=== PATIENT | male | born 1950 | race Caucasian/White ===

== ENCOUNTER 2018-05-02 09:55 | Emergency (ER) | payer MEDICARE, BC ==
[~2018-05-02] VITALS: Ht 167.6 cm; Wt 75.0 kg
[~2018-05-02 09:55] MED LIST: GLUCOPHAGE1000 MG PO; HEMOCYTE PLUS C1 CAP PO; HYDROCODONE-APA1 TAB PO; HYDROXYCHLOROQUINE; LEVAQUIN500 MG PO; MEDROL2 MG PO; PLAQUENIL200 MG PO; SYNTHROID125 MCG PO; VITAMIN D31000 UNIT PO
[2018-05-02 09:59] VITALS: Ht 167.6 cm; Wt 75.0 kg
[2018-05-02] MEDS ORDERED: CO Q-1050 MG PO (10:04)
[2018-05-02 10:37] LABS: BASOPHILS 0.5 % (0-2); EOSINOPHILS 3.5 % (0-7); HEMATOCRIT 36.8 % (42.0-54.0); HEMOGLOBIN 12.5 g/dL (13.5-17.5); IMMATURE GRANULOCYTES 0.7 % (0-5); LYMPHOCYTES 27.4 % (15-50); MCH 28.3 pg (26.0-34.0); MCV 83.3 fL (80.0-100.0); MEAN PLATELET VOLUME 8.4 fL (7.4-10.4); MONOCYTES 9.3 % (2-11); NEUTROPHILS 58.6 % (40-80); RBC 4.42 10x6/uL (4.20-6.10); RDW 13.1 % (11.5-14.5); WBC 10.5 10x3/uL (4.8-10.8)
[2018-05-02 10:48] LABS: PLATELET COUNT 238 10x3/uL (130-400)
[2018-05-02 11:02] LABS: ALBUMIN 3.2 g/dL (3.4-5.0); ALKALINE PHOSPHATASE 90 U/L (46-116); ALT (SGPT) 14 U/L (10-68); CALC OSMOLALITY 262 mosm/kg (275-300); CALCIUM 9.8 mg/dL (8.5-10.1); CARBON DIOXIDE 21.7 mmol/L (21.0-32.0); CHLORIDE - SERUM 96 mmol/L (98-107); CREATININE - SERUM 1.6 mg/dL (0.6-1.3); GLUCOSE 166 mg/dL (74-106); POTASSIUM - SERUM 4.4 mmol/L (3.5-5.1); PROTEIN - SERUM 7.2 g/dL (6.4-8.2); SODIUM 129 mmol/L (136-145); UREA NITROGEN 13 mg/dL (7-18); eGFR NON AFRICAN AMERICAN 46 mL/min (90-120)
[2018-05-02 11:15] LABS: CKMB 3.2 U/L (0.0-3.6); CREATINE KINASE 56 UL (21-232); TROPONIN-I < 0.017 ng/mL (0.000-0.060)
[2018-05-02 11:44] LABS: APPEARANCE SLT CLOUDY (CLEAR); BILIRUBIN NEGATIVE (NEGATIVE); COLOR YELLOW (YELLOW); GLUCOSE NEGATIVE (NEGATIVE); KETONE NEGATIVE (NEGATIVE); NITRITE NEGATIVE (NEGATIVE); PROTEIN TRACE mg/dL (NEGATIVE); UROBILINOGEN NORMAL (NORMAL)
[2018-05-02 11:45] LABS: BACTERIA MANY /hpf (NONE SEEN); EPITHELIAL CELLS 0-5 /hpf (0-5); GRANULAR CAST RARE /lpf (NONE SEEN); MUCUS <1+ /lpf (NONE SEEN); RED CELLS - URINE 0-5 /hpf (0-5); WHITE CELLS - URINE 25-50 /hpf (0-5)
[2018-05-02] MEDS ORDERED: LEVAQUIN500 MG PO (12:43)
[2018-05-02 13:39] VITALS: BP 150/92
== END 2018-05-02 12:58 | disposition home or self-care (01) ==
LOC: D.ER 09:55
PROVIDERS: Family Medicine
DX: T67.5XXA Heat exhaustion, unspecified, initial encounter (principal); X58.XXXA Exposure to other specified factors, initial encounter; Y93.89 Activity, other specified; Y92.019 Unspecified place in single-family (private) house as the place of occurrence of the external cause; E87.1 Hypo-osmolality and hyponatremia; N39.0 Urinary tract infection, site not specified; E11.9 Type 2 diabetes mellitus without complications; M32.9 Systemic lupus erythematosus, unspecified

== ENCOUNTER 2018-07-31 11:15 | Emergency (ER) | payer MEDICARE, BC ==
[~2018-07-31] VITALS: Ht 167.6 cm; Wt 75.5 kg
[~2018-07-31 11:15] MED LIST changes: +CO Q-1050 MG PO
[2018-07-31 11:23] VITALS: Ht 167.6 cm; Wt 75.5 kg
[2018-07-31 12:09] LABS: BASOPHILS 0.6 % (0-2); HEMATOCRIT 38.5 % (42.0-54.0); HEMOGLOBIN 13.2 g/dL (13.5-17.5); IMMATURE GRANULOCYTES 0.2 % (0-5); LYMPHOCYTES 26.7 % (15-50); MCH 29.3 pg (26.0-34.0); MCHC 34.3 g/dL (31.0-37.0); MCV 85.4 fL (80.0-100.0); MEAN PLATELET VOLUME 8.5 fL (7.4-10.4); MONOCYTES 10.2 % (2-11); NEUTROPHILS 58.3 % (40-80); PLATELET COUNT 245 10x3/uL (130-400); RBC 4.51 10x6/uL (4.20-6.10); RDW 13.8 % (11.5-14.5)
[2018-07-31 12:22] LABS: APTT 32.7 SECONDS (22.8-39.4); INR 0.98 (0.85-1.17); PROTIME 12.6 SECONDS (11.6-15.0)
[2018-07-31 12:30] LABS: ALBUMIN 3.4 g/dL (3.4-5.0); ANION GAP 16.2 mmol/L (8-16); BILIRUBIN - TOTAL 0.38 mg/dL (0.2-1.3); CALCIUM 9.1 mg/dL (8.5-10.1); CARBON DIOXIDE 24.5 mmol/L (21.0-32.0); CREATININE - SERUM 1.8 mg/dL (0.6-1.3); POTASSIUM - SERUM 4.7 mmol/L (3.5-5.1); PROTEIN - SERUM 7.7 g/dL (6.4-8.2)
[2018-07-31 13:01] LABS: APPEARANCE CLEAR (CLEAR); BILIRUBIN NEGATIVE (NEGATIVE); COLOR YELLOW (YELLOW); GLUCOSE NEGATIVE (NEGATIVE); KETONE NEGATIVE (NEGATIVE); NITRITE NEGATIVE (NEGATIVE); PROTEIN NEGATIVE (NEGATIVE); SPECIFIC GRAVITY 1.015 (1.005-1.020); UROBILINOGEN NORMAL (NORMAL)
[2018-07-31 13:02] LABS: BACTERIA FEW /hpf (NONE SEEN); EPITHELIAL CELLS 0-5 /hpf (0-5); RED CELLS - URINE 0-5 /hpf (0-5); WHITE CELLS - URINE 0-5 /hpf (0-5)
[2018-07-31 13:05] LABS: UDS - AMPHET NEGATIVE QUAL (NEGATIVE); UDS - BARB NEGATIVE QUAL (NEGATIVE); UDS - BENZO NEGATIVE QUAL (NEGATIVE); UDS - COCAINE NEGATIVE QUAL (NEGATIVE); UDS - OPIATE NEGATIVE QUAL (NEGATIVE); UDS - PCP NEGATIVE QUAL (NEGATIVE); UDS - THC NEGATIVE QUAL (NEGATIVE)
[2018-07-31 16:18] VITALS: BP 150/85
== END 2018-07-31 16:20 | disposition other institution (70) ==
LOC: D.ER 11:15
PROVIDERS: Family Medicine
DX: R41.0 Disorientation, unspecified (principal); E11.9 Type 2 diabetes mellitus without complications; M32.9 Systemic lupus erythematosus, unspecified; N28.9 Disorder of kidney and ureter, unspecified

== ENCOUNTER 2019-03-30 16:14 | Inpatient (IN) | payer MEDICARE, BC ==
[~2019-03-30] VITALS: Ht 167.6 cm; Wt 66.6 kg
--- NOTE | ~2019-03-30 | HEMODYNAMI ---
PATIENT:JETT LIMA MEDICAL RECORD: [id number] : 46 [id number] ADMISSION DATE: 03/30/19 Generatedon:03/31/201912:26 Patient name: JETT LIMA Patient #: [id number] SSN: : 1950 Date of study: 03/31/2019 Page: Of Hemodynamic Procedure Report Patient Data Patient Demographics Procedure consent was obtained First Name: JETT Gender: Male Last Name: JANIE : 1950 Patient #: [id number] Age: 69 year(s) Race: Unknown Additional ID: [id number] Contact details [address]: [address] [place] [address] State: [place] City: [place] Zip code: [address] Past Medical History Allergies: No known allergies Admission Admission Data Admission Date: 03/30/2019 Admission Time: 18:10 Room #: D.2109 Lab Results Lab Result Date: 03/31/2019 Lab Result Time: 5:45 Biochemistry Name Units Result Min Max BUN mg/dl 17 --(---*)-- 7 18 Creatinine mg/dl 1.6 --(----)-* 0.6 1.3 CBC Name Units Result Min Max Hematocrit % 30.2 *-(----)-- 42 54 Hemoglobin g/dl 10.2 *-(----)-- 13.5 17.5 Procedure Procedure Types Cath Procedure Diagnostic Procedure LHC LHC w/Coronaries Sedation Charges Moderate Sedation up to 30 minutes Procedure Description Procedure Date Procedure Date: 03/31/2019 Procedure Start Time: 11:39 Procedure End Time: 12:18 Procedure Staff Name Function Beverly Dubose RT Scrub Amish Noriega MD Performing Physician Joe Jacobs RT Monitor Volodymyr Vance RN Nurse Procedure Data Cath Procedure Fluoroscopy Diagnostic fluoroscopy Total fluoroscopy Time: time: 15.6 min 15.6 min Diagnostic fluoroscopy Total fluoroscopy dose: dose: 1579 mGy 1579 mGy Contrast Material Contrast Material Type Amount (ml) Isovue 300 185 Entry Location Entry Primary Successful Side Size Upsize Upsize Entry Closure Prado ccessful Closure Location (Fr) 1 (Fr) 2 (Fr) Remarks Device Remarks Femoral Right 5 Fr Manual artery Compression Estimated blood loss: 5 ml Diagnostic catheters Device Type Used For End Catheter Placement MULTIPACK JL 4.0 5Fr Procedure catheter DIAGNOSTIC JL 5 5Fr Procedure catheter ([id number]) MULTIPACK JL 4.0 5Fr Procedure catheter DIAGNOSTIC JL 3.5 5Fr Procedure catheter ([id number]) DIAGNOSTIC AL2 5Fr Procedure catheter ([id number]) MULTIPACK 3DRC 5Fr Procedure catheter DIAGNOSTIC AL1 5Fr Procedure catheter ([id number]) MULTIPACK Pigtail 5 Fr Procedure catheter DIAGNOSTIC MPA-2 5Fr Procedure catheter ([id number]) DIAGNOSTIC Manasquan 110cm 5 Procedure Fr catheter (892030) DIAGNOSTIC LCB 5Fr Procedure catheter ([id number]) Procedure Complications No complications Procedure Medications Medication Administration Route Dosage 0.9% NaCl I.V. 100 ml/hr Oxygen etCO2 Nasal cannula 2 l/min Heparin Flush Bag added to field 2 bags (1000units/500ml NS) Lidocaine 2% added to field 20 Versed I.V. 1 mg Fentanyl I.V. 50 mcg Hemodynamics Rest HGB: 10.2 (g/dl) Heart Rate: 111 (bpm) Pressure Samples Time Site Value (mmHg) Purpose Heart Use Rate(bpm) 11:58 LV 132/-10,11 Snapshot 101 11:59 LV 129/-2,13 Pullback 100 11:59 AO 119/54(82) Pullback 100 Gradients Valve Time Site 1 Site 2 Mean SEP/DFP Peak To Heart Use (mmHg) (sec/min) Peak Rate (mmHg) (bpm) Aortic 11:59 LV AO 6 27 10 100 129/-2,13 119/54(82) Calculations Valve P-P Mean Valve Index Valve Source Name Gradient Area Flow (cm2) Aortic 10 6 10 6 Snapshots Pre Cath Intra NCS Post Cath Vital Signs Time Heart Resp SPO2 etCO2 NIBP (mmHg) Rhythm Pain Sedation Rate (ipm) (%) (mmHg) Status Level (bpm) 11:25:47 114 16 95 0 137/89(115) NSR 0 (11) 10(A) , No pain 11:29:53 111 24 97 19.4 118/85(100) NSR 0 (11) 10(A) , No pain 11:33:59 101 24 95 20.9 99/67(79) NSR 0 (11) 10(A) , No pain 11:38:03 102 27 96 20.1 102/67(85) NSR 0 (11) 10(A) , No pain 11:42:09 99 24 96 20.1 91/62(77) NSR 0 (11) 9(A) , No pain 11:46:12 99 24 96 23.9 92/61(78) NSR 0 (11) 9(A) , No pain 11:50:16 97 22 96 10.4 90/60(75) NSR 0 (11) 9(A) , No pain 11:54:18 96 22 96 24.6 98/61(78) NSR 0 (11) 9(A) , No pain 11:58:23 101 22 96 20.9 106/60(78) NSR 0 (11) 9(A) , No pain 12:02:27 104 28 96 20.2 107/72(83) NSR 0 (11) 9(A) , No pain 12:06:31 102 23 97 17.1 107/74(87) NSR 0 (11) 9(A) , No pain 12:10:37 99 24 99 23.9 112/69(84) NSR 0 (11) 9(A) , No pain 12:14:43 100 23 100 21.6 108/74(88) NSR 0 (11) 9(A) , No pain 12:18:48 99 16 100 20.9 113/71(87) NSR 0 (11) 10(A) , No pain Medications Time Medication Route Dose Verified Delivered Reason Notes Eff ectiveness by by 11:26:55 0.9% NaCl I.V. 100 Volodymyr Volodymyr Per ml/hr Pinky Vance physician RN RN 11:27:06 Oxygen etCO2 2 Volodymyr Volodymyr for low 02 Nasal l/min Pinky Vance sats cannula RN RN 11:27:16 Heparin Flush added 2 Volodymyr Volodymyr used for Bag to bags Pinky Vance procedure (1000units/500ml field RN RN NS) 11:27:27 Lidocaine 2% added 20ml Volodymyr Volodymyr for local to vial Pinky Vance anesthetic field RN RN 11:38:12 Versed I.V. 1 mg Volodymyr Volodymyr for Lorigan Lorigan sedation RN RN 11:38:20 Fentanyl I.V. 50 Volodymyr Volodymyr for mcg Lorigan Lorshashi sedation RN registrar nurses' registry Log Time Note 11:10:25 Time tracking: Regular hours (M-F 7:00 - 5:00) 11:10:30 Plan of Care:Hemodynamics will remain stable., Cardiac rhythm will remain stable., Comfort level will be maintained., Respiratory function will remain adequate., Patient/ family verbilizes understanding of procedure., Procedure tolerated without complication., Recovers from procedure without complications.. 11:10:34 Beverly Counts RT(R) sent for patient. Start room use. 11:20:05 Patient received from [employer] II to CCL 1 Alert and oriented. Tansferred to table in Supine position. 11:20:06 Warm blankets applied, and promise hugger turned on for patient comfort. 11:20:07 Correct patient and procedure confirmed by team. 11:20:10 Signed procedure consent form obtained from patient. 11:24:44 ECG and BP/O2 sat monitors applied to patient. 11:24:45 Vital chart was started 11:26:55 0.9% NaCl 100 ml/hr I.V. was administered by Volodymyr Vance RN; Per physician; 11:27:06 Oxygen 2 l/min etCO2 Nasal cannula was administered by Volodymyr Vance RN; for low 02 sats; 11:27:16 Heparin Flush Bag (1000units/500ml NS) 2 bags added to field was administered by Volodymyr Vance RN; used for procedure; 11:27:19 Baseline sample Acquired. 11:27:22 Rhythm: sinus tachycardia 11:27:23 Full Disclosure recording started 11:27:27 Lidocaine 2% 20ml vial added to field was administered by Volodymyr Vance RN; for local anesthetic; 11:28:07 H&P Date Dictated: 03/30/2019 Within 30 days and on chart.. 11:31:00 Pre-procedure instructions explained to patient. 11:31:01 Pre-op teaching completed and patient verbalized understanding. 11:31:02 Family in patients room. 11:31:03 Patient NPO since Midnight. 11:31:07 Patient allergic to No known allergies 11:31:09 Is the patient allergic to Iodine/contrast media? No. 11:31:11 Is patient on blood thinner?No 11:31:12 Patient diabetic? Yes. 11:31:13 If diabetic: On Metformin? Yes 11:31:15 If on Metformin: Last Dose? 03/29/2019 11:31:18 Previous problem with sedation/anesthesia? No ? 11:31:21 Snore? No 11:31:22 Sleep apnea? No 11:31:23 Opens mouth fully? Yes 11:31:23 Deviated septum? No 11:31:27 Sticks out tongue? Yes 11:31:30 Airway obstruction? Yes right lower lobe resection. 11:31:33 Dentures? No ? 11:31:35 Pre procedure: right dorsailis pedis pulse 2+ Normal; easily identifiable; not easily obliterated 11:31:38 Patient pain scale 0/10 ?. 11:31:44 IV patent on arrival in right hand with 0.9% NaCl at O. 11:32:16 Lab Result : Hemoglobin 10.2 g/dl 11:32:16 Lab Result : Hematocrit 30.2 % 11:32:16 Lab Result : BUN 17 mg/dl 11:32:16 Lab Result : Creatinine 1.6 mg/dl 11:32:19 Lab results completed and on chart. 11:32:22 Right groin area was prepped with chlora-prep and draped in sterile fashion 11:32:23 Sharps counted by scrub and verified by R.N. 11:32:23 Alarms reviewed by R. N. 11:32:25 Use device set Femoral Dx 11:32:26 Bag Decanter (2002) opened to sterile field. 11:32:26 ACIST Syringe (32665) opened to sterile field. 11:32:27 Medline Cath Pack ([id number]) opened to sterile field. 11:32:28 ACIST Manifold (99398) opened to sterile field. 11:32:28 ACIST Hand Control (80028) opened to sterile field. 11:32:29 Tegaderm 4 x 4 (1626W) opened to sterile field. 11:32:30 DIAGNOSTIC Multipack 5Fr catheter set (IV3545) opened to sterile field. 11:32:30 SHEATH 5FR Savage (EYD235) opened to sterile field. 11:32:31 DIAGNOSTIC WIRE .035 260cm J wire (190826) opened to sterile field. 11:37:44 Final Timeout: patient, procedure, and site verified with staff and physician. All members of the team are in agreement. 11:37:44 --------ALL STOP TIME OUT------ 11:37:44 Physician arrived 11:37:46 Right groin site verified by team. 11:37:48 Maximum allowable Isovue 300 dose 300ml. Physician notified. (300ml for normal creatinines. For patients with creatinine of 1.7 or higher multiply weight(kg) x 5 divided by creatinine.) 11:37:51 Fire Safety Assessment: A--An alcohol-based skin anteseptic being used preoperatively., C--Open oxygen or nitrous oxide is being used., D--An ESU, laser, or fiber-optic light is being used. 11:37:53 Physical assessment completed. ASA score P 2 - A patient with mild systemic disease as per Amish Noriega MD. 11:37:55 Sedation plan: IV Moderate Sedation Medication:Versed, Fentanyl 11:38:05 Zero performed for pressure channel P1 11:38:12 Versed 1 mg I.V. was administered by Volodymyr Vance RN; for sedation; 11:38:20 Fentanyl 50 mcg I.V. was administered by Volodymyr Vance RN; for sedation; 11:39:45 Procedure started. 11:39:47 Local anesthetic to right femoral artery with Lidocaine 2% by Amish Noriega MD.INITIAL ACCESS ONLY 11:39:58 A 5 Fr sheath was inserted into the Right Femoral artery 11:40:03 A MULTIPACK JL 4.0 5Fr catheter was advanced over the wire and used for Procedure. 11:40:33 Catheter removed. unable to cannulate vessel. 11:41:22 A DIAGNOSTIC JL 5 5Fr catheter (921321F) was advanced over the wire and used for Procedure. 11:41:43 LCA angiography performed. 11:43:32 Catheter exchanged over wire. 11:43:36 A MULTIPACK JL 4.0 5Fr catheter was advanced over the wire and used for Procedure. 11:45:51 Catheter removed. unable to cannulate vessel. 11:46:00 A DIAGNOSTIC JL 3.5 5Fr catheter (995029G) was advanced over the wire and used for Procedure. 11:48:31 Catheter removed. unable to cannulate vessel. 11:48:40 A DIAGNOSTIC AL2 5Fr catheter (421709T) was advanced over the wire and used for Procedure. 11:50:58 Catheter removed. unable to cannulate vessel. 11:51:03 A MULTIPACK 3DRC 5Fr catheter was advanced over the wire and used for Procedure. 11:51:39 RCA angiography performed. 11:53:29 A DIAGNOSTIC AL1 5Fr catheter (351061G) was advanced over the wire and used for Procedure. 11:54:50 RCA / LAD angiography performed. 11:57:15 Catheter exchanged over wire. 11:57:20 A MULTIPACK Pigtail 5 Fr catheter was advanced over the wire and used for Procedure. 11:58:37 LV gram done using CASTELLON 11:58:38 Injector settings: Ml/sec: 10, Volume: 20, 11:58:40 LV hemodynamics recorded. 11:59:02 EF : 50 % 11:59:12 Aortic Root visualized 12:00:45 Catheter exchanged over wire. 12:01:56 A DIAGNOSTIC MPA-2 5Fr catheter (214260M) was advanced over the wire and used for Procedure. 12:03:45 LCA angiography performed. 12:04:50 A DIAGNOSTIC Man[place]quan 110cm 5 Fr catheter (449160) was advanced over the wire and used for Procedure. 12:07:07 Catheter removed. unable to cannulate vessel. 12:07:15 GUIDE 5FR EBU 3.0 catheter (UX4GCE55) opened to sterile field. 12:07:27 5 Fr ebu 3.0 guide catheter was inserted over the wire 12:09:08 LCA angiography performed. 12:10:47 Catheter exchanged over wire. 12:11:13 A DIAGNOSTIC LCB 5Fr catheter (067545B) was advanced over the wire and used for Procedure. 12:12:26 LCA angiography performed. 12:15:10 Catheter removed. 12:15:13 EXOSEAL 5Fr (EX500) opened to sterile field. 12:15:23 Sheath removed intact; hemostasis achieved with Manual Compression to the Right Femoral artery. 12:15:24 Procedure ended.(Physican Out) 12:15:43 Fluoroscopy time 15.60 minutes. 12:15:48 Fluoroscopy dose: 1579 mGy 12:15:48 Flurop Dose total: 1579 12:15:56 Contrast amount:Isovue 300 185ml. 12:15:58 Insertion/operative site no bleeding no hematoma. 12:15:58 Sharps counted by scrub and verified by R.N. 12:16:02 Post-op/insertion site Right Femoral artery dressed using a 4 x 4 and Tegaderm. 12:16:07 Post right femoral artery:stable, soft, clean and dry 12:16:08 Post Procedure Pulses reassessed and unchanged 12:16:12 Post-procedure physical assessment completed. ASA score P 2 - A patient with mild systemic disease as per Amish Noriega MD. 12:16:14 Post procedure rhythm: unchanged. 12:16:16 Estimated blood loss: 5 ml 12:16:18 Patient needs reinforcement of post procedure teaching. 12:16:18 Post procedure instruction explained to patient.Patient verbalizes understanding. 12:16:43 Procedure type changed to Cath procedure, Diagnostic procedure, LHC, LHC w/Coronaries, Sedation Charges, Moderate Sedation up to 30 minutes 12:18:32 Procedure and supply charges have been captured, reviewed, submitted and are correct. 12:18:34 Procedure Complication : No complications 12:18:37 Vital chart was stopped 12:18:38 See physician's report for complete and final results. 12:18:39 Report given to PCU. 12:18:42 Patient transfered to PCU with Stretcher. 12:18:43 Full Disclosure recording stopped 12:18:43 Procedure ended. 12:18:48 End room use (Document Last) Device Usage Item Name Manufacture Quantity Catalog Hospital Part Current Minimal L ot# / Number Charge Number Stock Stock Serial# Code ACIST Acist 1 07452 676568 244070 635814 20 Syringe Medical (18499) Systems Inc Bag Microtek 1 188956 24301 266697 5 Decanter Medical Inc. () Medline Medline 1 [id number] 276657 50453 994752 5 Cath Pack ([id number]) ACIST Hand Acist 1 37226 417666 813809 369583 5 Control Medical (84949) Systems Inc ACIST Acist 1 35679 499257 235894 725985 5 Manifold Medical (59291) Systems Inc Tegaderm 4 3M 1 1626W 335160 318593 153259 5 x 4 (1626W) SHEATH 5FR Terumo 1 [id number] 639924 028112 329237 5 Savage (NYD402) DIAGNOSTIC Cardinal 1 [id number] 723996 93765 724969 30 Multipack Health 5Fr catheter set (ZX6253) DIAGNOSTIC St Piyush 1 411685 308265 731610 031196 30 WIRE .035 260cm J wire (950998) MULTIPACK Cardinal 1 386071 5 JL 4.0 5Fr Health catheter DIAGNOSTIC Cardinal 1 958470J 771885 481274 867737 5 JL 5 5Fr Health catheter (112248B) DIAGNOSTIC Cardinal 1 672591I 618286 649641 375121 5 JL 3.5 5Fr Health catheter (630427C) DIAGNOSTIC Cardinal 1 760993B 878440 520336 356380 15 AL2 5Fr Health catheter (410935H) MULTIPACK Cardinal 1 600344 5 3DRC 5Fr Health catheter DIAGNOSTIC Cardinal 1 510288Y 347143 798346 737955 15 AL1 5Fr Health catheter (990503T) MULTIPACK Cardinal 1 698384 5 Pigtail 5 Health Fr catheter DIAGNOSTIC Cardinal 1 626364Y 649338 658643 385568 5 MPA-2 5Fr Health catheter (563935D) DIAGNOSTIC Terumo 1 40-3853 174928 969676 494602 5 [place] 110cm 5 Fr catheter (694804) GUIDE 5FR Medtronic 1 [id number] 930371 778497 587179 1 EBU 3.0 catheter ([id number]) DIAGNOSTIC Cardinal 1 966112D 401249 151661 892425 5 LCB 5Fr Health catheter (216199I) EXOSEAL 5Fr Cardinal 1 EX500 624520 326960 343390 10 (EX500) Health Signature Audit Seaman Stage Time Signature Unsigned Intra-Procedure 03/31/2019 Joe Jacobs RT(R) 12:22:58 PM RT(R) 03/31/2019 12:26:22 PM Intra-Procedure 03/31/2019 Joe Jacobs 12:26:42 PM RT(R) Signatures Monitor : Joe Jacobs RT Signature : Date : Time : [address] [place] [address]
[2019-03-30] MEDS ORDERED: GLUCOPHAGE500 MG PO (16:31)
[2019-03-30] MEDS ORDERED: BAYER CHEWABLE81 MG PO (16:32)
[2019-03-30] MEDS ORDERED: [UNRECOGNIZED DRUG - OTHER] (16:32)
[2019-03-30] MEDS ORDERED: LIPITOR20 MG PO (16:36)
[2019-03-30] MEDS ORDERED: COZAAR50 MG PO (16:37)
[2019-03-30 17:21] LABS: BASOPHILS 0.2 % (0-2); EOSINOPHILS 0.5 % (0-7); HEMATOCRIT 33.4 % (42.0-54.0); HEMOGLOBIN 11.5 g/dL (13.5-17.5); IMMATURE GRANULOCYTES 0.5 % (0-5); LYMPHOCYTES 9.7 % (15-50); MCH 28.8 pg (26.0-34.0); MCHC 34.4 g/dL (31.0-37.0); MCV 83.7 fL (80.0-100.0); MEAN PLATELET VOLUME 8.1 fL (7.4-10.4); MONOCYTES 8.1 % (2-11); PLATELET COUNT 254 10x3/uL (130-400); RBC 3.99 10x6/uL (4.20-6.10); RDW 13.2 % (11.5-14.5); WBC 16.7 10x3/uL (4.8-10.8)
[2019-03-30 17:34] LABS: INR 1.13 (0.85-1.17)
[2019-03-30 17:36] LABS: ALBUMIN 3.1 g/dL (3.4-5.0); ALKALINE PHOSPHATASE 99 U/L (46-116); ALT (SGPT) 15 U/L (10-68); BILIRUBIN - TOTAL 0.54 mg/dL (0.2-1.3); CALC OSMOLALITY 257 mosm/kg (275-300); CALCIUM 8.6 mg/dL (8.5-10.1); CARBON DIOXIDE 20.7 mmol/L (21.0-32.0); CHLORIDE - SERUM 93 mmol/L (98-107); CREATININE - SERUM 1.7 mg/dL (0.6-1.3); GLUCOSE 136 mg/dL (74-106); POTASSIUM - SERUM 4.8 mmol/L (3.5-5.1); PROTEIN - SERUM 7.3 g/dL (6.4-8.2); SODIUM 127 mmol/L (136-145); UREA NITROGEN 16 mg/dL (7-18); eGFR NON AFRICAN AMERICAN 42 mL/min (90-120)
[2019-03-30 17:44] LABS: UDS - AMPHET NEGATIVE QUAL (NEGATIVE); UDS - BARB NEGATIVE QUAL (NEGATIVE); UDS - BENZO NEGATIVE QUAL (NEGATIVE); UDS - COCAINE NEGATIVE QUAL (NEGATIVE); UDS - OPIATE NEGATIVE QUAL (NEGATIVE); UDS - PCP NEGATIVE QUAL (NEGATIVE); UDS - THC NEGATIVE QUAL (NEGATIVE)
[2019-03-30 17:47] LABS: CKMB 0.7 U/L (0.0-3.6); CREATINE KINASE 47 UL (21-232); THYROID STIMULATING HORMONE 0.21 uIU/mL (0.36-3.74)
[2019-03-30 17:51] LABS: APPEARANCE CLEAR (CLEAR); BILIRUBIN NEGATIVE (NEGATIVE); COLOR YELLOW (YELLOW); GLUCOSE NEGATIVE (NEGATIVE); KETONE NEGATIVE (NEGATIVE); NITRITE NEGATIVE (NEGATIVE); PROTEIN 1+ mg/dL (NEGATIVE); UROBILINOGEN NORMAL (NORMAL)
[2019-03-30 18:00] LABS: TROPONIN-I < 0.017 ng/mL (0.000-0.060)
--- NOTE | 2019-03-30 18:01 | NUR ---
Critical lab Magnesium 1.0 dr. posada informed at 7776
--- NOTE | 2019-03-30 18:19 | MORECARE ---
CASE MANAGEMENT DISCHARGE SUMMARY PATIENT: JETT LIMA UNIT: [id number] ADM DATE: 03/30/19 AGE: 69 : 48 SEX: M ROOM/BED: D.2100 AUTHOR: JENNIFER CLARK PHYSICIAN: REFERRING PHYSICIAN: SAM HINTON MD DATE OF SERVICE: 03/30/19 Discharge Plan Patient Name: JETT LIMA Facility: [facility]:[place] : 1950 Planned Disposition: Home Anticipated Discharge Date: 04/01/19 Discharge Date: Expected LOS: 2 Initial Reviewer: [email or web address] Initial Review Date: 03/30/2019 Generated: 03/30/19 7:19 pm Patient Name: JETT LIMA Page 94225 at 1819 All edits/amendments must be made on the electronic document DICTATION DATE: 03/30/191818 DIGITAL CONTENT MARKETING MANAGER: TAMIKO 03/30/191818 RPT#: [id number] DC DATE: STATUS: ADM IN [facility] [address] [place] [address] END OF REPORT
--- NOTE | 2019-03-30 18:29 | MORECARE ---
CASE MANAGEMENT DISCHARGE SUMMARY PATIENT: JETT MARIE UNIT: [id number] ADM DATE: 03/30/19 AGE: 69 : 48 SEX: M ROOM/BED: D.8128 AUTHOR: EDUARDO,JENNIFER PHYSICIAN: REFERRING PHYSICIAN: SAM HINTON MD DATE OF SERVICE: 03/30/19 Discharge Plan Patient Name: JETT MARIE Facility: [facility]:[place] : 1950 Planned Disposition: Home Anticipated Discharge Date: 04/01/19 Discharge Date: Expected LOS: 2 Initial Reviewer: [email or web address] Initial Review Date: 03/30/2019 Generated: 03/30/19 7:28 pm DCP- Discharge Planning Updated by [email or web address]: Melody Vázquez on 03/30/19 5:[address] Patient Name: JETT MARIE Admission Status: ER Accout number: [id number] Admission Date: 03-30-2019 : 1950 Admission Diagnosis: Attending: CINDI HINTON Current LOS: 1 Anticipated DC Date: 04-01-2019 Planned Disposition: Home with independently. Denied dc needs at this time. Primary Insurance: MEDICARE A & B Discharge Planning Comments: CM met with patient and his , Marina Marie, to complete initial dc planning assessment. CM educated patient on the CM role and verbal consent given by patient to complete assessment. CM verified patient's address, phone number, and emergency contact phone numbers. Patient lives at home independently with his . At discharge patient plans to return home with his and feels this is a safe discharge. CM discussed availability of home health, rehab services, and medical equipment. Patient denied known discharge needs at this time. Patient reports his will transport him home at time of discharge. CM will continue to follow and will assist as needed with dc plans/needs. Social Media Marketing Specialist: Melody Vázquez RN, [facility] DCPIA - Discharge Planning Initial Assessment Updated by [email or web address]: Melody Vázquez on 03/30/19 6:20 pm * Is the patient Alert and Oriented? Yes * How many steps to enter\exit or inside your home? * PCP Dr. Marcelino * Pharmacy [facility] near the [facility] * Preadmission Environment Home with Family * ADLs Independent * Equipment Glucometer * Other Equipment tries to check his sugar everyday. * List name and contact numbers for known caregivers / representatives who currently or will assist patient after discharge: Marina Marie - - [phone] * Verbal permission to speak to the caregivers and representatives has been obtained from the patient. Yes * Community resources currently utilized None * Additional services required to return to the preadmission environment? No * Can the patient safely return to the preadmission environment? Yes * Has this patient been hospitalized within the prior 30 days at any hospital? No Last DP export: 03/30/19 5:19 p Patient Name: JETT MARIE Page 96220 at 1829 All edits/amendments must be made on the electronic document DICTATION DATE: 03/30/191827 COLOR COATER: TAMIKO 03/30/191827 RPT#: [id number] DC DATE: STATUS: ADM IN [facility] [address] [place] [address] END OF REPORT
--- NOTE | 2019-03-30 19:28 | NUR ---
second EKG completed at [address] posada request - EKG showed Sinus Tachycardia
[2019-03-30 19:35] VITALS: BP 134/81
[2019-03-30 20:00] VITALS: BP 108/63
[2019-03-30 20:02] VITALS: BP 108/63; BMI 27.6
[2019-03-30 23:25] LABS: CREATINE KINASE 75 UL (21-232)
[2019-03-30 23:27] LABS: TROPONIN-I 0.386 ng/mL (0.000-0.060)
--- NOTE | 2019-03-30 23:36 | NUR ---
NOTIFIED OF ELEVATED TROP BY LAB. PAGED AT THIS TIME.
--- NOTE | 2019-03-30 23:51 | NUR ---
HAS YET TO RETURN CALL. PAGED A SECOND TIME.
[2019-03-31] VITALS: BP 98/61
--- NOTE | 2019-03-31 00:04 | NUR ---
MAURILIO BANGURA PAGED AT THIS TIME.
[2019-03-31 04:00] VITALS: BP 114/67
[2019-03-31 06:10] LABS: BASOPHILS 0.2 % (0-2); EOSINOPHILS 0.2 % (0-7); HEMATOCRIT 30.2 % (42.0-54.0); HEMOGLOBIN 10.2 g/dL (13.5-17.5); IMMATURE GRANULOCYTES 0.3 % (0-5); LYMPHOCYTES 12.7 % (15-50); MCH 28.3 pg (26.0-34.0); MCHC 33.8 g/dL (31.0-37.0); MCV 83.9 fL (80.0-100.0); MEAN PLATELET VOLUME 8.2 fL (7.4-10.4); MONOCYTES 6.3 % (2-11); NEUTROPHILS 80.3 % (40-80); PLATELET COUNT 257 10x3/uL (130-400); RDW 13.3 % (11.5-14.5); WBC 19.5 10x3/uL (4.8-10.8)
[2019-03-31 06:41] LABS: ALKALINE PHOSPHATASE 78 U/L (46-116); ALT (SGPT) 12 U/L (10-68); BILIRUBIN - TOTAL 0.63 mg/dL (0.2-1.3); CALC OSMOLALITY 263 mosm/kg (275-300); CALCIUM 8.1 mg/dL (8.5-10.1); CARBON DIOXIDE 20.4 mmol/L (21.0-32.0); CHLORIDE - SERUM 98 mmol/L (98-107); CKMB 10.9 U/L (0.0-3.6); CREATININE - SERUM 1.6 mg/dL (0.6-1.3); GLUCOSE 110 mg/dL (74-106); POTASSIUM - SERUM 4.5 mmol/L (3.5-5.1); PROTEIN - SERUM 6.1 g/dL (6.4-8.2); SODIUM 130 mmol/L (136-145); UREA NITROGEN 17 mg/dL (7-18); eGFR NON AFRICAN AMERICAN 45 mL/min (90-120)
[2019-03-31 06:47] LABS: ALBUMIN 2.3 g/dL (3.4-5.0); CREATINE KINASE 312 UL (21-232)
[2019-03-31 06:48] LABS: TROPONIN-I 2.676 ng/mL (0.000-0.060)
[2019-03-31 07:46] VITALS: BP 100/56
--- NOTE | 2019-03-31 09:44 | NUR ---
PT LAYING IN BED ALERT AND ORIENTRED. PT COUGHING UP RED/BROWN TINGED SPUTUM. PT RR EVEN AND UNLABORED AT THIS TIME. PT RUNNING SINUS TACH 108 ON TELEMETRY, PER SOPHIE OVEN TECHNICIAN. PT TEMP 98.6 AT THIS TIME. PREVIOUS NURSE TREATED FEVER WITH TYLENOL. NO S/S OF DISTRESS AT THIS TIME. PT NPO FOR HEART CATH TODAY. BED LOW CALL LIGHT WITHIN REACH. WILL CONTINUE TO MONITOR.
--- NOTE | 2019-03-31 10:33 | NUR ---
I have reviewed this patient and I concur with the Shift Assessment completed by the Licensed Practical Nurse today this shift.
--- NOTE | 2019-03-31 10:42 | NUR ---
LEAD SOFTWARE QA ENGINEER CALLED FOR PRE-OP ON PT.
[2019-03-31 11:33] VITALS: BP 111/66
--- NOTE | 2019-03-31 12:30 | NUR ---
PT RETURNED FROM BACK TENDER CYLINDER ALERT AND ORIENTED RR EVEN AND UNLABORED VITALS STABLE. PT DENIES ANY PAIN OR NEEDS AT THIS TIME. BED LOW CALL LIGHT WITHIN REACH. WILL CONTINUE TO MONITOR.
[2019-03-31 12:35] LABS: % SATURATION 8 % (15-55); IRON 12 ug/dl (35-150); TOTAL IRON BIND CAPACITY 146 ug/dl (260-445); UNSAT IRON BIND CAPACITY 134 ug/dl (150-375)
[2019-03-31 13:50] LABS: HEMATOCRIT 31.3 % (42.0-54.0); HEMOGLOBIN 10.7 g/dL (13.5-17.5); MCH 28.8 pg (26.0-34.0); MCHC 34.2 g/dL (31.0-37.0); MCV 84.1 fL (80.0-100.0); MEAN PLATELET VOLUME 8.1 fL (7.4-10.4); RBC 3.72 10x6/uL (4.20-6.10); RDW 13.5 % (11.5-14.5)
[2019-03-31 13:55] LABS: PROTIME 16.4 SECONDS (11.6-15.0)
[2019-03-31 13:59] LABS: APTT 41.5 SECONDS (22.8-39.4); INR 1.38 (0.85-1.17)
[2019-03-31 15:10] VITALS: BP 127/73
--- NOTE | 2019-03-31 15:21 | NUR ---
PT STARTED ON HEPARIN DRIP. PT ALERT AND ORIENTED. DENIES ANY PAIN OR NEEDS AT THIS POINT. BED LOW CALL LIGHT WITHIN REACH. WILL CONTINUE TOMARROW.
--- NOTE | 2019-03-31 19:28 | NUR ---
PT IN BED AT BEDSIDE. DRESSED WOUND TO L LEG USING A WET TO DRY TECHNIQUE. THIS IS PATIENTS HOME ROUTINE PRESCRIBED BY DR. VILLAREAL. PT DENIES NEEDS AT THIS TIME.
[2019-03-31 20:00] VITALS: BP 118/62
[2019-04-01] VITALS (7 sets, daily range): BP systolic 116–152; BP diastolic 73–98
[2019-04-01 02:48] LABS: BASOPHILS 0.2 % (0-2); EOSINOPHILS 2.1 % (0-7); HEMATOCRIT 30.4 % (42.0-54.0); HEMOGLOBIN 10.2 g/dL (13.5-17.5); IMMATURE GRANULOCYTES 0.4 % (0-5); LYMPHOCYTES 14.7 % (15-50); MCH 28.4 pg (26.0-34.0); MCHC 33.6 g/dL (31.0-37.0); MCV 84.7 fL (80.0-100.0); MEAN PLATELET VOLUME 8.2 fL (7.4-10.4); NEUTROPHILS 75.6 % (40-80); PLATELET COUNT 252 10x3/uL (130-400); RBC 3.59 10x6/uL (4.20-6.10); RDW 13.3 % (11.5-14.5); WBC 15.9 10x3/uL (4.8-10.8)
[2019-04-01 03:01] LABS: ALBUMIN 2.3 g/dL (3.4-5.0); ANION GAP 17.4 mmol/L (8-16); BILIRUBIN - TOTAL 0.44 mg/dL (0.2-1.3); CALCIUM 8.2 mg/dL (8.5-10.1); CARBON DIOXIDE 19.1 mmol/L (21.0-32.0); CREATININE - SERUM 1.4 mg/dL (0.6-1.3); MAGNESIUM - SERUM 1.5 mg/dL (1.8-2.4); PHOSPHOROUS 2.5 mg/dL (2.5-4.9); POTASSIUM - SERUM 4.5 mmol/L (3.5-5.1); PROTEIN - SERUM 6.3 g/dL (6.4-8.2)
--- NOTE | 2019-04-01 07:00 | NUR ---
RECEIVED REPORT. ASSUMED CARE OF PATIENT. CALL LIGHT WITHIN REACH. ALERT/ORIENTED. RESP EVEN AND UNLABORED. NO DISTRESS.
--- NOTE | 2019-04-01 07:21 | NUR ---
PATIENT LEFT UNIT VIA WHEELCHAIR FOR CTA OF CHEST AT THIS TIME.
--- NOTE | 2019-04-01 07:41 | NUR ---
RETURNED FROM CTA. HEPARIN AND FLUIDS INFUSING ORDERED. NO DISTRESS.
--- NOTE | 2019-04-01 11:10 | NUR ---
FSBS 142. NO INSULIN COVERAGE PER SLIDING SCALE.
--- NOTE | 2019-04-01 11:23 | NUR ---
RECEIVED VERBAL ORDER FROM [place] TO CHANGE CODE STATUS IN COMPUTER PATIENT PROVIDED TO US ADVANCED PLAN OF CARE WITH QUALITY OF LIFE MEASURES THAT PATIENT HAS DESIGNATED FOR HIMSELF. MICKEY WHITING CHARGE CO SIGNED ORDER WITH THIS BONDING MACHINE SETTER.
--- NOTE | 2019-04-01 16:12 | NUR ---
FSBS 149. NO INSULIN PER SLIDING SCALE. HUMIDIFICATION PLACED TO OXYGEN AT THIS TIME. NO DISTRESS.
--- NOTE | 2019-04-01 16:44 | NUR ---
RAPID RESPONSE CALLED DUE TO PATIENT TACHYCARDIC AND COMPLAINING OF DYSPNEA. RT CALLED TO BEDSIDE. O2 INCREASED TO 6 LITERS. PATIENT SWITCHED TO HIGH FLOW NASAL CANULA PATIENT O2 SATURATION 84%. ICU STAFF, RADIOLOGY, AND LAB AT BEDSIDE. EKG COMPLETE AT THIS TIME.
[2019-04-01 16:53] LABS: BASOPHILS 0.2 % (0-2); EOSINOPHILS 1.9 % (0-7); HEMATOCRIT 33.5 % (42.0-54.0); HEMOGLOBIN 11.3 g/dL (13.5-17.5); IMMATURE GRANULOCYTES 0.4 % (0-5); LYMPHOCYTES 13.3 % (15-50); MCH 28.8 pg (26.0-34.0); MCHC 33.7 g/dL (31.0-37.0); MCV 85.2 fL (80.0-100.0); MEAN PLATELET VOLUME 8.2 fL (7.4-10.4); MONOCYTES 6.8 % (2-11); NEUTROPHILS 77.4 % (40-80); PLATELET COUNT 250 10x3/uL (130-400); RBC 3.93 10x6/uL (4.20-6.10); RDW 13.3 % (11.5-14.5); WBC 16.6 10x3/uL (4.8-10.8)
--- NOTE | 2019-04-01 17:02 | NUR ---
SPOKE WITH DR MORA REGARDING RAPID RESPONSE, PT HEART RATE IS 137-140S SINUS TACH PER EKG. PT EXPERIENCING SHORTNESS OF BREATH DURIING INITIATION OF RAPID RESPONSE. PULSE OX 86% UPON ARRIVAL AT 3L NC. PER RT PTS PULSE OX TRENDS 89-93% ON 3L NC. 15L HIGH FLOW NC PLACED, OXYGEN SAT INCREASED TO 93%. DR MORA UPDATED OF THIS. ORDER RECIEVED FROM DR MORA TO OBTAIN STAT CTA CHEST FOR PE PROTOCOL.
[2019-04-01 17:06] LABS: ALBUMIN 2.4 g/dL (3.4-5.0); ALKALINE PHOSPHATASE 104 U/L (46-116); ALT (SGPT) 26 U/L (10-68); BILIRUBIN - TOTAL 0.43 mg/dL (0.2-1.3); CALCIUM 8.3 mg/dL (8.5-10.1); CARBON DIOXIDE 20.9 mmol/L (21.0-32.0); CHLORIDE - SERUM 96 mmol/L (98-107); CREATININE - SERUM 1.5 mg/dL (0.6-1.3); POTASSIUM - SERUM 4.4 mmol/L (3.5-5.1); PROTEIN - SERUM 6.9 g/dL (6.4-8.2); SODIUM 127 mmol/L (136-145); UREA NITROGEN 13 mg/dL (7-18); eGFR NON AFRICAN AMERICAN 49 mL/min (90-120)
[2019-04-01 17:07] LABS: CALC OSMOLALITY 257 mosm/kg (275-300); GLUCOSE 149 mg/dL (74-106)
[2019-04-01 17:19] LABS: ANION GAP 15.1 mmol/L (8-16); CARBON DIOXIDE 20.4 mmol/L (21.0-32.0); CREATININE - SERUM 1.5 mg/dL (0.6-1.3); POTASSIUM - SERUM 4.5 mmol/L (3.5-5.1)
[2019-04-01 17:23] LABS: CKMB 22.8 U/L (0.0-3.6); CREATINE KINASE 266 UL (21-232)
[2019-04-01 17:24] LABS: TROPONIN-I 3.293 ng/mL (0.000-0.060)
--- NOTE | 2019-04-01 17:50 | NUR ---
SPOKE WITH TO UPDATE HER ON PATIENTS CONDITION AND THAT HAD BEEN NOTIFIED AND A CTA OF THE CHEST WAS ORDERED. AWAITING RESULTS. NOTIFIED OF ABNORMAL TROPONIN AND REMINDED MD THAT PATIENT UNABLE TO BE STENTED AND IN NEED OF CABG AND THAT IS ON THE CASE AND THAT PATIENT IS CURRENTLY ON A HEPARIN DRIP. NO NEW ORDERS RECIEVED. AWAITING FOR CTA TO RESULT TO CALL BACK FOR ANY ADDITIONAL ORDERS. SPOKE WITH PATIENTS TO NOTIFY HER OF PATIENT EPISODE OF DYSPNEA AND NOW PATIENT HAS RETURNED TO BASELINE. THANKED THIS SALOON KEEPER FOR CALLING.
--- NOTE | 2019-04-01 17:58 | NUR ---
PATIENT SITTING IN BED. STATES HE DOESN'T FEEL BAD NOW THAT THE COUGHING HAS STOPPED. PATIENT WITH ATTENTION TOWARD TELEVISION. NO DISTRESS. CALL LIGHT WITHIN REACH. O2 SAT 93% ON 10 LITERS VIA HIGH FLOW. BP 152/61.
--- NOTE | 2019-04-01 18:29 | NUR ---
DR.ST.JOHN BORWN TO INFORM OF CTA CHEST RESULTS
--- NOTE | 2019-04-01 18:33 | NUR ---
NEW ORDERS RECEIVED FROM FOR METOPROLOL 50MG NOW AND BID FOR ST 143, BP 143/86.
--- NOTE | 2019-04-01 18:48 | NUR ---
METOPROLOL INITIATED. ASSISTED PATIENT BACK FROM RESTROOM. PATIENT LYING IN BED WITH HOB ELEVATED AT THIS TIME. CALL LIGHT WITHIN REACH.
--- NOTE | 2019-04-01 19:23 | NUR ---
PT IN BED. WATCHING TELEVISION. DENIES NEEDS AT THIS TIME.
--- NOTE | 2019-04-01 22:16 | NUR ---
PT 02 SAT AT 83% RESPIRATIONS AT 40. MD PAGED AND NOTIFIED OF PT CONDITION. ORDERS GIVEN. INFORMED [employer] HISTORY TEACHER OF MD ORDER TO TRANSFER PT.
--- NOTE | 2019-04-01 23:00 | NUR ---
RECEIVED PT FROM FLOOR TO ICU ROOM 0354. PT ALERT AND ORIENTED X4 DENIES PAIN OR SOB. PLACED ON BIPAP PER TDE RT. PLACED ON MONITOR ALARMS SET ON AND AUDIBLE. RIGHT HAND PIV 20 GUAGE PATENT HEPARIN GTT INFUSING.
--- NOTE | 2019-04-01 23:30 | NUR ---
BIPAP O2 DOWN TO 80% SEE RT NOTES
[2019-04-02] VITALS (24 sets, daily range): BP systolic 113–145; BP diastolic 76–98
--- NOTE | 2019-04-02 01:00 | NUR ---
PT REQUESTING URINAL URINE CLEAR YELLOW URINE
[2019-04-02 02:55] LABS: BASOPHILS 0.1 % (0-2); EOSINOPHILS 0.1 % (0-7); HEMATOCRIT 32.4 % (42.0-54.0); HEMOGLOBIN 10.9 g/dL (13.5-17.5); IMMATURE GRANULOCYTES 0.3 % (0-5); LYMPHOCYTES 7.2 % (15-50); MCH 28.5 pg (26.0-34.0); MCHC 33.6 g/dL (31.0-37.0); MCV 84.6 fL (80.0-100.0); MEAN PLATELET VOLUME 8.3 fL (7.4-10.4); MONOCYTES 3.5 % (2-11); NEUTROPHILS 88.8 % (40-80); PLATELET COUNT 253 10x3/uL (130-400); RBC 3.83 10x6/uL (4.20-6.10); RDW 13.3 % (11.5-14.5); WBC 18.1 10x3/uL (4.8-10.8)
--- NOTE | 2019-04-02 03:00 | NUR ---
REASSESSMENT BIPAP DOWN TO 40 TOLERATING WELL RESTING DENIES PAIN CPOC
[2019-04-02 03:06] LABS: ALBUMIN 2.1 g/dL (3.4-5.0); BILIRUBIN - TOTAL 0.46 mg/dL (0.2-1.3); CALCIUM 8.2 mg/dL (8.5-10.1); CARBON DIOXIDE 20.6 mmol/L (21.0-32.0); CREATININE - SERUM 1.5 mg/dL (0.6-1.3); MAGNESIUM - SERUM 1.7 mg/dL (1.8-2.4); POTASSIUM - SERUM 4.6 mmol/L (3.5-5.1); PROTEIN - SERUM 6.7 g/dL (6.4-8.2)
--- NOTE | 2019-04-02 05:00 | NUR ---
DR ROMANO CALLED TO CHECK ON PT STATUS ORDERED ABG AND CHEST XRAY
--- NOTE | 2019-04-02 07:28 | NUR ---
UP IN BED AWAKE, BIPAP IN PLACE. PT DENIES ANY NEEDS. VSS. TURNS SELF Q2H. NO ACUTE DISTRESS NOTED. WILL CONTINUE PLAN OF CARE.
--- NOTE | 2019-04-02 09:20 | NUR ---
OXYGEN SATURATION DECREASSED TO 82% WITH GOOD WAVEFORM AT 4L HIGH FLOW NASAL CANNULA. BIPAP PLACED AT THIS TIME, FIO2 OF 40%, OXYGEN SATURATION STILL AT 82% WITH GOOD WAVEFORM. FIO2 INCREASED TO 45% ON BIPAP, OXYGEN SATURATION INCREASED UP TO 90% THEN HELD AT 95% WITH GOOD WAVEFORM. AT BEDSIDE. PT DENIES ANY NEEDS OR DISCOMFORTS. WILL CONTINUE PLAN OF CARE.
--- NOTE | 2019-04-02 11:09 | NUR ---
IV PLACED TO LT FOREARM, 20G, FLUSHES WELL X 1 ATTEMPT.
[2019-04-02 11:20] LABS: TROPONIN-I 14.273 ng/mL (0.000-0.060)
--- NOTE | 2019-04-02 11:40 | NUR ---
NOTED TROPONIN ELEVATION FROM [address] MOAR CALLED AND NOTIFIED, STATED HE WOULD SPEAK WITH DR CASTELLANOS TOMORROW FOR FURTHER POSSIBLE ORDERS BUT UNTIL THEN KEEP NPO AFTER MIDNIGHT. ORDERS PLACED.
--- NOTE | 2019-04-02 11:58 | NUR ---
INCENTIVE SPIROMETER EFFORT NOTED AT 1500. PT STATES HE WILL USE IS AND FLUTTER QH; 10 TIMES A PIECE. NO ACUTE DISTRESS NOTED. WILL CONTINUE PLAN OF CARE.
--- NOTE | 2019-04-02 12:02 | NUR ---
PER DR ROMANO, 4 HOURS ON AND OFF BIPAP. AT BEDSIDE DURING PHYSICIAN ROUNDING, ALL QUESTIONS AND CONCERNS ADRESSED. WILL CONTINUE PLAN OF CARE.
--- NOTE | 2019-04-02 13:29 | NUR ---
BED BATH GIVEN USING HIPICLENS, TOTAL LINEN CHANGE PROVIDED. VERY SMALL BOWEL MOVEMENT/SMEAR NOTED DURING CLEAN UP, LIQUID BROWN, NOT ENOUGH FOR SPECIMEN TO BE OBTAINED; ABSORBED TO LINENS. DESTINEE CARE PROVIDED. NO ACUTE DISTRESS NOTED. WILL CONTINUE PLAN OF CARE.
--- NOTE | 2019-04-02 15:31 | NUR ---
UP IN BED WATCHING TV AT THIS TIME, AT BEDSIDE. DENIES ANY NEEDS. NO ACUTE DISTRESS NOTED. CALL LIGHT IN REACH. WILL CONTINUE PLAN OF CARE.
--- NOTE | 2019-04-02 16:58 | NUR ---
PTT 44.6, HEPARIN GTT INCREASED FROM 1000 U/H TO 1100 U/H PER PROTOCOL ORDERS. PT UP IN BED EATING SUPPER AT THIS TIME. DENIES ANY NEEDS. NO ACUTE DISTRESS NOTED. WILL CONTINUE PLAN OF CARE.
--- NOTE | 2019-04-02 17:30 | NUR ---
UP IN BED AT THIS TIME. BIPAP IN PLACE. PT WATCHING TV. VSS. NO ACUTE DISTRESS NOTED. TURNED Q2H. PT USES INCENTIVE SPIROMETER AND FLUTTER QHOUR. WILL CONTINUE PLAN OF CARE.
--- NOTE | 2019-04-02 19:15 | NUR ---
REPORT RECEIVED INITIAL ASSESSMENT COMPLETE. PT ALERT AND ORIENTED DENIES CP OR SOB ON O2 NC TO BE ON BIPAP FOR 4 HOUR AND OFF 4. O2 SAT 95%. BREATH SOUNDS REL CLEAR. ABD SOFT NONTENDER PT TO BE NPO AFTER MIDNIGHT PHYSICIANS ARE MEETING IN AM AND PT MAY HAVE PROCEDURE/SURGERY TOMORROW. PT USING URINAL WITH CLEAR YELLOW URINE NOTED. HEPARIN GTT INFUSING NEXT LEVEL TO BE DRAWN AT 2300. CM WITH ALARMS ON AND AUDIBLE. BED IN LOW POSITION SIDERAILS UP TIMES 3 FOR BED MOBILITY AND SAFETY CALL LIGHT IN REACH.
--- NOTE | 2019-04-02 22:15 | NUR ---
PT READY FOR BED TED RT PLACING ON BIPAP.
--- NOTE | 2019-04-02 23:00 | NUR ---
REASSESMENT MADE LAB DRAWING PTT FOR HEPARIN PROTOCOL. PT DENIES PAIN OR SOB CPOC
[2019-04-03] VITALS (23 sets, daily range): BP systolic 122–140; BP diastolic 66–91; Ht 167.6 cm; Wt 66.6 kg
--- NOTE | 2019-04-03 01:00 | NUR ---
PT RESTING QUIETLY WITH EYES CLOSED NO DISTRESS NOTED CPOC
--- NOTE | 2019-04-03 03:00 | NUR ---
REASSESSMENT MADE NO CHANGES SEE FLOWSHEET
--- NOTE | 2019-04-03 04:05 | NUR ---
RT DRAWING MORNING ABG PT PLACED ON NC PER TED
--- NOTE | 2019-04-03 05:50 | NUR ---
LAB HERE FOR HEPARIN PROTOCOL RECHECK
[2019-04-03 06:43] LABS: WBC 20.1 10x3/uL (4.8-10.8)
[2019-04-03 06:44] LABS: HEMATOCRIT 28.3 % (42.0-54.0); HEMOGLOBIN 9.4 g/dL (13.5-17.5); MCH 27.9 pg (26.0-34.0); MCHC 33.2 g/dL (31.0-37.0); MEAN PLATELET VOLUME 8.6 fL (7.4-10.4); PLATELET COUNT 313 10x3/uL (130-400); RBC 3.37 10x6/uL (4.20-6.10); RDW 13.5 % (11.5-14.5)
[2019-04-03 07:02] LABS: ANION GAP 13.3 mmol/L (8-16); BILIRUBIN - TOTAL 0.31 mg/dL (0.2-1.3); CALCIUM 8.1 mg/dL (8.5-10.1); CARBON DIOXIDE 23.5 mmol/L (21.0-32.0); CREATININE - SERUM 1.5 mg/dL (0.6-1.3); MAGNESIUM - SERUM 1.9 mg/dL (1.8-2.4); PHOSPHOROUS 2.6 mg/dL (2.5-4.9); POTASSIUM - SERUM 3.8 mmol/L (3.5-5.1); PROTEIN - SERUM 6.3 g/dL (6.4-8.2)
[2019-04-03 07:03] LABS: TROPONIN-I 8.7 ng/mL (0.000-0.060)
--- NOTE | 2019-04-03 07:15 | NUR ---
REPORT RECEIVED. PT ALERT AND ORIENTED. PT IS DRN. HE IS ON BIPAP AT 45% FOR 4 HOURS AT A TIME THEN OFF FOR 4 HRS AND WEARS O2 AT 4L THEN. PT IS NPO JUST IN CASE HE HAS SURGERY TODAY. MULTIPLE DOCTORS MEETING WITH PT TODAY TO DETERMINE IF PT WILL HAVE PROCEDURE. PS HAS FSBS ACHS. HE HAS IVS IN HIS RIGHT HAND AND LEFT FOREARM. HEAD TO TOE ASSESSMENT COMPLETED. VSS. WILL CONTINUE TO MONITOR. CALL LIGHT IN REACH.
[2019-04-03 07:31] LABS: LYMPHOCYTES 6 % (15-50); MONOCYTES 4 % (2-11); NEUTROPHILS 89 % (40-80)
[2019-04-03 07:34] LABS: PLATELET ESTIMATE NORMAL
--- NOTE | 2019-04-03 09:24 | NUR ---
BIPAP PLACED BACK ON PT. ON 45%. AT BEDSIDE. NO OTHER NEEDS CURRENTLY.
--- NOTE | 2019-04-03 11:50 | NUR ---
DR ROMANO ROUNDED ON PT. NO NEW ORDERS.
--- NOTE | 2019-04-03 13:35 | NUR ---
BIPAP TAKEN OFF. O2 AT 4L PUT ON.
--- NOTE | 2019-04-03 15:30 | NUR ---
PT RESTING QUIETLY. VSS. STILL NPO. WAITING ON DR CASTELLANOS TO UPDATE REGARDING REPEAT CARDIAC CATH (PER SHIFT REPORT, PER PT, AND PER DOCTORS NOTES).
--- NOTE | 2019-04-03 17:00 | NUR ---
NO UPDATE FROM DR CASTELLANOS. PT RESTING QUIETLY. VSS.
--- NOTE | 2019-04-03 18:48 | NUR ---
PT BACK ON BIPAP. AT 40%.
[2019-04-04] VITALS (24 sets, daily range): BP systolic 117–152; BP diastolic 52–107
[2019-04-04 04:36] LABS: BASOPHILS 0.1 % (0-2); EOSINOPHILS 0 % (0-7); HEMATOCRIT 27.7 % (42.0-54.0); HEMOGLOBIN 9.6 g/dL (13.5-17.5); IMMATURE GRANULOCYTES 1.3 % (0-5); LYMPHOCYTES 8.7 % (15-50); MCH 28.9 pg (26.0-34.0); MCHC 34.7 g/dL (31.0-37.0); MCV 83.4 fL (80.0-100.0); MEAN PLATELET VOLUME 8.2 fL (7.4-10.4); MONOCYTES 4.4 % (2-11); NEUTROPHILS 85.5 % (40-80); PLATELET COUNT 306 10x3/uL (130-400); RBC 3.32 10x6/uL (4.20-6.10); RDW 13.5 % (11.5-14.5); WBC 15.8 10x3/uL (4.8-10.8)
[2019-04-04 05:05] LABS: ALBUMIN 2.1 g/dL (3.4-5.0); BILIRUBIN - TOTAL 0.33 mg/dL (0.2-1.3); CALCIUM 8.2 mg/dL (8.5-10.1); CARBON DIOXIDE 24.6 mmol/L (21.0-32.0); CREATININE - SERUM 1.4 mg/dL (0.6-1.3); MAGNESIUM - SERUM 2.1 mg/dL (1.8-2.4); POTASSIUM - SERUM 3.6 mmol/L (3.5-5.1); PROTEIN - SERUM 6.3 g/dL (6.4-8.2)
--- NOTE | 2019-04-04 07:19 | NUR ---
PT RECEIVED. PT SITTING UP IN BED. WEARING O2 AT 4L. VSS. IV TO RIGHT HAND AND LEFT FOREARM. HEAD TO TOE ASSESSMENT PERFORMED. WILL CONTINUE TO MONITOR.
--- NOTE | 2019-04-04 07:40 | NUR ---
APTT IS 77.1 THIS AM. IN EMAR STATES TO LEAVE HEPARIN RATE THE SAME AND TO RECHECK IN THE AM. WILL PLACE ORDER TO CHECK 04/05 IN AM.
--- NOTE | 2019-04-04 08:39 | NUR ---
SPOKE WITH DR CASTELLANOS REGARDING PT'S CARE. NO IMMEDIATE PLANS FOR ANOTHER HEART CATHETERIZATION. STATED HE WOULD BE SPEAKING WITH DOCTOR ROSALES AND PUTTING IN A PROGRESS NOTE LATER. ORDERED BREAKFAST TRAY FOR PT.
--- NOTE | 2019-04-04 09:33 | NUR ---
MEDICATIONS GIVEN. AT BEDSIDE. VSS. UPDATED. NO NEEDS AT THIS TIME. WILL CONTINUE TO MONITOR.
--- NOTE | 2019-04-04 09:48 | NUR ---
NUTRITION F/U CHART REVIEWED. FAMILY AT BEDSIDE. NPO THIS AM FOR PROCEDURE. WILL MONITOR PT PROGRESS, PROVIDE DIET WHEN RESUMED. RD FOLLOWING
--- NOTE | 2019-04-04 11:50 | NUR ---
DR CASTELLANOS IN PT ROOM. DR DENNIS ROUNDED ON PT. DR ROMANO ROUNDED ON PT AND UPDATED. PT PLEASED. AT BEDSIDE. PLAN DISCUSSED FOR POSSIBLE SURGERY NEXT WEEK ONCE INFECTION IS CLEARED UP.
--- NOTE | 2019-04-04 13:15 | NUR ---
PT RECEIVED HCG BATH TODAY WITH ASSISTANCE FROM HIS . VSS. WILL CONTINUE TO MONITOR.
--- NOTE | 2019-04-04 15:30 | NUR ---
ON O2 AT 4L. BIPAP ONLY NEEDED NOW. NO COMPLAINTS OR NEEDS AT THIS TIME.
--- NOTE | 2019-04-04 17:45 | NUR ---
PT ATE MOST OF HIS DINNER. ZITHROMAX INFUSING. WILL HANG FERRLECIT AFTER. PT HAS NO NEEDS AT THIS TIME. VSS.
[2019-04-05] VITALS (22 sets, daily range): BP systolic 101–155; BP diastolic 71–99
[2019-04-05 04:42] LABS: BASOPHILS 0.1 % (0-2); EOSINOPHILS 0 % (0-7); HEMATOCRIT 27.3 % (42.0-54.0); HEMOGLOBIN 9.2 g/dL (13.5-17.5); IMMATURE GRANULOCYTES 1.9 % (0-5); LYMPHOCYTES 7.7 % (15-50); MCH 28.3 pg (26.0-34.0); MCHC 33.7 g/dL (31.0-37.0); MEAN PLATELET VOLUME 8.5 fL (7.4-10.4); MONOCYTES 5.8 % (2-11); NEUTROPHILS 84.5 % (40-80); PLATELET COUNT 344 10x3/uL (130-400); RBC 3.25 10x6/uL (4.20-6.10); RDW 13.5 % (11.5-14.5); WBC 14.5 10x3/uL (4.8-10.8)
[2019-04-05 05:25] LABS: ALBUMIN 2.1 g/dL (3.4-5.0); ANION GAP 11.5 mmol/L (8-16); BILIRUBIN - TOTAL 0.4 mg/dL (0.2-1.3); CARBON DIOXIDE 27.9 mmol/L (21.0-32.0); CREATININE - SERUM 1.3 mg/dL (0.6-1.3); MAGNESIUM - SERUM 2.1 mg/dL (1.8-2.4); POTASSIUM - SERUM 3.4 mmol/L (3.5-5.1)
[2019-04-05 05:26] LABS: TROPONIN-I 6.554 ng/mL (0.000-0.060)
--- NOTE | 2019-04-05 07:30 | NUR ---
REPORT RECEIVED. PT RESTING QUIETLY. IV TO RIGHT HAND AND LEFT FOREARM. SEE IV FLOWSHEET. HEAD TO TOE ASSESSMENT COMPLETED. ON O2 AT 4L. HAS NO COMPLAINTS OR NEEDS AT THIS TIME. WILL CONTINUE TO MONITOR.
--- NOTE | 2019-04-05 09:30 | NUR ---
PT RESTING QUIETLY IN BED. AM MEDS GIVEN. NO COMPLAINTS OR NEEDS AT THIS TIME. VSS.
--- NOTE | 2019-04-05 11:19 | NUR ---
PT RESTING AT THIS TIME, DENIES ANY WANTS OR NEEDS, VSS, CALL LIGHT IN REACH
--- NOTE | 2019-04-05 13:45 | NUR ---
PT'S AT BEDSIDE. NO COMPLAINTS OR NEEDS AT THIS TIME. VSS. WILL CONTINUE TO MONITOR.
--- NOTE | 2019-04-05 15:50 | NUR ---
PT RESTING QUIETLY. VSS. WILL CONTINUE TO MONITOR.
--- NOTE | 2019-04-05 18:22 | NUR ---
NITRO PASTE APPLIED TO CHEST. ZITHROMAX HANGING. ONCE DONE WILL HANG FERRLECIT. VSS. PT HAS NO COMPLAINTS OR NEEDS AT THIS TIME. WILL CONTINUE TO MONITOR.
[2019-04-06] VITALS (12 sets, daily range): BP systolic 101–148; BP diastolic 54–98
[2019-04-06 04:05] LABS: BASOPHILS 0.1 % (0-2); EOSINOPHILS 0 % (0-7); HEMATOCRIT 27.7 % (42.0-54.0); LYMPHOCYTES 8.8 % (15-50); MCH 27.4 pg (26.0-34.0); MCHC 32.5 g/dL (31.0-37.0); MCV 84.2 fL (80.0-100.0); MEAN PLATELET VOLUME 8.5 fL (7.4-10.4); MONOCYTES 5.3 % (2-11); NEUTROPHILS 81.8 % (40-80); PLATELET COUNT 335 10x3/uL (130-400); RBC 3.29 10x6/uL (4.20-6.10); RDW 13.5 % (11.5-14.5); WBC 17.2 10x3/uL (4.8-10.8)
[2019-04-06 04:47] LABS: ALBUMIN 2.2 g/dL (3.4-5.0); ANION GAP 8.7 mmol/L (8-16); BILIRUBIN - TOTAL 0.46 mg/dL (0.2-1.3); CALCIUM 8.2 mg/dL (8.5-10.1); CARBON DIOXIDE 30.5 mmol/L (21.0-32.0); CREATININE - SERUM 1.3 mg/dL (0.6-1.3); MAGNESIUM - SERUM 2.1 mg/dL (1.8-2.4); PHOSPHOROUS 2.4 mg/dL (2.5-4.9); POTASSIUM - SERUM 4.2 mmol/L (3.5-5.1)
[2019-04-06 04:48] LABS: TROPONIN-I 5.856 ng/mL (0.000-0.060)
--- NOTE | 2019-04-06 07:00 | NUR ---
REC'D EYES CLOSED, RESP UNLABORED.
--- NOTE | 2019-04-06 08:45 | NUR ---
ASSESSED, VSS. PLEASANT, DENIES ANY NEED AT THIS TIME.
--- NOTE | 2019-04-06 09:53 | NUR ---
NUTRITION F/U CHART REVIEWED. PT VISIT. REPORTS GOOD PO INTAKE DIABETIC DIET. NOTE POSSIBLE TRANSFER TO FLOOR. RD FOLLOWING
--- NOTE | 2019-04-06 11:45 | NUR ---
LUNCH SERVED, DENIES PAIN OR DISCOMFORT.
--- NOTE | 2019-04-06 19:15 | NUR ---
IS PRESENT IN ROOM PT DENIES NEEDS BED IS IN LOW POSITION AND LOCKED SR X2 IV X2 PATENT WITH HEPRIN GTT AT 4 CC/HR LUNGS ARE CLEAR AT THIS TIME BUT DEMINISHEDIN LOWER BASES
[2019-04-07] VITALS: BP 145/82
[2019-04-07 03:08] LABS: MYCOPLASMA PNEUMO IGG 128 U/mL (0-99)
[2019-04-07 04:30] VITALS: BP 136/76
--- NOTE | 2019-04-07 04:32 | NUR ---
I have reviewed this patient and I concur with the Shift Assessment completed by the Licensed Practical Nurse today this shift.
--- NOTE | 2019-04-07 08:00 | NUR ---
PT RESTING IN BED, SHIFT ASSESSMENT PERFORMED. DENIES ANY NEEDS AT THIS TIME. WILL CONT TO FOLLOW POC
[2019-04-07 08:22] LABS: BASOPHILS 0.1 % (0-2); EOSINOPHILS 0.1 % (0-7); HEMATOCRIT 28.8 % (42.0-54.0); HEMOGLOBIN 9.5 g/dL (13.5-17.5); IMMATURE GRANULOCYTES 4.3 % (0-5); LYMPHOCYTES 10.4 % (15-50); MCH 28.1 pg (26.0-34.0); MCV 85.2 fL (80.0-100.0); MEAN PLATELET VOLUME 8.6 fL (7.4-10.4); NEUTROPHILS 80.1 % (40-80); PLATELET COUNT 338 10x3/uL (130-400); RBC 3.38 10x6/uL (4.20-6.10); RDW 13.5 % (11.5-14.5); WBC 16.6 10x3/uL (4.8-10.8)
[2019-04-07 08:30] VITALS: BP 127/73
[2019-04-07 08:45] LABS: CALCIUM 8.1 mg/dL (8.5-10.1); CREATININE - SERUM 1.3 mg/dL (0.6-1.3)
[2019-04-07 09:15] LABS: FOLATE (FOLIC ACID) - SERUM 2.9 ng/mL (>3.0)
--- NOTE | 2019-04-07 10:24 | NUR ---
PTT 54.5 THIS AM, INCREASED HEPARIN TO 500U/HR AND ORDERED PTT REDRAW AT 1600 PER PROTOCOL.
--- NOTE | 2019-04-07 12:00 | NUR ---
PT SITTING IN CHAIR EATING LUNCH. DENIES ANY PAIN AT THIS TIME. WILL CONT TO FOLLOW POC
[2019-04-07 12:30] VITALS: BP 146/91
--- NOTE | 2019-04-07 13:01 | NUR ---
Zithromax stopped at 190
[2019-04-07 16:30] VITALS: BP 124/73
--- NOTE | 2019-04-07 18:39 | NUR ---
PTT 43.9, INCREASED HEPARIN BY 100U TO 600U PER HOUR AND ORDERED PTT REDRAW IN 6HRS PER PROTOCOL
--- NOTE | 2019-04-07 19:15 | NUR ---
AWAKE AND ALERT IV TO RT HAND IS PATENT WILL LOOK FROADITIONAL ACCESS LATER DENIES NEEDS OR PAIN ED IS LOW AND LOCKED IS PRESENT AND CALL LIGHT IS IN REACH
[2019-04-07 20:08] VITALS: BP 139/87
--- NOTE | 2019-04-07 21:04 | NUR ---
I have reviewed this patient and I concur with the Shift Assessment completed by the Licensed Practical Nurse today this shift.
--- NOTE | 2019-04-07 21:57 | NUR ---
RESTARTED IV TO LEFT FOREARM WITH 22 GAUGE FLUSHED AND APPLIED OPSITE AND SECURED WITH TAPE WE STARTED FLUIDS TKO
[2019-04-08 00:45] VITALS: BP 129/74
--- NOTE | 2019-04-08 01:55 | NUR ---
ADJUSTED HEPRIN GTT UP 100U/HR AND REDRAW APTT AT 8AM
[2019-04-08 03:49] VITALS: BP 119/69
--- NOTE | 2019-04-08 07:19 | NUR ---
REPORT RECEIVED. WILL CONTINUE WITH POC. PT CURRENTLY LYING SEMI FOWLERS. CALL LIGHT W/I REACH. PT IS AAO AND UP AD SAVANA. RR EVEN AND UNLABORED ON 5L HIGH FLOW NC. HEPARIN INFUSING @7ML/HR VIA R.HAND AND L.FOR PIV HAS NS INFUSING @KVO. NO S/S OF DISTRESS NOTED. PT DENIES ANY NEEDS AT THIS TIME. WILL CTM.
[2019-04-08 08:31] VITALS: BP 137/71
--- NOTE | 2019-04-08 10:18 | NUR ---
RECEIVED NEW APTT @0900 WHICH WAS 55.2. INCREASED HEPARIN DOSE BY 100UNITS/HR WHICH IS NOW 800UNITS/HR OR 8ML/HR. WILL CTM.
[2019-04-08 11:30] VITALS: BP 122/71
--- NOTE | 2019-04-08 13:02 | NUR ---
APTT LAB DRAW REORDERED FOR 1700. WILL CTM.
--- NOTE | 2019-04-08 13:45 | NUR ---
ONE TIME DOSE PLAVIX ADMINISTERED. WILL STOP HEPARIN DRIP ONE HOUR POST PLAVIX ADMINISTRATION. PT DENIES ANY NEEDS. WILL CTM.
--- NOTE | 2019-04-08 14:10 | NUR ---
I have reviewed this patient and I concur with the Shift Assessment completed by the Licensed Practical Nurse today this shift.
[2019-04-08 16:34] VITALS: BP 135/81
--- NOTE | 2019-04-08 19:30 | NUR ---
RECEIVED REPORT, WILL ASSUME CARE OF PT, PT IS SLEEPING AT THIS TIME, BED IS LOW, SRX2, CALL LIGHT IN REACH, WILL CONTINUE PLAN OF CARE
[2019-04-08 20:14] VITALS: BP 114/69
[2019-04-09 03:49] VITALS: BP 126/70
--- NOTE | 2019-04-09 04:00 | NUR ---
I have reviewed this patient and I concur with the Shift Assessment completed by the Licensed Practical Nurse today this shift.
[2019-04-09 10:00] VITALS: BP 123/70
--- NOTE | 2019-04-09 17:00 | NUR ---
ALERT AND ORIENTED X4. SITTING UP IN BED. SPOUSE AT BEDSIDE. EXPRESSES WANTING TO GO HOME. DENIES PAIN. SOB TREATED WITH OXYGEN THERAPY AND ANTIBIOTICS. SINUS RHYTHM 62 ON TELEMETRY. DENIES ANY NEEDS. CONTINUE PLAN OF CARE AND SAFETY PRECAUTIONS.
[2019-04-09 17:14] VITALS: BP 121/68
[2019-04-09 19:55] VITALS: BP 114/63
[2019-04-10 03:43] VITALS: BP 121/64
--- NOTE | 2019-04-10 04:08 | NUR ---
I have reviewed this patient and I concur with the Shift Assessment completed by the Licensed Practical Nurse today this shift.
--- NOTE | 2019-04-10 07:08 | NUR ---
REPORT RECEIVED. WILL CONTINUE WITH POC. PT CURRENTLY LYING SEMI FOWLERS. CALL LIGHT W/I REACH. PT IS AAO AND UP AD SAVANA. RR EVEN AND UNLABORED ON 5L HIGH FLOW NC. NS INFUSING @KVO VIA L.FOR PIV. NO S/S OF DISTRESS NOTED. PT DENIES ANY NEEDS AT THIS TIME.
[2019-04-10 07:38] VITALS: BP 126/73
--- NOTE | 2019-04-10 10:09 | NUR ---
I have reviewed this patient and I concur with the Shift Assessment completed by the Licensed Practical Nurse today this shift.
[2019-04-10 11:56] VITALS: BP 116/72
[2019-04-10 12:07] LABS: IMMUNOGLOBULIN E 30 IU/mL (6-495)
[2019-04-10 13:09] LABS: HEMATOCRIT 31.6 % (42.0-54.0); HEMOGLOBIN 10.8 g/dL (13.5-17.5); MCH 28.8 pg (26.0-34.0); MCHC 34.2 g/dL (31.0-37.0); MCV 84.3 fL (80.0-100.0); MEAN PLATELET VOLUME 9.1 fL (7.4-10.4); PLATELET COUNT 232 10x3/uL (130-400); RBC 3.75 10x6/uL (4.20-6.10); RDW 13.6 % (11.5-14.5); WBC 29.9 10x3/uL (4.8-10.8)
[2019-04-10 13:19] LABS: CALCIUM 8.3 mg/dL (8.5-10.1); CREATININE - SERUM 1.6 mg/dL (0.6-1.3)
[2019-04-10 13:29] LABS: EOSINOPHILS 1 % (0-7); LYMPHOCYTES 7 % (15-50); MONOCYTES 5 % (2-11); NEUTROPHILS 85 % (40-80); PLATELET ESTIMATE NORMAL
[2019-04-10 16:14] VITALS: BP 121/72
--- NOTE | 2019-04-10 19:02 | NUR ---
AWKE AND ALERT WITH BED LOW AND LOCKED SRX2 AND CALL LIGHT IN REACH. LCTA AND SKIN WARM AND DRY IV X2 IS SALINE LOCKED. QUESTIONS ANSWERED AND EFFORTS MADE TO PROVIDE COMFORT
[2019-04-10 20:00] VITALS: BP 125/71
[2019-04-11] VITALS: BP 147/77
[2019-04-11 04:00] VITALS: BP 125/67
[2019-04-11 06:26] LABS: CALCIUM 8.4 mg/dL (8.5-10.1); CARBON DIOXIDE 31.6 mmol/L (21.0-32.0); CREATININE - SERUM 1.5 mg/dL (0.6-1.3); POTASSIUM - SERUM 3.6 mmol/L (3.5-5.1)
[2019-04-11 07:06] LABS: BASOPHILS 0.2 % (0-2); EOSINOPHILS 3.9 % (0-7); HEMOGLOBIN 10.6 g/dL (13.5-17.5); IMMATURE GRANULOCYTES 2.3 % (0-5); LYMPHOCYTES 10.7 % (15-50); MCH 28.3 pg (26.0-34.0); MCHC 33.1 g/dL (31.0-37.0); MCV 85.6 fL (80.0-100.0); MEAN PLATELET VOLUME 9.7 fL (7.4-10.4); MONOCYTES 4.3 % (2-11); NEUTROPHILS 78.6 % (40-80); PLATELET COUNT 250 10x3/uL (130-400); RBC 3.74 10x6/uL (4.20-6.10); RDW 13.9 % (11.5-14.5); WBC 25.3 10x3/uL (4.8-10.8)
[2019-04-11 07:54] VITALS: BP 110/71
--- NOTE | 2019-04-11 10:52 | NUR ---
TAKEN TO PROCEDURE VIA BED. CONTINUE PLAN OF CARE AND SAFETY PRECAUTIONS.
--- NOTE | 2019-04-11 11:44 | NUR ---
1143 O2 3L NC TO ROOM
--- NOTE | 2019-04-11 11:54 | NUR ---
ARRIVE BACK TO ROOM VIA BED FROM BRONCHOSCOPY. HOB ELEVATED 90 DEGREES. BP-113/62, HR-78, O2 SAT 92 WITH 7L HFNC. REMAIN NPO FOR NEXT 3 HOURS. CONTINUE PLAN OF CARE AND SAFETY PRECAUTIONS.
[2019-04-11] MEDS ORDERED: METOPROLOL TART50 MG PO (13:46)
[2019-04-11] MEDS ORDERED: TESSALON PERLE100 MG PO (13:47)
[2019-04-11] MEDS ORDERED: MUCINEX DM ER1 EAC1 PO (13:47)
[2019-04-11] MEDS ORDERED: PLAVIX75 MG PO (13:48)
[2019-04-11] MEDS ORDERED: PREDNISONE10 MG PO (13:52)
[2019-04-11] MEDS ORDERED: ALBUTEROL SULF8.5 GM INH (15:48)
--- NOTE | 2019-04-11 16:06 | MORECARE ---
CASE MANAGEMENT DISCHARGE SUMMARY PATIENT: JETT MARIE UNIT: [id number] ADM DATE: 03/30/19 AGE: 69 : 48 SEX: M ROOM/BED: D.2953 AUTHOR: JENNIFER CLARK PHYSICIAN: REFERRING PHYSICIAN: SAM HINTON MD DATE OF SERVICE: 04/11/19 Discharge Plan Patient Name: JETT MARIE Facility: [facility]:[place] : 1950 Planned Disposition: Home Anticipated Discharge Date: 04/11/19 Discharge Date: Expected LOS: 12 Initial Reviewer: [email or web address] Initial Review Date: 03/30/2019 Generated: 04/11/19 5:06 pm DCP- Discharge Planning Updated by [email or web address]: Melody Vázquez on 03/30/19 5:[address] Patient Name: JETT MARIE Admission Status: ER Accout number: [id number] Admission Date: 03-30-2019 : 1950 Admission Diagnosis: Attending: CINDI HINTON Current LOS: 1 Anticipated DC Date: 04-01-2019 Planned Disposition: Home with independently. Denied dc needs at this time. Primary Insurance: MEDICARE A & B Discharge Planning Comments: CM met with patient and his , Marina Marie, to complete initial dc planning assessment. CM educated patient on the CM role and verbal consent given by patient to complete assessment. CM verified patient's address, phone number, and emergency contact phone numbers. Patient lives at home independently with his . At discharge patient plans to return home with his and feels this is a safe discharge. CM discussed availability of home health, rehab services, and medical equipment. Patient denied known discharge needs at this time. Patient reports his will transport him home at time of discharge. CM will continue to follow and will assist as needed with dc plans/needs. Shank Sorter: Melody Vázquez RN, [facility] DCPIA - Discharge Planning Initial Assessment Updated by [email or web address]: Melody Vázquez on 03/30/19 6:20 pm * Is the patient Alert and Oriented? Yes * How many steps to enter\exit or inside your home? * PCP Dr. Marcelino * Pharmacy [facility] * Preadmission Environment Home with Family * ADLs Independent * Equipment Glucometer * Other Equipment tries to check his sugar everyday. * List name and contact numbers for known caregivers / representatives who currently or will assist patient after discharge: Marina Marie - - [phone] * Verbal permission to speak to the caregivers and representatives has been obtained from the patient. Yes * Community resources currently utilized None * Additional services required to return to the preadmission environment? No * Can the patient safely return to the preadmission environment? Yes * Has this patient been hospitalized within the prior 30 days at any hospital? No External Providers External Provider: [facility] Next Contact Date: 04/11/2019 Service Request Date: Service Type: Resolution: Reviewer: Comments: Coverage Notice Reviewer: [email or web address] Enriquez Notice Issued Date-Time: 04/11/2019 15:40 Notice Type: IM Discharge Notice Notice Delivered To: Patient Relationship to Patient: Funeral Planner Name: Delivery Method: - Marianna Days: Prior Verbal Notification: Recipient Understood Notice: Yes Recipient Signature: Yes Med Rec Note Co-signed by Attending: Coverage Notice Comment: Reviewer: NICKI Enriquez Notice Issued Date-Time: 04/11/2019 15:40 Notice Type: Patient Choice Letter Notice Delivered To: Patient Relationship to Patient: Funeral Planner Name: Delivery Method: HAND - Hand Delivered Marianna Days: Prior Verbal Notification: Recipient Understood Notice: Yes Recipient Signature: Yes Med Rec Note Co-signed by Attending: Coverage Notice Comment: NAIDAMay Last DP export: 03/30/19 5:28 p Patient Name: JETT MARIE Page [phone] at 1606 All edits/amendments must be made on the electronic document DICTATION DATE: 04/11/19 1606 FLOATER OPERATOR: TAMIKO 04/11/19 1606 RPT#: [id number] DC DATE: STATUS: ADM IN [facility] [address] [place] [address] END OF REPORT
[2019-04-11 16:08] LABS: ANA REFLEX - DIRECT QNS (())
--- NOTE | 2019-04-11 16:15 | MORECARE ---
CASE MANAGEMENT DISCHARGE SUMMARY PATIENT: JETT MARIE UNIT: [id number] ADM DATE: 03/30/19 AGE: 69 : 48 SEX: M ROOM/BED: D.7238 AUTHOR: JENNIFER CLARK PHYSICIAN: REFERRING PHYSICIAN: SAM HINTON MD DATE OF SERVICE: 04/11/19 Discharge Plan Patient Name: JETT MARIE Facility: [facility]:[place] : 1950 Planned Disposition: Home Anticipated Discharge Date: 04/11/19 Discharge Date: Expected LOS: 12 Initial Reviewer: [email or web address] Initial Review Date: 03/30/2019 Generated: 04/11/19 5:14 pm Comments DCP- Discharge Planning Updated by [email or web address]: Timothy Enriquez on 04/11/19 3:[address] Patient Name: JETT MARIE Encounter No: [id number] : 1950 Primary Insurance: MEDICARE A & B Anticipated DC Date: 04-11-2019 Planned Disposition: Home DCP follow-up note: CM RECEIVED OXYGEN ORDER. CM MET WITH PT IN ROOM TO DISCUSS DISCHARGE NEEDS AND PLANNING. CM DISCUSSED AVAILABILITY OF HOME HEALTH, REHAB SERVICES AND MEDICAL EQUIPMENT. PROVIDER LISTING FOR MEDICAL EQUIPMENT GIVEN, [facility] PT DENIES FURTHER DISCHARGE NEEDS. SPOUSE TO TRANSPORT HOME AT DISCHARGE. IMPORTANT MESSAGE FROM MEDICARE PROVIDED AND EXPLAINED. CM CALLED [facility], , SPOKE TO MARTÍN WHO TOOK OXYGEN ORDER. CM FAXED OXYGEN ORDER TO [facility] AT [phone]. [facility] TO ARRANGE PORTABLE OXYGEN TO HOPITAL ROOM AND HOME OXYGEN FOR HOME DELIVERY AFTER PT ARRIVES HOME TODAY. PRESSER HAND NURSE NOTIFIED. Timothy Enriquez, CASE MANAGEMENT DCP- Discharge Planning Updated by [id number]: Melody Vázquez on 03/30/19 5:[address] Patient Name: JETT MARIE Admission Status: ER Accout number: [id number] Admission Date: 03-30-2019 : 1950 Admission Diagnosis: Attending: CINDI HINTON Current LOS: 1 Anticipated DC Date: 04-01-2019 Planned Disposition: Home with independently. Denied dc needs at this time. Primary Insurance: MEDICARE A & B Discharge Planning Comments: CM met with patient and his , Marina Marie, to complete initial dc planning assessment. CM educated patient on the CM role and verbal consent given by patient to complete assessment. CM verified patient's address, phone number, and emergency contact phone numbers. Patient lives at home independently with his . At discharge patient plans to return home with his and feels this is a safe discharge. CM discussed availability of home health, rehab services, and medical equipment. Patient denied known discharge needs at this time. Patient reports his will transport him home at time of discharge. CM will continue to follow and will assist as needed with dc plans/needs. Dry Starch Supervisor: Melody Vázquez RN, [facility] DCPIA - Discharge Planning Initial Assessment Updated by [id number]: Melody Vázquez on 03/30/19 6:20 pm * Is the patient Alert and Oriented? Yes * How many steps to enter\exit or inside your home? * PCP Dr. Marcelino * [place] [facility] [place] * P[place] Environment Home with Family * ADLs Independent * Equipment Glucometer * Other Equipment tries to check his sugar everyday. * List name and contact numbers for known caregivers / representatives who currently or will assist patient after discharge: Marina Marie - - [phone] * Verbal permission to speak to the caregivers and representatives has been obtained from the patient. Yes * Community resources currently utilized None * Additional services required to return to the preadmission environment? No * Can the patient safely return to the preadmission environment? Yes * Has this patient been hospitalized within the prior 30 days at any hospital? No Coverage Notice Reviewer: [email or web address] Rosalba Enriquez Notice Issued Date-Time: 04/11/2019 15:40 Notice Type: IM Discharge Notice Notice Delivered To: Patient Relationship to Patient: Console Assembler Name: Delivery Method: - Marianna Days: Prior Verbal Notification: Recipient Understood Notice: Yes Recipient Signature: Yes Med Rec Note Co-signed by Attending: Coverage Notice Comment: Reviewer: [email or web address] Rosalba Enriquez Notice Issued Date-Time: 04/11/2019 15:40 Notice Type: Patient Choice Letter Notice Delivered To: Patient Relationship to Patient: Console Assembler Name: Delivery Method: HAND - Hand Delivered Marianna Days: Prior Verbal Notification: Recipient Understood Notice: Yes Recipient Signature: Yes Med Rec Note Co-signed by Attending: Coverage Notice Comment: [email or web address] Elizondo DP export: 04/11/19 3:06 p Patient Name: JETT MARIE Page [phone] at 1615 All edits/amendments must be made on the electronic document DICTATION DATE: 04/11/191613 BEREAVEMENT COORDINATOR: TAMIKO 04/11/191613 RPT#: [id number] DC DATE: STATUS: ADM IN [facility] [address] [place] [address] END OF REPORT
[2019-04-11 17:02] VITALS: BP 126/68
--- NOTE | 2019-04-11 17:03 | NUR ---
ALERT AND ORIENTED X4. SITTING UP IN BED. SPOUSE AT BEDSIDE. TOLERATES LIQUIDS. DC RT HAND IV TIP INTACT. DC LT FA IV TIP INTACT. DISCHARGE INSTRUCTIONS GIVEN VERBALLY AND WRITTEN. DISCHARGE PAPERS SIGNED ON CHART. WAITING FOR PORTABLE OXYGEN TO BE DELIVERED. DENIES ANY NEEDS AT THIS TIME. CONTINUE PLAN OF CARE AND SAFETY PRECAUTIONS.
--- NOTE | 2019-04-11 18:37 | NUR ---
CALLED [facility]ISE EQUIPMENT SPECIALIST REGARDING PORTABLE OXYGEN FOR DISCHARGE. AWAITING CALL BACK FROM TECH.
--- NOTE | 2019-04-11 19:29 | NUR ---
PT WAS ALREADY SIGNED OUT FOR DC....I MADE SURE HE HAD O2 AT 4L AND TOOK TO VEHICLE VIA WC
[2019-04-13 17:08] LABS: ANCA - ANTIMYELOPEROXIDASE <9.0 U/mL (0.0-9.0); ANCA - ANTIPROTEINASE 3 <3.5 U/mL (0.0-3.5); ANCA - ATYPICAL <1:20 titer (Neg:<1:20); ANCA - CYTOPLASMIC <1:20 titer (Neg:<1:20); ANCA - PERINUCLEAR <1:20 titer (Neg:<1:20)
[2019-04-13 19:08] LABS: ACID FAST SMEAR Negative (()); AFB SPECIMEN PROCESSING Concentration (())
[2019-04-13 20:06] LABS: ANA REFLEX - DIRECT Negative (Negative)
== END 2019-04-11 19:30 | disposition home or self-care (01) | DRG 871 ==
LOC: D.ER 16:14 → D.ICU 18:10 → D.M2 18:10 → D.ICU 04-01 23:10 → D.M2 04-06 17:04 → D.SDCHOLD 04-11 09:27 → D.M2 04-11 09:30
PROVIDERS: Emergency Medicine; Family Medicine; Internal Medicine Cardiovascular Disease; Internal Medicine Pulmonary Disease; ADMIT Emergency Medicine; ATTEND Emergency Medicine
PROC: B2151ZZ Fluoroscopy of Left Heart using Low Osmolar Contrast (ICD-10-PCS; 2019-03-31)
PROC: B3101ZZ Fluoroscopy of Thoracic Aorta using Low Osmolar Contrast (ICD-10-PCS; 2019-03-31)
PROC: 4A023N7 Measurement of Cardiac Sampling and Pressure, Left Heart, Percutaneous Approach (ICD-10-PCS; 2019-03-31)
PROC: B2111ZZ Fluoroscopy of Multiple Coronary Arteries using Low Osmolar Contrast (ICD-10-PCS; principal; 2019-03-31 11:10)
PROC: 5A09357 Assistance with Respiratory Ventilation, Less than 24 Consecutive Hours, Continuous Positive Airway Pressure (ICD-10-PCS; 2019-04-01)
PROC: 0B9F7ZX Drainage of Right Lower Lung Lobe, Via Natural or Artificial Opening, Diagnostic (ICD-10-PCS; 2019-04-11)
PROC: 0B9D7ZX Drainage of Right Middle Lung Lobe, Via Natural or Artificial Opening, Diagnostic (ICD-10-PCS; 2019-04-11)
DX: A41.9 Sepsis, unspecified organism (principal); I21.4 Non-ST elevation (NSTEMI) myocardial infarction; J96.01 Acute respiratory failure with hypoxia; J15.6 Pneumonia due to other Gram-negative bacteria; J13 Pneumonia due to Streptococcus pneumoniae; E87.1 Hypo-osmolality and hyponatremia; I24.8 Other forms of acute ischemic heart disease; J44.0 Chronic obstructive pulmonary disease with (acute) lower respiratory infection; I13.0 Hypertensive heart and chronic kidney disease with heart failure and stage 1 through stage 4 chronic kidney disease, or unspecified chronic kidney disease; N17.9 Acute kidney failure, unspecified; J81.1 Chronic pulmonary edema; R00.0 Tachycardia, unspecified; E86.0 Dehydration; E78.5 Hyperlipidemia, unspecified; M32.9 Systemic lupus erythematosus, unspecified; E03.9 Hypothyroidism, unspecified; E55.9 Vitamin D deficiency, unspecified; J32.0 Chronic maxillary sinusitis; I25.10 Atherosclerotic heart disease of native coronary artery without angina pectoris; E11.40 Type 2 diabetes mellitus with diabetic neuropathy, unspecified; E11.22 Type 2 diabetes mellitus with diabetic chronic kidney disease; N18.9 Chronic kidney disease, unspecified; I50.9 Heart failure, unspecified; E11.65 Type 2 diabetes mellitus with hyperglycemia; R91.8 Other nonspecific abnormal finding of lung field; D89.9 Disorder involving the immune mechanism, unspecified; D50.9 Iron deficiency anemia, unspecified; R05 Cough

== ENCOUNTER → 2019-05-01 15:38 | Outpatient (CLI) | payer MEDICARE, BC ==
[2019-04-03 09:15] VITALS: BMI 26.9
[~2019-05-01 15:38] MED LIST changes: +ALBUTEROL SULF8.5 GM INH; +ARAVA10 MG PO; +BAYER CHEWABLE81 MG PO; +COZAAR50 MG PO; +GLUCOPHAGE500 MG PO; +LIPITOR20 MG PO; +METOPROLOL TART50 MG PO; +MUCINEX DM ER1 EAC1 PO; +PLAVIX75 MG PO; +PREDNISONE10 MG PO; +TESSALON PERLE100 MG PO; +ZANAFLEX2 M1 PO; +[UNRECOGNIZED DRUG - OTHER]
== END | disposition home or self-care (01) ==
LOC: D.RAD 15:38
PROVIDERS: ATTEND Thoracic Surgery (Cardiothoracic Vascular Surgery)
DX: Z01.812 Encounter for preprocedural laboratory examination (principal)

== ENCOUNTER 2019-05-03 16:29 | Inpatient (IN) | payer MEDICARE, BC ==
[~2019-05-03] VITALS: Ht 167.6 cm; Wt 69.6 kg
[~2019-05-03 16:29] MED LIST changes: -ARAVA10 MG PO; -ZANAFLEX2 M1 PO
[2019-05-04] MEDS ORDERED: COZAAR50 MG PO (15:03)
[2019-05-04] MEDS ORDERED: ARAVA10 MG PO (15:04)
[2019-05-04] MEDS ORDERED: ZANAFLEX2 M1 PO (15:04)
[2019-05-04 16:52] LABS: APPEARANCE CLEAR (CLEAR); BASOPHILS 0.5 % (0-2); BILIRUBIN NEGATIVE (NEGATIVE); COLOR STRAW (YELLOW); EOSINOPHILS 8.6 % (0-7); GLUCOSE NEGATIVE (NEGATIVE); HEMATOCRIT 34.3 % (42.0-54.0); HEMOGLOBIN 11.8 g/dL (13.5-17.5); IMMATURE GRANULOCYTES 1.8 % (0-5); KETONE NEGATIVE (NEGATIVE); LYMPHOCYTES 34.7 % (15-50); MCH 29.2 pg (26.0-34.0); MCHC 34.4 g/dL (31.0-37.0); MCV 84.9 fL (80.0-100.0); MEAN PLATELET VOLUME 8.1 fL (7.4-10.4); MONOCYTES 9.4 % (2-11); NITRITE NEGATIVE (NEGATIVE); PLATELET COUNT 278 10x3/uL (130-400); PROTEIN NEGATIVE (NEGATIVE); RBC 4.04 10x6/uL (4.20-6.10); RDW 15.1 % (11.5-14.5); SPECIFIC GRAVITY 1.015 (1.005-1.020); UROBILINOGEN NORMAL (NORMAL); WBC 9.5 10x3/uL (4.8-10.8)
[2019-05-04 17:02] LABS: APTT 33.1 SECONDS (22.8-39.4); PROTIME 12.7 SECONDS (11.6-15.0)
[2019-05-04 17:15] LABS: ALBUMIN 3.1 g/dL (3.4-5.0); ANION GAP 13.6 mmol/L (8-16); BILIRUBIN - TOTAL 0.25 mg/dL (0.2-1.3); CALCIUM 9.2 mg/dL (8.5-10.1); CARBON DIOXIDE 24.4 mmol/L (21.0-32.0); CREATININE - SERUM 1.5 mg/dL (0.6-1.3); PHOSPHOROUS 3.1 mg/dL (2.5-4.9); PROTEIN - SERUM 8.2 g/dL (6.4-8.2); T4 THYROXIN - FREE 0.42 ng/dL (0.76-1.46); THYROID STIMULATING HORMONE 34.26 uIU/mL (0.36-3.74); URIC ACID 4.1 mg/dL (2.6-7.2)
[2019-05-09] VITALS (57 sets, daily range): BP systolic 16–178; BP diastolic 44–86; BMI 25.2; BMI 25.7
[2019-05-09 06:45] LABS: ANION GAP 10.2 mmol/L (8-16); CALCIUM 8.8 mg/dL (8.5-10.1); CARBON DIOXIDE 27.6 mmol/L (21.0-32.0); CREATININE - SERUM 1.6 mg/dL (0.6-1.3); POTASSIUM - SERUM 4.8 mmol/L (3.5-5.1)
--- NOTE | 2019-05-09 16:16 | NUR ---
PT ARRIVED TO ROOM FROM O.R. AT 1405. PLACED ON BEDSIDE MONITORING. HAS RIGHT JUGULAR CENTRAL LINE. RIGHT RADIAL ART LINE. DRESSING AND WRAP NOTED TO RIGHT LEG. MIDSTERNAL DRESSING C,D,I. SUBSTERNAL DRESSING C,D,I COVERING CHEST TUBE X3 AND LEFT OSMANI. BLOODY DRAINAGE NOTED. TPM WIRE COILED AND SECURED. PT INTUBATED WITH 8.0 ETT AND SITS AT 23CM AT THE LIP. CHEST TUBES TO WALL SUCTION, NO AIR LEAK NOTED. ADAMS CATHETER WITH STAT-LOCK. LEFT LEG WITH ISMA AND SCD. PALPABLE PEDAL PULSE BILATERAL. VENESSA HAS BEEN IN TO SEE PATIENT AND SPOKE WITH DR ROSALES. VSS. PT STARTING TO WAKE.
--- NOTE | 2019-05-09 16:40 | NUR ---
TELEPHONE ORDER FOR AIR OVERLAY FOR PT. REQUESTED A SPECIAL MATRESS FOR HIM BC LAST HOSPITALIZATION DEVELOPED PRESSURE SORES.
--- NOTE | 2019-05-09 16:51 | NUR ---
INSULIN GTT STARTED FOR GLUCOSE OF 235. BOLUS OF 2 UNITS GIVEN AND RATE OF 1 UNIT/HR INFUSION.
--- NOTE | 2019-05-09 16:58 | NUR ---
GLUCOSE RECHECKED AFTER INSULIN BOLUS AND GTT INITIATED. READING EVEN HIGHER. RECHECKED ON OPOSITE HAND, READING 30 POINTS LOWER THAN ONE MINUTE PRIOR. WILL RECHECK WITH DIFFERENT GLUCOMETER.
--- NOTE | 2019-05-09 19:16 | NUR ---
REPORT RECEIVED, SHIFT ASSESSMENT COMPLETED PER FLOW SHEET. PATIENT ON VENT VIA ETT, ON CPAP AT THIS TIME. FOLLOWING COMMANDS. INFORMED BY DAY SHIFT RN THAT DR. ROSALES IS AWARE OF BP CUFF AND VINICIUS BP READING DIFFERENCES, PER DR. ROSALES TITRATE DRIPS ACCORDING TO VINICIUS BP, BP PARAMETERS 90-140. ADAMS CATHETER TO GRAVITY SECURED. CVP AND VINICIUS ZEROED AND LEVELED WITH GOOD WAVEFORM. SEE FLOW SHEET FOR COMPLETE ASSESSMENT. WILL CONTINUE TO MONITOR.
--- NOTE | 2019-05-09 19:22 | NUR ---
CALLED AND UPDATED DR ROSALES OF PT ABG RESULTS. ASKED NOT TO TREAT BASE EXCESS. TITRATE PRESSORS BASED ON ART LINE VALUES. KEEP BP CUFF AT LEFT ARM. WANTS NITRO MAX RATE OF 10ML/HR FOR THIS PATIENT. NOTIFIED THAT PT IS IN PROCESS OF WEANING FROM VENT AND IS ON SPONTANEOUS SETTING. ALSO NOTIFIED OF STARTING PT INSULIN GTT.
--- NOTE | 2019-05-09 20:00 | NUR ---
PATIENT FOLLOWING COMMANDS, AWAKE AND ALERT, RT AT BEDSIDE, EXTUBATED PER RT TO 4 L NC. ORAL CARE AND SUCTION PROVIDED. PATIENT DENIES NEEDS. REPOSITIONED IN BED. WILL CONTINUE TO MONITOR.
--- NOTE | 2019-05-09 20:52 | NUR ---
VENESSA CALLED, SECURITY CALL CODE OBTAINED, UPDATE GIVEN ON PATIENT'S CURRENT STATUS. STATES SHE WILL "TRY TO BE UP THERE IN THE MORNING."
--- NOTE | 2019-05-09 22:00 | NUR ---
TOLERATING SMALL SIPS OF WATER, NO DIFFICULTY SWALLOWING, DENIES NAUSEA, NO VOMITING. WILL CONTINUE TO MONITOR. CALL LIGHT WITHIN REACH.
--- NOTE | 2019-05-09 23:00 | NUR ---
REASSESSMENT COMPLETED PER FLOW SHEET, SEE FOR DETAILS. NO ACUTE DISTRESS NOTED. ICE CHIPS PROVIDED PER PATIENT'S REQUEST. REPOSITIONED IN BED. DENIES OTHER NEEDS. CALL LIGHT WITHIN REACH.
--- NOTE | 2019-05-09 23:18 | NUR ---
C/O PAIN, PRN PERCOCET GIVEN, SEE EMAR FOR DETAILS. WATER PROVIDED. DENIES OTHER NEEDS. CALL LIGHT WITHIN REACH.
[2019-05-10] VITALS (55 sets, daily range): BP systolic 99–155; BP diastolic 44–84; Ht 167.6 cm; Wt 69.6 kg
--- NOTE | 2019-05-10 01:00 | NUR ---
RESTING, NO ACUTE DISTRESS NOTED, DENIES NEEDS. WILL CONTINUE TO MONITOR.
--- NOTE | 2019-05-10 03:00 | NUR ---
REASSESSMENT COMPLETED PER FLOW SHEET, SEE FOR DETAILS. NO ACUTE DISTRESS NOTED, DENIES NEEDS. CALL LIGHT WITHIN REACH. WILL CONTINUE TO MONITOR.
--- NOTE | 2019-05-10 04:00 | NUR ---
COMPLETE BED BATH GIVEN, COMPLETE BED LINEN CHANGE PROVIDED, ADAMS CARE PROVIDED. SUBSTERNAL DRESSING CHANGED, CT SUTURES INTACT, TPM WIRES INTACT. RT IJ CVL DRESSING CHANGED.
--- NOTE | 2019-05-10 06:17 | NUR ---
ASSISSTED PATIENT OOB TO CHAIR, X2 RN ASSISST. TOLERATED WELL. CALL LIGHT WITHIN REACH. DENIES NEEDS. WILL CONTINUE OT MONITOR.
[2019-05-10 06:24] LABS: BASOPHILS 0.4 % (0-2); EOSINOPHILS 0.2 % (0-7); HEMATOCRIT 30.7 % (42.0-54.0); HEMOGLOBIN 10.5 g/dL (13.5-17.5); LYMPHOCYTES 9.5 % (15-50); MCH 29.5 pg (26.0-34.0); MCHC 34.2 g/dL (31.0-37.0); MCV 86.2 fL (80.0-100.0); MEAN PLATELET VOLUME 8.4 fL (7.4-10.4); MONOCYTES 7.6 % (2-11); NEUTROPHILS 81.3 % (40-80); RBC 3.56 10x6/uL (4.20-6.10); RDW 15.5 % (11.5-14.5); WBC 16.8 10x3/uL (4.8-10.8)
[2019-05-10 06:31] LABS: PLATELET COUNT 184 10x3/uL (130-400)
[2019-05-10 06:37] LABS: ALBUMIN 2.7 g/dL (3.4-5.0); ANION GAP 16.9 mmol/L (8-16); BILIRUBIN - TOTAL 0.23 mg/dL (0.2-1.3); CALCIUM 8.2 mg/dL (8.5-10.1); CARBON DIOXIDE 22.5 mmol/L (21.0-32.0); CREATININE - SERUM 1.8 mg/dL (0.6-1.3); MAGNESIUM - SERUM 1.7 mg/dL (1.8-2.4); PHOSPHOROUS 3.7 mg/dL (2.5-4.9); POTASSIUM - SERUM 5.4 mmol/L (3.5-5.1)
--- NOTE | 2019-05-10 07:22 | NUR ---
REPORT RECEIVED. SHIFT ASSESSMENT COMPLETE. PT UP IN CHAIR AT BEDSIDE AT THIS TIME. BREATHING TREATMENT IN PROGRESS. SMALL AIR LEAK NOTED IN CHEST TUBE. OSMANI DRAIN COMPRESSED; BLOODY DRAINAGE. PT STATES PAIN LEVEL AT THIS TIME IS "3". CALL LIGHT IN REACH. SUCTION IN REACH.
--- NOTE | 2019-05-10 08:20 | NUR ---
DR ROSALES BY AND SAW PATIENT. NEW ORDER RECEIVED TO REMOVE ART LINE AND ADAMS.
--- NOTE | 2019-05-10 09:28 | NUR ---
RIGHT RADIAL ART LINE REMOVED, TIP INTACT. NO BLEEDING. MORNING MEDICATIONS HAVE BEEN ADMINISTERED, PT HAD NO DIFFICULTY. ADAMS CATHETER REMOVED, TIP INTACT. URINAL PROVIDED.
--- NOTE | 2019-05-10 10:00 | TEE ---
PATIENT:JETT LIMA MEDICAL RECORD: [id number] LOCATION:[place] [address] AGE OF PATIENT: 69 ADMISSION DATE: 05/09/19 SEX: M REFERRING PHYSICIAN: INTERPRETING PHYSICIAN: LOLLY NORRIS MD TRANSESOPHAGEAL ECHOCARDIOGRAM Date: 05/09/19 KENJI CHARGE Y INDICATIONS: CABG PREMEDICATIONS: PATIENT'S RESPONSE PROCEDURE DOPPLER MEASUREMENTS: LVIT LA 3.3 PA RA LVOT RVOT Asc. Ao AV Gradient Peak AV Mean AV Area 2.0 MV Gradient Peak MV Mean MV Area INTERPRETATION: Doppler: 2-D: COLOR FLOW DOPPLER NORMAL SALINE STUDY: MISCELLANOUS: DIAGNOSIS: PLAN: Deputy Sheriff:2 Dr. Noriega Quality Process Auditor: Rian HARRINGTON COMMENTS: BOBBY PATIENT DATE OF SERVICE: 05/09/2019 PROCEDURE: Transesophageal echo evaluation of valvular structures during bypass surgery. FINDINGS: 1. Left ventricular chamber size is within normal limits. Left ventricular systolic function is normal. Overall ejection fraction estimated at 60%. 2. Left atrium, right atrium, and right ventricle chamber sizes are within TRANSESOPHAGEAL ECHOCARDIOGRAM REPORT [id number] MILDRED LIMA normal limits. 3. Valvular structures: Aortic valve demonstrates calcific aortic sclerosis, but there is no aortic stenosis, valve area calculates 2.1 cm-squared. The remaining valvular structures have normal structure and motion. 4. Doppler interrogation elsewise reveals mild mitral regurgitation, no other valvular insufficiency or stenosis. 5. No evidence of pericardial effusion or left ventricular thrombus. TRANSINT:[id number] Voice Confirmation ID: [id number] DOCUMENT ID: [id number] at 1000 CC: [id number] DICTATION DATE: 05/09/19 1552 RECORDS AND TAPE RECORDINGS ENGINEER: 05/10/19 0741 ADM IN [facility] [address] [place] [id number]
--- NOTE | 2019-05-10 11:28 | OP ---
PATIENT NAME: JETT LIMA MEDICAL RECORD: [id number] :46 LOCATION:[facility].[place] DM[facility] Carmen[facility]07 ADMISSION DATE:05/09/19 SURGEON: AYAAN ROSALES MD DATE OF OPERATION: 05/09/2019 SURGEON: Ayaan Rosales MD JUNIOR SYSTEMS ENGINEER: Cody Gutierrez OPERATIONS PERFORMED: 1. Coronary artery bypass graft times 4 (left internal mammary artery to LAD, reverse saphenous vein graft from aorta to first diagonal, aorta to obtuse marginal, aorta to right coronary artery). 2. Endoscopic saphenous vein harvest. PREOPERATIVE DIAGNOSES: Subacute myocardial infarction, congenitally abnormal coronary artery anomalies, multivessel coronary disease. POSTOPERATIVE DIAGNOSES: Subacute myocardial infarction, congenitally abnormal coronary artery anomalies, multivessel coronary disease. ANESTHESIA: General endotracheal anesthesia. ESTIMATED BLOOD LOSS: Total cardiopulmonary bypass with Cell Saver transfusion and 3 units of packed red blood cells. COMPLICATIONS: None. SPECIMENS: None. CONDITION: Stable. DISPOSITION: ICU. OPERATIVE FINDINGS: 1. Transesophageal echocardiography revealed sclerotic aortic valve, but no significant aortic stenosis, good contractility. 2. Greater saphenous vein harvested in the right thigh endoscopically with 2 bridging incisions for large side branches and then the varicose portion of the vein below the knee was harvested open with 3 bridging incisions to obtain a small portion of vein for the right coronary bypass. 3. Good quality left internal mammary artery. 4. The heart was significantly rotated to the right. 5. LAD arose from the right coronary and was 1.5 with severe disease. 6. High diagonal was a circumflex branch and was 1.5 mm. 7. Largest obtuse marginal 1.5 mm. 8. Right coronary artery gave a large acute marginal branch that crossed the inferior wall of the right coronary to supply the distal septum, was 1.5 mm. OPERATIVE INDICATION: Multivessel coronary artery disease, not amenable to percutaneous coronary intervention; and recent respiratory failure, requiring ventilator. OPERATIVE PROCEDURE IN DETAIL: The patient was brought to the operating suite. General anesthesia was obtained. The patient was prepped and draped. Greater OPERATIVE REPORT [id number] JETT LIMA saphenous vein was harvested from the right lower extremity with findings as above. Endoscopically, from the right thigh, side branches were divided with electrocautery and then open incisions. Eventually, vessel ligated proximally and distally and removed. Side branches were tied and thin sites were oversewn. Later, the leg was closed in 2 layers. Median sternotomy incision was made. Subcutaneous tissue was divided by electrocautery. Sternum was divided with a saw. Left hemisternum was elevated. Left pleural cavity was entered. Left internal mammary artery and vein was taken down as a pedicle graft. Sternal retractor was placed. Pericardium was opened. Heparin was given. Aorta was cannulated. Dual stage venous cannula was inserted. The patient was hypotensive and placed on cardiopulmonary bypass. Internal mammary was clipped distally and radially for anastomosis. Sites for distal anastomoses were selected. Antegrade cardioplegic cannula was inserted. The patient's temperature was allowed to drift downwardly to 34 degrees. Cross-clamp was placed. Cardioplegia was given antegrade and this was repeated at 15- to 20-minute intervals including down the completed vein grafts. Distal anastomosis was performed in standard technique and proximal anastomosis utilizing a single cross-clamp technique. Cross-clamp removed. Aortic root de-aired and proximal anastomosis was tied down. Vein graft was de-aired and flow was restored. Proximal and distal anastomotic sites were inspected for bleeding. A single 6-0 was placed in the proximal for hemostasis. The patient resumed a spontaneous rhythm, fully rewarmed, weaned from cardiopulmonary bypass, and was stable. The patient was decannulated. Cannulation sites and aorta were oversewn with a pledgeted Prolene. Thorough irrigation was undertaken. Grafts lay appropriately. Hemostasis was ensured. Protamine was given. Drains were placed in mediastinum and left pleural cavity. Ventricular pacing wires were placed. Pericardial fat was loosely reapproximated in the midline. Left chest was evacuated and irrigated. Internal mammary harvest site was inspected for bleeding. Sternum was closed with wires. Fascia was closed. Subcutaneous tissue was closed. Skin was closed. Dermabond was placed. Needle and sponge counts were correct. The patient was taken to ICU in stable condition. TRANSINT:[id number] Voice Confirmation ID: [id number] DOCUMENT ID: [id number] AYAAN ROSALES MD at 1128 CC: SILVA CASTELLANOS M.D. and RIC VILLAREAL [id number] DICTATION DATE: 05/09/191458 IRRIGATION TECHNICIAN: 05/09/19 175 ADM IN [facility] [address] [place] [address]
--- NOTE | 2019-05-10 12:53 | NUR ---
PT AIR OVERLAY PLACED ON BED. PT ASSISTED FROM CHAIR TO BED. SOB NOTED. RECOVERED WITHIN 2 MINUTES. AT BEDSIDE. LUNCH TRAY OFFERED, PT DECLINES. NOT WANTING ANY FOOD JUST YET.
--- NOTE | 2019-05-10 14:55 | NUR ---
PT RESTING QUIETLY, WATCHING TELEVISION. NO DISTRESS NOTED. VSS. CALL LIGHT IN REACH.
--- NOTE | 2019-05-10 16:13 | NUR ---
DR ROSALES AT BEDSIDE. CHEST TUBES REMOVED. SITES CLEANED WITH IODINE SWABS AND COVERED WITH BETADINE OINTMENT, GAUZE AND TEGADERM. PT REPOSITIONED FOR COMFORT. NOW AT BEDSIDE.
--- NOTE | 2019-05-10 17:00 | MORECARE ---
CASE MANAGEMENT DISCHARGE SUMMARY PATIENT: JETT LIMA UNIT: [id number] ADM DATE: 05/09/19 AGE: 69 : 48 SEX: M [facility] AUTHOR: JENNIFER CLARK PHYSICIAN: REFERRING PHYSICIAN: ISABELLA ROSALES MD DATE OF SERVICE: 05/10/19 Discharge Plan Patient Name: JETT LIMA Facility: [facility]:[place] : 1950 Planned Disposition: Home with Home Health Anticipated Discharge Date: Discharge Date: Expected LOS: Initial Reviewer: [email or web address] Initial Review Date: 05/10/2019 Generated: 05/10/19 6:00 pm DCPIA - Discharge Planning Initial Assessment Updated by [email or web address]: Krystina Romero on 05/10/19 4:58 pm * Is the patient Alert and Oriented? Yes * How many steps to enter\exit or inside your home? * PCP [facility] * Pharmacy [facility] * Preadmission Environment Home with Family * ADLs Independent * Other Equipment HOME 02 & PORTABLE * List name and contact numbers for known caregivers / representatives who currently or will assist patient after discharge: VENESSA LIMA - SPOUSE - [phone] * Verbal permission to speak to the caregivers and representatives has been obtained from the patient. N/A * Community resources currently utilized Home Health * Please name any agencies selected above. PATIENT RECALL WHICH AGENCY WILL GET WITH TO FIND OUT * Additional services required to return to the preadmission environment? No * Can the patient safely return to the preadmission environment? Yes * Has this patient been hospitalized within the prior 30 days at any hospital? No Patient Name: JETT LIMA Page [id number] at 1700 All edits/amendments must be made on the electronic document DICTATION DATE: 05/10/191699 INSULATION MANAGER: TAMIKO 05/10/191699 RPT#: [id number] DC DATE: STATUS: ADM IN [facility] [address] [place] [address] END OF REPORT
--- NOTE | 2019-05-10 17:09 | MORECARE ---
CASE MANAGEMENT DISCHARGE SUMMARY PATIENT: JETT LIMA UNIT: [id number] ADM DATE: 05/09/19 AGE: 69 : 48 SEX: M [facility] AUTHOR: EDUARDO,DOC PHYSICIAN: REFERRING PHYSICIAN: ISABELLA ROSALES MD DATE OF SERVICE: 05/10/19 Discharge Plan Patient Name: JETT LIMA Facility: [facility]:[place] : 1950 Planned Disposition: Home with Home Health Anticipated Discharge Date: Discharge Date: Expected LOS: Initial Reviewer: [email or web address] Initial Review Date: 05/10/2019 Generated: 05/10/19 6:09 pm Comments DCP- Discharge Planning Updated by [email or web address]: Krystina Romero on 05/10/19 4:[address] Patient Name: JETT LIMA Admission Status: Elective Accout number: [id number] Admission Date: 05-09-2019 : 1950 Admission Diagnosis: Attending: ISABELLA ROSALES Current LOS: 1 Anticipated DC Date: Planned Disposition: Home with Home Health Primary Insurance: MEDICARE A & B Discharge Planning Comments: CM met with patient at bedside after explaining CM role and obtaining verbal consent. Patient lives at home with his Marina and plans to return there upon discharge. Patient feels this would be a safe discharge. Patient states he has home 02 and portable 02. Patient states that he has Home Health but can't recall which agency. CM will speak with to find out agency. Patient denies any discharge needs at this time. Patient states he will have his drive him home upon discharge. CM will continue to follow and assist as needed with discharge planning / needs. Fisheries Officer: Krystina Romero DCPIA - Discharge Planning Initial Assessment Updated by [email or web address]: Krystina Romero on 05/10/19 4:58 pm * Is the patient Alert and Oriented? Yes * How many steps to enter\exit or inside your home? * PCP [facility] * Pharmacy [facility] * Preadmission Environment Home with Family * ADLs Independent * Other Equipment HOME 02 & PORTABLE * List name and contact numbers for known caregivers / representatives who currently or will assist patient after discharge: MARINA LIMA - SPOUSE - [phone] * Verbal permission to speak to the caregivers and representatives has been obtained from the patient. N/A * Community resources currently utilized Home Health * Please name any agencies selected above. PATIENT RECALL WHICH AGENCY WILL GET WITH TO FIND OUT * Additional services required to return to the preadmission environment? No * Can the patient safely return to the preadmission environment? Yes * Has this patient been hospitalized within the prior 30 days at any hospital? No Last DP export: 05/10/19 4:00 p Patient Name: JETT LIMA Page [id number] at 1709 All edits/amendments must be made on the electronic document DICTATION DATE: 05/10/191708 DIRECTOR OF EVENT SALES: TAMIKO 05/10/191708 RPT#: [id number] DC DATE: STATUS: ADM IN [facility] [address] [place] [address] END OF REPORT
--- NOTE | 2019-05-10 19:40 | NUR ---
REPORT RECEIVED, SHIFT ASSESSMENT COMPLETED PER FLOW SHEET. AAOX4. PPP. COUGH/DEEP BREATHING AND USE OF IS ENCOURAGED. LT SUBSTERNAL CT TO OSMANI DRAIN COMPRESSED WITH BLOODY OUTPUT. DENIES NEEDS. SEE FLOW SHEET FOR COMPLETE ASSESSMENT. WILL CONTINUE TO MONITOR.
--- NOTE | 2019-05-10 19:50 | NUR ---
RT LEG COBAN DRESSING REMOVED, X5 INCISION SITES NOTED, DRY AND WELL APPROXIMATED.
--- NOTE | 2019-05-10 21:45 | NUR ---
AWAKE IN BED WATCHING TV, SCHEDULED MEDS GIVEN, WATER PROVIDED. COUGH/DEEP BREATHING ENCOURAGED, COUGH STRONG, NO SPUTUM NOTED AT THIS TIME. DENIES NEEDS. CALL LIGHT WITHIN REACH. WILL CONTINUE TO MONITOR.
--- NOTE | 2019-05-10 23:01 | NUR ---
REASSESSMENT COMPLETED PER FLOW SHEET, SEE FOR DETAILS. PATIENT COUGHING CONSISTENTLY AT THIS TIME AND O2 SAT DROPPING TO 88, INSTRUCTED HIM TO TAKE SLOW DEEP BREATHS, O2 SAT UP TO 89-90%, O2 INCREASED TO 3 L NC. O2 SAT RISING UP TO 92-94%. WILL CONTINUE TO MONITOR. DENIES NEEDS. CALL LIGHT WITHIN REACH.
[2019-05-11] VITALS (26 sets, daily range): BP systolic 93–154; BP diastolic 60–92
--- NOTE | 2019-05-11 01:00 | NUR ---
RESTING, NO ACUTE DISTRESS NOTED, WILL CONTINUE TO MONITOR.
--- NOTE | 2019-05-11 03:14 | NUR ---
REASSESSMENT COMPLETED PER FLOW SHEET, SEE FOR DETAILS. DENIES NEEDS AT THIS TIME. CALL LIGHT WITHIN REACH. WILL CONTINUE TO MONITOR.
--- NOTE | 2019-05-11 05:00 | NUR ---
RESTING, DENIES NEEDS AT THIS TIME. CALL LIGHT WITHIN REACH. WILL CONTINUE TO MONITOR.
--- NOTE | 2019-05-11 06:00 | NUR ---
COMPLETE BED BATH GIVEN, ASSISSTED OOB TO CHAIR, TOLERATED WELL . CALL LIGHT WITHIN REACH. WILL CONTINUE TO MONITOR.
[2019-05-11 06:30] LABS: BASOPHILS 0.3 % (0-2); EOSINOPHILS 2.9 % (0-7); HEMATOCRIT 32.1 % (42.0-54.0); HEMOGLOBIN 10.9 g/dL (13.5-17.5); IMMATURE GRANULOCYTES 0.6 % (0-5); LYMPHOCYTES 11.5 % (15-50); MCH 29.6 pg (26.0-34.0); MCV 87.2 fL (80.0-100.0); MEAN PLATELET VOLUME 8.4 fL (7.4-10.4); MONOCYTES 7.2 % (2-11); NEUTROPHILS 77.5 % (40-80); PLATELET COUNT 189 10x3/uL (130-400); RBC 3.68 10x6/uL (4.20-6.10); WBC 17.3 10x3/uL (4.8-10.8)
[2019-05-11 06:50] LABS: ALBUMIN 2.4 g/dL (3.4-5.0); ANION GAP 13.3 mmol/L (8-16); BILIRUBIN - TOTAL 0.47 mg/dL (0.2-1.3); CALCIUM 8.1 mg/dL (8.5-10.1); CARBON DIOXIDE 25.9 mmol/L (21.0-32.0); CREATININE - SERUM 1.6 mg/dL (0.6-1.3); MAGNESIUM - SERUM 1.8 mg/dL (1.8-2.4); PHOSPHOROUS 3.1 mg/dL (2.5-4.9); POTASSIUM - SERUM 5.2 mmol/L (3.5-5.1); PROTEIN - SERUM 6.1 g/dL (6.4-8.2)
--- NOTE | 2019-05-11 08:40 | NUR ---
DR ROSALES CAME BY AND SAW PATIENT. HR 112. ASKED IF BETA WILLIAM GIVEN. MORNING DOSE HAD. NEW ORDER FOR METOPROLOL 12.5 NOW AND CHANGE EXISTING ORDER TO 25MG BID.
--- NOTE | 2019-05-11 11:27 | NUR ---
DR ROMANO BY TO SEE PATIENT.
--- NOTE | 2019-05-11 12:40 | NUR ---
PT ASSISTED FROM CHAIR TO BED TO TAKE A NAP.
--- NOTE | 2019-05-11 12:56 | NUR ---
PHYSICAL THERAPY AT BEDSIDE FOR EVALUATION.
--- NOTE | 2019-05-11 13:09 | NUR ---
PT RETURNED TO BED. PLACED ON BEDSIDE MONITORING. CURRENTLY AT BEDSIDE.
--- NOTE | 2019-05-11 14:41 | MORECARE ---
CASE MANAGEMENT DISCHARGE SUMMARY PATIENT: JETT LIMA UNIT: [id number] ADM DATE: 05/09/19 AGE: 69 : 48 SEX: M [facility]ED: [facility] AUTHOR: EDUARDO,DOC PHYSICIAN: REFERRING PHYSICIAN: ISABELLA ROSALES MD DATE OF SERVICE: 05/11/19 Discharge Plan Patient Name: JETT LIMA Facility: [facility]:[place] : 1950 Planned Disposition: Home with Home Health Anticipated Discharge Date: Discharge Date: Expected LOS: Initial Reviewer: [email or web address] Initial Review Date: 05/10/2019 Generated: 05/11/19 3:40 pm Comments DCP- Discharge Planning Updated by [email or web address]: Krystina Romero on 05/11/19 1:[address] CM spoke with patient's Marina and she stated that patient was receiving Home Health services with [facility] and plans to resume care with them upon discharge. CM will continue to follow and assist as needed with discharge planning / needs. DCP- Discharge Planning Updated by [email or web address]: Krystina Romero on 05/10/19 4:[address] Patient Name: JETT LIMA Admission Status: Elective Accout number: [id number] Admission Date: 05-09-2019 : 1950 Admission Diagnosis: Attending: ISABELLA ROSALES Current LOS: 1 Anticipated DC Date: Planned Disposition: Home with Home Health Primary Insurance: MEDICARE A & B Discharge Planning Comments: CM met with patient at bedside after explaining CM role and obtaining verbal consent. Patient lives at home with his Marina and plans to return there upon discharge. Patient feels this would be a safe discharge. Patient states he has home 02 and portable 02. Patient states that he has Home Health but can't recall which agency. CM will speak with to find out agency. Patient denies any discharge needs at this time. Patient states he will have his drive him home upon discharge. CM will continue to follow and assist as needed with discharge planning / needs. Maternity Nurse: Krystina Romero DCPIA - Discharge Planning Initial Assessment Updated by [email or web address]: Krystina Romero on 05/10/19 4:58 pm * Is the patient Alert and Oriented? Yes * How many steps to enter\exit or inside your home? * PCP [facility] * Pharmacy [facility] * Preadmission Environment Home with Family * ADLs Independent * Other Equipment HOME 02 & PORTABLE * List name and contact numbers for known caregivers / representatives who currently or will assist patient after discharge: MARINA LIMA - SPOUSE - [phone] * Verbal permission to speak to the caregivers and representatives has been obtained from the patient. N/A * Community resources currently utilized Home Health * Please name any agencies selected above. PATIENT RECALL WHICH AGENCY WILL GET WITH TO FIND OUT * Additional services required to return to the preadmission environment? No * Can the patient safely return to the preadmission environment? Yes * Has this patient been hospitalized within the prior 30 days at any hospital? No Last DP export: 05/10/19 4:09 p Patient Name: JETT LIMA Page [id number] at 1441 All edits/amendments must be made on the electronic document DICTATION DATE: 05/11/19 1440 AIRFIELD OPERATIONS SPECIALIST: TAMIKO 05/11/19 1440 RPT#: [id number] DC DATE: STATUS: ADM IN [facility] [address] [place] [address] END OF REPORT
--- NOTE | 2019-05-11 17:29 | NUR ---
SPOKE WITH DR ROSALES. OKAY TO CHANGE FSBS TO 2X DAILY. MORNING LABS CAN COUNT ONE OF THEM -WILL NEED TO BE MORE FREQUENT IF VALUES BECOME OUT OF RANGE AND PT REQUIRES SLIDING SCALE.
--- NOTE | 2019-05-11 17:53 | NUR ---
PT ASSISTED TO STAND ON FLOOR SCALE TO GET PROPER DEMAR. BED WAS NOT ZEROED YESTERDAY AFTER AIR OVERLAY PLACED AND PRIOR TO PT RETIRING TO BED. BED NOW ZEROED.
--- NOTE | 2019-05-11 18:43 | NUR ---
PT HAD URINARY ACCIDENT, GIVEN CHG BATH, DRESSINGS CHANGED. ALL NEW LINENS.
--- NOTE | 2019-05-11 19:00 | NUR ---
SHIFT ASSESSMENT COMPLETED PER FLOW SHEET WITH NO ACUTE DISTRESS OBSERVED. MONITORS CONNECTED TO PATIENT WITH ALARMS SET. VSS. CALL LIGHT IN REACH AND ABLE TO UTILIZE TO MAKE NEEDS KNOWN
--- NOTE | 2019-05-11 21:00 | NUR ---
AWAKE AND ALERT. VSS
--- NOTE | 2019-05-11 23:00 | NUR ---
REASSESSMENT COMPLETED PER FLOW SHEET WITH NO ACUTE DISTRESS OBSERVED. VSS
[2019-05-12] VITALS (24 sets, daily range): BP systolic 95–142; BP diastolic 54–82
--- NOTE | 2019-05-12 01:00 | NUR ---
VSS. RESTING WITH EYES CLOSED
--- NOTE | 2019-05-12 05:00 | NUR ---
AWAKE AND ALERT. UP IN BEDSIDE CHAIR. VSS
[2019-05-12 05:52] LABS: BASOPHILS 0.3 % (0-2); EOSINOPHILS 2.6 % (0-7); HEMATOCRIT 30.3 % (42.0-54.0); HEMOGLOBIN 10.5 g/dL (13.5-17.5); IMMATURE GRANULOCYTES 0.9 % (0-5); LYMPHOCYTES 15.8 % (15-50); MCH 29.8 pg (26.0-34.0); MCHC 34.7 g/dL (31.0-37.0); MCV 86.1 fL (80.0-100.0); MEAN PLATELET VOLUME 8.2 fL (7.4-10.4); MONOCYTES 7.7 % (2-11); NEUTROPHILS 72.7 % (40-80); PLATELET COUNT 188 10x3/uL (130-400); RBC 3.52 10x6/uL (4.20-6.10); RDW 15.8 % (11.5-14.5); WBC 15.9 10x3/uL (4.8-10.8)
[2019-05-12 06:22] LABS: ALBUMIN 2.3 g/dL (3.4-5.0); ANION GAP 8.4 mmol/L (8-16); BILIRUBIN - TOTAL 0.54 mg/dL (0.2-1.3); CALCIUM 8.4 mg/dL (8.5-10.1); CARBON DIOXIDE 29.5 mmol/L (21.0-32.0); CREATININE - SERUM 1.4 mg/dL (0.6-1.3); POTASSIUM - SERUM 4.9 mmol/L (3.5-5.1); PROTEIN - SERUM 6.3 g/dL (6.4-8.2)
--- NOTE | 2019-05-12 09:28 | NUR ---
Nutrition follow-up: POD 3 Diet: Clear liquids Labs reviewed Wt: 158# RDN following pts diet advancement
--- NOTE | 2019-05-12 16:03 | NUR ---
1545: IV STARTED IN L FOREARM WITH 20G ON 1ST ATTEMPT. R IJ DC'D. MANUAL PRESSURE HELD X 2 MIN. DRESSED WITH 2X2 AND TEGADERM.
--- NOTE | 2019-05-12 21:00 | NUR ---
1900 REPORT RECEIVED CARE ASSUMED ASSESSMENT DONE SEE FLOW SHEET. VSS. 2100 MEDS GIVEN PER MAR VSS NO SIGNS OF ACUTE DISTRESS NOTED WILL CONTINUE TO MONITOR.
--- NOTE | 2019-05-12 23:00 | NUR ---
REASSESSMENT DONE SEE FLOW SHEET VSS. PT ATTEMPTED TO HAVE BM ONLY GAS.
[2019-05-13] VITALS (24 sets, daily range): BP systolic 83–138; BP diastolic 51–80
--- NOTE | 2019-05-13 02:48 | NUR ---
0100 WATER PROVIDED PER PT REQUEST. VSS. 0248 REASSESSMENT DONE SEE FLOW SHEET VSS.
--- NOTE | 2019-05-13 05:00 | NUR ---
IO COLLECTED DAILY WEIGHT COLLECTED VSS WILL CONTINUE TO MONITOR.
[2019-05-13 06:17] LABS: HEMATOCRIT 31.2 % (42.0-54.0); HEMOGLOBIN 10.5 g/dL (13.5-17.5); MCH 29.6 pg (26.0-34.0); MCHC 33.7 g/dL (31.0-37.0); MCV 87.9 fL (80.0-100.0); MEAN PLATELET VOLUME 8.6 fL (7.4-10.4); RBC 3.55 10x6/uL (4.20-6.10); RDW 15.8 % (11.5-14.5); WBC 14.7 10x3/uL (4.8-10.8)
[2019-05-13 06:40] LABS: ALBUMIN 2.3 g/dL (3.4-5.0); ANION GAP 9.8 mmol/L (8-16); BILIRUBIN - TOTAL 0.48 mg/dL (0.2-1.3); CARBON DIOXIDE 29.7 mmol/L (21.0-32.0); CREATININE - SERUM 1.6 mg/dL (0.6-1.3); POTASSIUM - SERUM 4.5 mmol/L (3.5-5.1); PROTEIN - SERUM 6.5 g/dL (6.4-8.2)
--- NOTE | 2019-05-13 21:00 | NUR ---
1900 REPORT RECEIVED CARE ASSUMED ASSESSMENT DONE SEE FLOW SHEET VSS. 2100 MEDS GIVEN PER MAR VSS WILL CONTINUE TO MONITOR.
--- NOTE | 2019-05-13 23:00 | NUR ---
REASSESSMENT DONE SEE FLOW SHEET VSS.
[2019-05-14] VITALS (24 sets, daily range): BP systolic 91–154; BP diastolic 55–92
--- NOTE | 2019-05-14 02:54 | NUR ---
0100 WATER PROVIDED PER PT REQUEST WILL CONTINUE TO MONITOR. 0254 REASSESSMENT COMPLETE SEE FLOW SHEET VSS.
--- NOTE | 2019-05-14 05:00 | NUR ---
IO COLLECTED DAILY WEIGHT COLLECTED VSS WILL CONTINUE TO MONITOR.
[2019-05-14 05:46] LABS: HEMATOCRIT 31.9 % (42.0-54.0); HEMOGLOBIN 10.6 g/dL (13.5-17.5); MCH 29.1 pg (26.0-34.0); MCHC 33.2 g/dL (31.0-37.0); MCV 87.6 fL (80.0-100.0); MEAN PLATELET VOLUME 8.4 fL (7.4-10.4); RBC 3.64 10x6/uL (4.20-6.10); RDW 15.6 % (11.5-14.5); WBC 12.8 10x3/uL (4.8-10.8)
[2019-05-14 06:00] LABS: ALBUMIN 2.2 g/dL (3.4-5.0); BILIRUBIN - TOTAL 0.47 mg/dL (0.2-1.3); CALCIUM 8.6 mg/dL (8.5-10.1); CARBON DIOXIDE 29.4 mmol/L (21.0-32.0); CREATININE - SERUM 1.7 mg/dL (0.6-1.3); POTASSIUM - SERUM 4.4 mmol/L (3.5-5.1); PROTEIN - SERUM 6.4 g/dL (6.4-8.2)
--- NOTE | 2019-05-14 19:28 | NUR ---
BEDSIDE SHIFT REPORT GIVEN BY DEPARTING RN . PT LAYING IN BED WATCHING TV. AAOX4. PERRLA. DENIES ANY PAIN OR NEEDS AT THIS TIME. 2L NC WITH O2 SAT 99%. ASSESSMENT COMPLETE. SEE FLOWSHEET FOR DETAILS. SAFETY MEASURES IN PLACE. CBIR.
--- NOTE | 2019-05-14 23:36 | NUR ---
REASSESSMENT COMPLETE. NO CHANGES NOTED IN PT CONDITION. VSS, DENIES ANY PAIN OR NEEDS AT THIS TIME. SAFETY MEASURES IN PLACE. CBIR.
[2019-05-15] VITALS (11 sets, daily range): BP systolic 112–149; BP diastolic 55–81
--- NOTE | 2019-05-15 01:15 | NUR ---
CALLED NURSE TO ROOM VIA CALL LIGHT. ONE BM NOTED. TOLERATED WELL. STANDBY ASSIST NEEDED. VSS.
--- NOTE | 2019-05-15 03:23 | NUR ---
REASSESSMENT COMPLETE. NO CHANGES NOTED IN PT CONDITION. VSS. DENIES ANY PAIN. SHOWING NO SS OF DISTRESS. SAFETY MEASURES IN PLACE. CBIR.
[2019-05-15 07:00] LABS: HEMATOCRIT 32.6 % (42.0-54.0); MCH 29.7 pg (26.0-34.0); MCHC 33.7 g/dL (31.0-37.0); MCV 88.1 fL (80.0-100.0); MEAN PLATELET VOLUME 8.2 fL (7.4-10.4); RBC 3.7 10x6/uL (4.20-6.10); RDW 15.7 % (11.5-14.5); WBC 12.8 10x3/uL (4.8-10.8)
[2019-05-15 07:08] LABS: ALBUMIN 2.4 g/dL (3.4-5.0); ANION GAP 8.1 mmol/L (8-16); BILIRUBIN - TOTAL 0.52 mg/dL (0.2-1.3); CALCIUM 8.9 mg/dL (8.5-10.1); CARBON DIOXIDE 33.6 mmol/L (21.0-32.0); CREATININE - SERUM 1.8 mg/dL (0.6-1.3); POTASSIUM - SERUM 4.7 mmol/L (3.5-5.1); PROTEIN - SERUM 6.8 g/dL (6.4-8.2)
--- NOTE | 2019-05-15 07:40 | NUR ---
ORAL CARE DONE WITH PERIDEX
[2019-05-15] MEDS ORDERED: LOPRESSOR25 MG PO (08:17)
[2019-05-15] MEDS ORDERED: AMIODARONE HCL200 MG PO (08:17)
[2019-05-15] MEDS ORDERED: ASPIRIN EC81 M1 PO (08:18)
[2019-05-15] MEDS ORDERED: COLACE100 MG PO (08:20)
[2019-05-15] MEDS ORDERED: Senokot-S Tablet PO (08:20)
[2019-05-15] MEDS ORDERED: SYNTHROID125 MCG PO (08:21)
[2019-05-15] MEDS ORDERED: PERCOCET 5-3251 TAB PO (08:22)
--- NOTE | 2019-05-15 09:44 | NUR ---
0700 RECEIVED IN BED. VSS. 2 L NC. L FOREARM IV SALINE LOCKED. INCISIONS CDI. ASSISTED PT TO CHAIR.
--- NOTE | 2019-05-15 10:18 | NUR ---
1000 D/C TEACHING COMPLETE. NO QUESTIONS. PERIPHERAL IV REMOVED. BROUGHT HOME O2.
--- NOTE | 2019-05-15 10:29 | NUR ---
ASSISTED TO THE CAR WITHOUT DIFFICULTIES.
--- NOTE | 2019-05-15 16:14 | MORECARE ---
CASE MANAGEMENT DISCHARGE SUMMARY PATIENT: JETT LIMA UNIT: [id number] ADM DATE: 05/09/19 AGE: 69 : 48 SEX: M ROOM/BED: D[facility] AUTHOR: EDUARDO,DOC PHYSICIAN: REFERRING PHYSICIAN: ISABELLA ROSALES MD DATE OF SERVICE: 05/15/19 Discharge Plan Patient Name: JETT LIMA Facility: [facility]:[place] : 1950 Planned Disposition: Home with Home Health Anticipated Discharge Date: Discharge Date: 05/15/2019 Expected LOS: Initial Reviewer: [id number] Initial Review Date: 05/10/2019 Generated: 05/15/19 5:13 pm Comments DCP- Discharge Planning Updated by [email or web address]: Krystina Romero on 05/11/19 1:[address] CM spoke with patient's Marina and she stated that patient was receiving Home Health services with [facility] and plans to resume care with them upon discharge. CM will continue to follow and assist as needed with discharge planning / needs. DCP- Discharge Planning Updated by [email or web address]: Krystina Romero on 05/10/19 4:[address] Patient Name: JETT LIMA Admission Status: Elective Accout number: [id number] Admission Date: 05-09-2019 : 1950 Admission Diagnosis: Attending: ISABELLA ROSALES Current LOS: 1 Anticipated DC Date: Planned Disposition: Home with Home Health Primary Insurance: MEDICARE A & B Discharge Planning Comments: CM met with patient at bedside after explaining CM role and obtaining verbal consent. Patient lives at home with his Marina and plans to return there upon discharge. Patient feels this would be a safe discharge. Patient states he has home 02 and portable 02. Patient states that he has Home Health but can't recall which agency. CM will speak with to find out agency. Patient denies any discharge needs at this time. Patient states he will have his drive him home upon discharge. CM will continue to follow and assist as needed with discharge planning / needs. Licensed Esthetician: Krystina Romero DCPIA - Discharge Planning Initial Assessment Updated by [id number]: Krystina Romero on 05/10/19 4:58 pm * Is the patient Alert and Oriented? Yes * How many steps to enter\exit or inside your home? * PCP [facility] * Pharmacy [facility] * Preadmission Environment Home with Family * ADLs Independent * Other Equipment HOME 02 & PORTABLE * List name and contact numbers for known caregivers / representatives who currently or will assist patient after discharge: MARINA LIMA - SPOUSE - [phone] * Verbal permission to speak to the caregivers and representatives has been obtained from the patient. N/A * Community resources currently utilized Home Health * Please name any agencies selected above. PATIENT RECALL WHICH AGENCY WILL GET WITH TO FIND OUT * Additional services required to return to the preadmission environment? No * Can the patient safely return to the preadmission environment? Yes * Has this patient been hospitalized within the prior 30 days at any hospital? No Coverage Notice Reviewer: [id number] - Krystina Romero Notice Issued Date-Time: 05/15/2019 9:42 Notice Type: IM Discharge Notice Notice Delivered To: Family Member Relationship to Patient: Spouse Tune Up Mechanic Name: JAMES LIMA Delivery Method: HAND - Hand Delivered [place] Days: Prior Verbal Notification: Recipient Understood Notice: Yes Recipient Signature: Yes Med Rec Note Co-signed by Attending: Coverage Notice Comment: Last DP export: 05/11/19 1:40 p Patient Name: JETT LIMA Page [id number] at 1614 All edits/amendments must be made on the electronic document DICTATION DATE: 05/15/191612 SENIOR CONTROLS TECHNICIAN: TAMIKO 05/15/191612 RPT#: [id number] DC DATE:05/15/19 STATUS: DIS IN [facility] [address] [place] [address] END OF REPORT
--- NOTE | 2019-05-15 16:26 | MORECARE ---
CASE MANAGEMENT DISCHARGE SUMMARY PATIENT: JETT LIMA UNIT: [id number] ADM DATE: 05/09/19 AGE: 69 : 48 SEX: M [facility] AUTHOR: JENNIFER CLARK PHYSICIAN: REFERRING PHYSICIAN: ISABELLA ROSALES MD DATE OF SERVICE: 05/15/19 Discharge Plan Patient Name: JETT LIMA Facility: [facility]:[place] : 1950 Planned Disposition: Home with Home Health Anticipated Discharge Date: Discharge Date: 05/15/2019 Expected LOS: Initial Reviewer: [id number] Initial Review Date: 05/10/2019 Generated: 05/15/19 5:25 pm Comments DCP- Discharge Planning Updated by [email or web address]: Krystina Romero on 05/15/19 3:[address] Patient Name: JETT LIMA Encounter No: [id number] : 1950 Primary Insurance: MEDICARE A & B Anticipated DC Date: Planned Disposition: Home with Home Health External Planned Provider: : [facility] D/C RECORDS SENT - D/C IMM EXPLAINED AND SIGNED 05/15/19 @ 0942 DCP follow-up note: Patient and family in agreement with discharge plan. No changes to plan. Case management will follow and assist as needed. Krystina Romero DCP- Discharge Planning Updated by [id number]: Krystina Romero on 05/11/19 1:[address] CM spoke with patient's Marina and she stated that patient was receiving Home Health services with [facility] and plans to resume care with them upon discharge. CM will continue to follow and assist as needed with discharge planning / needs. DCP- Discharge Planning Updated by [email or web address]: Krystina Romero on 05/10/19 4:[address] Patient Name: JETT LIMA Admission Status: Elective Accout number: [id number] Admission Date: 05-09-2019 : 1950 Admission Diagnosis: Attending: ISABELLA ROSALES Current LOS: 1 Anticipated DC Date: Planned Disposition: Home with Home Health Primary Insurance: MEDICARE A & B Discharge Planning Comments: CM met with patient at bedside after explaining CM role and obtaining verbal consent. Patient lives at home with his Marina and plans to return there upon discharge. Patient feels this would be a safe discharge. Patient states he has home 02 and portable 02. Patient states that he has Home Health but can't recall which agency. CM will speak with to find out agency. Patient denies any discharge needs at this time. Patient states he will have his drive him home upon discharge. CM will continue to follow and assist as needed with discharge planning / needs. Director Of Social Media Marketing: Krystina CARBAJAL - Discharge Planning Initial Assessment Updated by [id number]: Krystina Romero on 05/10/19 4:58 pm * Is the patient Alert and Oriented? Yes * How many steps to enter\exit or inside your home? * PCP [facility] * Pharmacy [facility] * Preadmission Environment Home with Family * ADLs Independent * Other Equipment HOME 02 & PORTABLE * List name and contact numbers for known caregivers / representatives who currently or will assist patient after discharge: MARINA LIMA - SPOUSE - [phone] * Verbal permission to speak to the caregivers and representatives has been obtained from the patient. N/A * Community resources currently utilized Home Health * Please name any agencies selected above. PATIENT RECALL WHICH HH AGENCY WILL GET WITH TO FIND OUT * Additional services required to return to the preadmission environment? No * Can the patient safely return to the preadmission environment? Yes * Has this patient been hospitalized within the prior 30 days at any hospital? No Coverage Notice Reviewer: [id number] - Krystina Romero Notice Issued Date-Time: 05/15/2019 9:42 Notice Type: IM Discharge Notice Notice Delivered To: Family Member Relationship to Patient: Spouse Gyro Mechanic Name: JAMES LIMA Delivery Method: HAND - Hand Delivered [place] Days: Prior Verbal Notification: Recipient Understood Notice: Yes Recipient Signature: Yes Med Rec Note Co-signed by Attending: Coverage Notice Comment: Last DP export: 05/15/19 3:13 pm Patient Name: JETT LIMA Page [phone] at 8066 All edits/amendments must be made on the electronic document DICTATION DATE: 05/15/19 7018 CIS COORDINATOR: TAMIKO 05/15/19 0669 RPT#: [id number] DC DATE:05/15/19 STATUS: DIS IN [facility] [address] [place] [address] END OF REPORT
== END 2019-05-15 10:30 | disposition home health service (06) | DRG 236 ==
LOC: D.SDCHOLD 05-04 07:30 → D.CVICU 05-09 05:00 → D.SDCHOLD 05-09 05:00 → D.CVICU 05-09 11:19
PROVIDERS: Anesthesiology; ADMIT Thoracic Surgery (Cardiothoracic Vascular Surgery); ATTEND Thoracic Surgery (Cardiothoracic Vascular Surgery)
PROC: 021209W Bypass Coronary Artery, Three Arteries from Aorta with Autologous Venous Tissue, Open Approach (ICD-10-PCS; 2019-05-09)
PROC: 06BP0ZZ Excision of Right Saphenous Vein, Open Approach (ICD-10-PCS; 2019-05-09)
PROC: B24BZZ4 Ultrasonography of Heart with Aorta, Transesophageal (ICD-10-PCS; 2019-05-09)
PROC: 02100A9 Bypass Coronary Artery, One Artery from Left Internal Mammary with Autologous Arterial Tissue, Open Approach (ICD-10-PCS; principal; 2019-05-09 07:30)
DX: I25.10 Atherosclerotic heart disease of native coronary artery without angina pectoris (principal); J96.11 Chronic respiratory failure with hypoxia; E87.1 Hypo-osmolality and hyponatremia; J98.11 Atelectasis; I13.0 Hypertensive heart and chronic kidney disease with heart failure and stage 1 through stage 4 chronic kidney disease, or unspecified chronic kidney disease; I50.22 Chronic systolic (congestive) heart failure; J84.9 Interstitial pulmonary disease, unspecified; I12.9 Hypertensive chronic kidney disease with stage 1 through stage 4 chronic kidney disease, or unspecified chronic kidney disease; N18.9 Chronic kidney disease, unspecified; M32.9 Systemic lupus erythematosus, unspecified; E11.22 Type 2 diabetes mellitus with diabetic chronic kidney disease; D50.9 Iron deficiency anemia, unspecified; R53.81 Other malaise; E55.9 Vitamin D deficiency, unspecified; Z87.891 Personal history of nicotine dependence

== ENCOUNTER 2019-05-25 16:17 | Inpatient (IN) | payer MEDICARE, BC ==
[~2019-05-25] VITALS: Ht 167.6 cm; Wt 68.0 kg
[~2019-05-25 16:17] MED LIST changes: +AMIODARONE HCL200 MG PO; +ARAVA10 MG PO; +ASPIRIN EC81 M1 PO; +COLACE100 MG PO; +LOPRESSOR25 MG PO; +PERCOCET 5-3251 TAB PO; +Senokot-S Tablet PO; +ZANAFLEX2 M1 PO
[2019-05-25] MEDS ORDERED: COZAAR50 MG PO (17:03)
[2019-05-25] MEDS ORDERED: SYNTHROID112 MCG PO (17:07)
[2019-05-25] MEDS ORDERED: ACETAMINOPHEN500 M1 PO (17:11)
[2019-05-25 18:28] VITALS: BP 197/89; BMI 24.2
[2019-05-25 19:44] VITALS: BP 172/87
--- NOTE | 2019-05-25 20:10 | NUR ---
AWAKE AND ALERT. ASSISTED TO BATHROOM AND BACK TO BED. MINIMAL ASSIST. INCISION TO STERNUM INTACT AND HEALING WITH SCABBING OVER IT. SAME FOR RIGHT UPPER LEG WHERE HARVEST SITES ARE. DENIES PAIN. O2/2L ON PER NASAL CANNULA. NO ACUTE DISTRESS NOTED. CALL LIGHT IN REACH..
--- NOTE | 2019-05-26 03:25 | NUR ---
RESTING IN BED WITH EYES CLOSED AND RESPIRATIONS UNLABORED. NO DISTRESS NOTED. CALL LIGHT IN REACH.
--- NOTE | 2019-05-26 05:01 | NUR ---
QUIET HOURS. RESTING IN BED WITH NO DISTRESS NOTED. NO ACUTE CHANGES IN CONDITION THIS SHIFT. CALL LIGHT IN REACH.
[2019-05-26 06:20] LABS: BASOPHILS 0.7 % (0-2); EOSINOPHILS 5.3 % (0-7); HEMOGLOBIN 11.9 g/dL (13.5-17.5); IMMATURE GRANULOCYTES 1.9 % (0-5); LYMPHOCYTES 21.9 % (15-50); MCH 29.8 pg (26.0-34.0); MCV 85.2 fL (80.0-100.0); MEAN PLATELET VOLUME 8.6 fL (7.4-10.4); MONOCYTES 8.4 % (2-11); NEUTROPHILS 61.8 % (40-80); PLATELET COUNT 314 10x3/uL (130-400); RBC 3.99 10x6/uL (4.20-6.10); RDW 15.2 % (11.5-14.5); WBC 9.6 10x3/uL (4.8-10.8)
[2019-05-26 06:51] LABS: CALCIUM 8.5 mg/dL (8.5-10.1); CARBON DIOXIDE 24.6 mmol/L (21.0-32.0); CREATININE - SERUM 1.6 mg/dL (0.6-1.3); POTASSIUM - SERUM 5.1 mmol/L (3.5-5.1)
[2019-05-26 06:58] LABS: ANION GAP 13.5 mmol/L (8-16)
--- NOTE | 2019-05-26 07:13 | NUR ---
RECEIVED REPORT. SITTING UP IN BED WATCHING MORNING NEWS. CONTINUES ON 2L VIA SC. ALERT AND ORIENTED X3. DENIES ANY NEEDS OR PAIN. CALL LIGHT WITHIN REACH, FALL PRECAUTIONS IN PLACE. WILL CONTINUE TO MONITOR
[2019-05-26 08:00] VITALS: BP 160/74
--- NOTE | 2019-05-26 11:48 | NUR ---
IN THERAPY GYM PARTICIPATING IN OT
[2019-05-26 12:35] VITALS: BMI 24.2
--- NOTE | 2019-05-26 13:52 | NUR ---
IN ROOM SITTING UP IN BED PARTICIPATING IN SPEECH WITH ALEX
--- NOTE | 2019-05-26 17:04 | NUR ---
SITTING UP IN BED EATING DINNER. FAMILY AT BEDSIDE. NO SIGNS OF DISTRESS NOTED
[2019-05-26 19:40] VITALS: BP 162/78
--- NOTE | 2019-05-26 19:59 | NUR ---
AWAKE AND ALERT. RESTING IN BED. RESPIRATIONS UNLABORED ON O2/2L PER NASAL CANNULA. INCISION TO CHEST IS HEALING AND NO REDNESS OR DRAINAGE. INCISIONS TO ABDOMEN AND RIGHT UPPER LEG HEALING WITH NO DRAINAGE. NO ACUTE DISTRESS NOTED. CALL LIGHT IN REACH.
--- NOTE | 2019-05-27 05:06 | NUR ---
QUIET HOURS. RESTING IN BED WITH NO DISTRESS NOTED. NO ACUTE CHANGES IN CONDITION THIS SHIFT. CALL LIGHT IN REACH.
[2019-05-27 07:15] VITALS: BP 166/80
--- NOTE | 2019-05-27 07:15 | NUR ---
RECEIVED REPORT. SITTING UP IN BED WATCHING MORNING NEWS. ALERT AND ORIENTED X4. DENIES ANY NEEDS OR PAIN. CONTINUES ON 2L VIA NC. BILATERAL ISMA HOSE ON AND FREE OF WRINKLES. SHIFT ASSESSMENT COMPLETED. MIDLINE, ABDOMEN, RIGHT THIGH INCISIONS WELL APPROXIMATED AND HEALING, FREE OF REDNESS, DRAINAGE, OR EDEMA. MIGDALIA LIGHT WITHIN REACH, FALL PRECAUTIONS IN PLACE. WILL CONTINUE TO MONITOR
--- NOTE | 2019-05-27 12:42 | NUR ---
SITTING UP IN BED EATING LUNCH. AT BEDSIDE NOTED. NO SIGNS OF DISTRESS NOTED. WILL CONTINUE TO MONITOR
--- NOTE | 2019-05-27 15:35 | NUR ---
ASSISTED TO RESTROOM WITH SBA.
--- NOTE | 2019-05-27 17:40 | NUR ---
SITTING UP IN BED EATING DINNER. NO SIGNS OF DISTRESS NOTED. CONTINUES ON 2L VIA NC. WILL CONTINUE TO MONITOR
--- NOTE | 2019-05-27 19:33 | NUR ---
GREETED PATIENT AND INTRODUCED MYSELF. PATIENT IS LAYING IN BED WATCHING TV. RESPIRATIONS EVEN. NO S/S OF DISTRESS. SR UP X 2. BED IN LOWEST POSITION. PT. DENIES ANY NEEDS AT THIS TIME. CALL LIGHT IN REACH.
[2019-05-27 20:13] VITALS: BP 145/74
[2019-05-27 20:24] VITALS: BP 145/74
--- NOTE | 2019-05-28 03:35 | NUR ---
PATIENT LAYING IN BED IN SUPINE POSITION WATCHING TV. DENIES ANY NEEDS. CALL LIGHT IN REACH.
[2019-05-28 07:40] VITALS: BP 158/72
--- NOTE | 2019-05-28 07:40 | NUR ---
RECEIVED REPORT. SITTING UP IN BED WATCHING MORNING NEWS. A&O X4. DENIES ANY PAIN OR NEEDS. VS STABLE, SHIFT ASSESSMENT COMPLETE. CONTINUES ON 2L VIA NC. REMOVED ISMA HOSE AND ASSESSED SKIN, REPLACED ISMA HOSE. CALL LIGHT WITHIN REACH, FALL PRECAUTIONS IN PLACE. WILL CONTINUE TO MONITOR
--- NOTE | 2019-05-28 12:50 | NUR ---
SITTING UP IN BED EATING LUNCH VISITING WITH . DENIES ANY NEEDS C/O SOME NAUSEA, GAVE COOL WASHCLOTH AND EMESIS BAG. DOES NOT WANT ANYTHING FOR NAUSEA. WILL CONTINUE TO MONITOR
--- NOTE | 2019-05-28 14:00 | NUR ---
ASSISTED PT WITH SHOWER. MOD ASSIST WITH SHOWER AND DRESSING.
--- NOTE | 2019-05-28 17:51 | NUR ---
SITTING UP IN BED EATING DINNER. DENIES ANY NEEDS OR PAIN. NO SIGNS OF DISTRESS NOTED. CONTINUES ON 2L VIA NC. WILL CONTINUE TO MONITOR
--- NOTE | 2019-05-28 19:30 | NUR ---
PATIENT RESTING QUIETLY AT THIS TIME. NO COMPLAINTS NOTED. WILL CONTINUE TO MONTIOR.
--- NOTE | 2019-05-28 21:00 | NUR ---
PATIENT SITTING UP IN BED WATCHING TV. ALERT AND ORIENTED. PM MEDICATION GIVEN. NO OTHER COMPLAINTS. WILL CONTINUE TO MONITOR. CALL LIGHT WITHIN REACH.
[2019-05-28 22:53] VITALS: BP 136/76
--- NOTE | 2019-05-29 01:59 | NUR ---
PATIENT SLEEPING AT THIS TIME. WILL CONTINUE TO MONITOR.
[2019-05-29 06:34] LABS: BASOPHILS 0.5 % (0-2); EOSINOPHILS 5.3 % (0-7); HEMATOCRIT 33.9 % (42.0-54.0); HEMOGLOBIN 11.8 g/dL (13.5-17.5); IMMATURE GRANULOCYTES 1.5 % (0-5); LYMPHOCYTES 25.9 % (15-50); MCH 29.6 pg (26.0-34.0); MCHC 34.8 g/dL (31.0-37.0); MEAN PLATELET VOLUME 8.7 fL (7.4-10.4); MONOCYTES 7.7 % (2-11); NEUTROPHILS 59.1 % (40-80); PLATELET COUNT 274 10x3/uL (130-400); RBC 3.99 10x6/uL (4.20-6.10); RDW 15.5 % (11.5-14.5); WBC 9.7 10x3/uL (4.8-10.8)
[2019-05-29 06:47] LABS: ANION GAP 14.6 mmol/L (8-16); CALCIUM 8.8 mg/dL (8.5-10.1); CARBON DIOXIDE 25.3 mmol/L (21.0-32.0); CREATININE - SERUM 1.9 mg/dL (0.6-1.3); POTASSIUM - SERUM 4.9 mmol/L (3.5-5.1)
[2019-05-29 08:00] VITALS: BP 101/55
--- NOTE | 2019-05-29 08:15 | NUR ---
PT RESTING IN BED WITH EYES OPEN CALL LIGHT IN REACH WILL MONITER
--- NOTE | 2019-05-29 13:48 | NUR ---
PT RESTING IN BED WITH EYES OPEN CALL LIGHT IN REACH NO PROBLEMS WILL MONITER
--- NOTE | 2019-05-29 14:18 | NUR ---
PATIENT ADMITTED TO REHAB . DR. VILLAREAL IS PATIENT PCP . DME AT HOME IS O2. DISCHARGE PLANS ARE FOR PATTIENT TO RETURN HOME WITH FAMILY. WILL CONTINUE TO FOLLOW WITH PATIENT.
--- NOTE | 2019-05-29 18:10 | NUR ---
PT RESTING IN BED WITH EYES OPEN CALL LIGHT IN REACH NO PROBLEMS WILL MONITER
--- NOTE | 2019-05-29 19:40 | NUR ---
ASSISTED TO BATHROOM AND BACK TO BED. HAD LOOSE BM. REPSIRATIONS UNLABORED ON O2/2L PER NASAL CANNULA. CHEST, ABDOMINAL AND RIGHT LEG INCISIONS INTACT. NO C/O PAIN. CALL LIGHT IN REACH.
[2019-05-29 20:59] VITALS: BP 103/667
--- NOTE | 2019-05-30 05:01 | NUR ---
QUIET HOURS. NO ACUTE CHANGES IN CONDITION THIS SHIFT. RESTING IN BED WITH NO DISTRESS NOTED. CALL LIGHT IN REACH.
[2019-05-30 07:00] VITALS: BP 108/57
--- NOTE | 2019-05-30 07:40 | NUR ---
RECEIVED REPORT. LYING IN BED ALERT AND ORIENTED X4 WATCHING TV. DENIES ANY NEEDS OR PAIN. CONTINUES ON 2L VIA NC. VS STABLE, SHIFT ASSESSMENT COMPLETE. CALL LIGHT WITHIN REACH, FALL PRECAUTIONS IN PLACE. WILL CONTINUE TO MONITOR
--- NOTE | 2019-05-30 12:03 | NUR ---
LYING IN BED EYES CLOSED RESTING. NO SIGNS OF DISTRESS NOTED. CONTINUES ON 2L VIA NC. WILL CONTINUE TO MONITOR
--- NOTE | 2019-05-30 12:47 | NUR ---
NUTRITION F/U CHART REVIEWED, PT VISIT. PT REPORTS POOR PO INTAKE AND NO APPETITE. AGREEABLE TO GLUCERNA SHAKE WITH MEALS. RD FOLLOWING
--- NOTE | 2019-05-30 14:28 | NUR ---
IN THERAPY GYM PARTICIPATING IN OT. NO SIGNS OF DISTRESS NOTED.
--- NOTE | 2019-05-30 16:30 | NUR ---
ASSISTED WITH SHOWER SET UP AND SHOWER WITH MOD ASSIST.
--- NOTE | 2019-05-30 17:38 | NUR ---
SITTING UP IN BED EATING DINNER. NO SIGNS OF DISTRESS NOTED. WILL CONTINUE TO MONITOR
[2019-05-30 19:39] VITALS: BP 139/77
--- NOTE | 2019-05-30 20:14 | NUR ---
AWAKE AND ALERT. RESTING IN BED WITH NO DISTRESS NOTED. INCISIONS TO CHEST, ABDOMEN, AND RIGHT LEG HEALING/INTACT WITH NO DRAINAGE OR REDENESS. NO C/O PAIN. CALL LIGHTIN REACH.
[2019-05-31] VITALS (9 sets, daily range): BP systolic 118–180; BP diastolic 58–96; Ht 167.6 cm; Wt 68.0 kg
--- NOTE | 2019-05-31 02:25 | NUR ---
RESTING IN BED WITH RESPIRATIONS UNLABORED. NO DISTRESS NOTED. CALL LIGHT IN REACH.
--- NOTE | 2019-05-31 04:59 | NUR ---
QUIET HOURS. NO ACUTE CHANGES IN CONDITION THIS SHIFT. RESTING IN BED WITH RESPIRATIONS UNLABORED. NO DISTRESS NOTED. CALL LIGHT IN REACH.
[2019-05-31 07:21] LABS: BASOPHILS 0.4 % (0-2); EOSINOPHILS 8.4 % (0-7); HEMATOCRIT 32.4 % (42.0-54.0); HEMOGLOBIN 11.2 g/dL (13.5-17.5); IMMATURE GRANULOCYTES 1.4 % (0-5); LYMPHOCYTES 26.5 % (15-50); MCH 29.4 pg (26.0-34.0); MCHC 34.6 g/dL (31.0-37.0); MEAN PLATELET VOLUME 9.3 fL (7.4-10.4); MONOCYTES 8.6 % (2-11); NEUTROPHILS 54.7 % (40-80); PLATELET COUNT 231 10x3/uL (130-400); RBC 3.81 10x6/uL (4.20-6.10); RDW 15.5 % (11.5-14.5); WBC 9.4 10x3/uL (4.8-10.8)
[2019-05-31 07:35] LABS: ANION GAP 14.8 mmol/L (8-16); CALCIUM 8.6 mg/dL (8.5-10.1); CARBON DIOXIDE 24.6 mmol/L (21.0-32.0); CREATININE - SERUM 1.9 mg/dL (0.6-1.3); POTASSIUM - SERUM 4.4 mmol/L (3.5-5.1)
--- NOTE | 2019-05-31 08:01 | NUR ---
ALERT AND ORIENTED. EATING BREAKFAST. NO C/O PAIN. CL IN REACH. RESP EVEN AND UNLABORED.
--- NOTE | 2019-05-31 10:30 | NUR ---
FELT NAUSEAED DURING THERAPY. WAS DOING LEG EXERCISES. VOMITED. VERY PALE. PUT IN BED IN THE [facility]. BP 180/96 HR 64 RESP 22 O2 SAT 99. RETOOK AFTER 5 MIN 173/58 67 18 100 O2 SAT. RETOOK AFTER 5MIN. 140/68 61. RESTING IN BED AT THIS TIME. NOTIFIED DR HINTON.
--- NOTE | 2019-05-31 11:03 | NUR ---
CONSULTED DR DENNIS TREE DEADENER FOR DR ROSALES. WILL SEE PT TODAY NURSE STATED. CONSULTED DR NORRIS TREE DEADENER FOR DR CASTELLANOS. 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 NURSE SAID HE WILL SEE PT TODAY.
--- NOTE | 2019-05-31 14:39 | NUR ---
CARE TEAM MEETING: PATIENT SPOUSE ATTENDED MEETING. HER QUESTIONS AND CONCERNS WERE ADDRESSED. DR. HINTON TO CONSULT CARDIO TO EVAL PATIENT FOR BP ISSUES. WILL CONTINUE TO FOLLOW WITH PATIENT . TENATIVE DISCHARGE DATE IS 06/06/19.
--- NOTE | 2019-05-31 18:13 | NUR ---
NO CHANGE IN ASSESSMENT. ALERT AND ORIENTED. NO DISTRESS NOTED.
--- NOTE | 2019-05-31 19:48 | NUR ---
AWAKE AND ALERT. RESTING IN BED. STATES HE HAD A "WEAK SPELL" TODAY. RESPIRATIONS UNLABORED AT THIS TIME. ON TELEMETRY WHICH SHOWS SR WITH BBB. NO C/O PAIN. SKIN TONE PALE. INSTRUCTED TO CALL NURSE IF HE EXPERIENCES CHEST PAIN OR DISCOMFORT, SHORTNESS OF BREATH, DIZZINESS, NAUSEA, VOMITING, OR ANXIETY. VOICES UNDERSTANDING. O2/2L ON PER NASAL CANNULA. CALL LIGHT IN REACH.
--- NOTE | 2019-06-01 05:26 | NUR ---
QUIET HOURS. NO ACUTE CHANGES IN CONDITION THIS SHIFT. DENIES PAIN, SHORTNESS OF BREATH, DIZZINESS OR ANY DISCOMFORTS DURING THIS SHIFT. RESPIRATIONS UNLABORED. O2/2L ON PER NASAL CANNULA. CALL LIGHT IN REACH.
[2019-06-01 08:00] VITALS: BP 142/81
--- NOTE | 2019-06-01 08:15 | NUR ---
PT RESTING IN BED WITH EYES OPEN CALL LIGHT IN REACH NO PROBLEMS WILL MONITER
[2019-06-01 09:42] VITALS: BP 100/58
--- NOTE | 2019-06-01 18:34 | NUR ---
PT RESTING IN BED WITH EYES OPEN CALL LIGHT IN REACH NO PROBLEMS WILL MONITERS
--- NOTE | 2019-06-01 19:51 | NUR ---
PATIENT RECEIVED SITTING UP IN BED. ASSESSMENT & VITAL SIGNS DONE. NO C/O PAIN OR DISTRESS. BED LOW. ALARM ON. CALL LIGHT WITHIN REACH. WILL CONTINUE TO MONITOR.
[2019-06-01 20:08] VITALS: BP 129/63
--- NOTE | 2019-06-02 02:26 | NUR ---
PATIENT AWAKE ON ROUND. PATIENT REQUEST FOR HIS GATORADE. PATIENT CONTINUE ON NO FREE WATER ORDER. BED LOW. ALARM ON. CALL LIGHT WITHIN REACH. WILL CONTINUE TO MONITOR.
--- NOTE | 2019-06-02 06:18 | NUR ---
I have reviewed this patient and I concur with the Shift Assessment completed by the Licensed Practical Nurse today this shift.
[2019-06-02 06:49] LABS: BASOPHILS 0.5 % (0-2); EOSINOPHILS 8.2 % (0-7); HEMATOCRIT 30.8 % (42.0-54.0); HEMOGLOBIN 10.6 g/dL (13.5-17.5); IMMATURE GRANULOCYTES 1.1 % (0-5); LYMPHOCYTES 28.6 % (15-50); MCH 29.4 pg (26.0-34.0); MCHC 34.4 g/dL (31.0-37.0); MCV 85.6 fL (80.0-100.0); MEAN PLATELET VOLUME 9.2 fL (7.4-10.4); MONOCYTES 8.6 % (2-11); PLATELET COUNT 205 10x3/uL (130-400); RDW 15.6 % (11.5-14.5); WBC 8.3 10x3/uL (4.8-10.8)
[2019-06-02 07:05] LABS: ANION GAP 13.3 mmol/L (8-16); CARBON DIOXIDE 23.3 mmol/L (21.0-32.0); CREATININE - SERUM 1.8 mg/dL (0.6-1.3); POTASSIUM - SERUM 4.6 mmol/L (3.5-5.1)
--- NOTE | 2019-06-02 08:15 | NUR ---
PT RESTING IN BED WITH EYES OPEN CALL LIGHT IN REACH WILL MONITER
[2019-06-02 08:31] VITALS: BP 162/73
[2019-06-02 09:00] VITALS: BP 100/55
--- NOTE | 2019-06-02 13:30 | NUR ---
PT IN THERAPY GYM WITH THERAPIST PT B/P WAS REPORTED TO BE 58/32 PT BECAME PALE AND THEN BECAME UNRESPONSIVE TO VERBAL COMMAND PT WHEELCHAIR WAS PUT BACK AND WHEELED TO ROOM PT PUT BACK IN BED WITH 3 PERSON LIFT. PT IMMEDIATELY WAS RESPONSIVE PT STARTED THROWING UP YELLOW EMISIS. PT B/P WENT UP TO 180/78. AFTER PT VOMITED HE DID STATE HE WAS OK AND FEELING BETTER PT CLEANED AND PT AT 30 DEGREE ANGLE WILL MONITER. WILL NOTIFY DR HINTON
--- NOTE | 2019-06-02 14:30 | NUR ---
PT RESTING IN BED WITH EYES OPEN PT STATES HE IS FEELING OK B/P 138/86 CALL LIGHT IN REACH WILL HOLLYER
--- NOTE | 2019-06-02 17:14 | NUR ---
PT RESTING IN BED WITH EYES OPEN CALL LIGHT IN REACH WILL MONITER
[2019-06-02 19:48] VITALS: BP 127/74
--- NOTE | 2019-06-02 20:00 | NUR ---
PATIENT RECEIVED SITTING UP IN BED WATCHING TV. ASSESSMENT & VITAL SIGNS DONE. NO C/O PAIN OR DISTRESS. BED LOW. TABLE & CALL LIGHT WITHIN REACH. WILL CONTINUE TO MONITOR.
--- NOTE | 2019-06-03 02:32 | NUR ---
I have reviewed this patient and I concur with the Shift Assessment completed by the Licensed Practical Nurse today this shift.
--- NOTE | 2019-06-03 03:48 | NUR ---
PATIENT EYES CLOSED. RESPIRATIONS 18 & EVEN. BED LOW. TABLE & CALL LIGHT WITHIN REACH. WILL CONTINUE TO MONITOR.
--- NOTE | 2019-06-03 08:03 | NUR ---
ALERT AND ORIENTED. NO CISTRESS NOTED. CL IN REACH.
[2019-06-03 09:17] VITALS: BP 173/83
[2019-06-03 09:24] VITALS: BP 173/83
[2019-06-03 09:25] VITALS: BP 119/72
[2019-06-03 09:26] VITALS: BP 116/62
--- NOTE | 2019-06-03 13:48 | NUR ---
REFUSED SHOWER. AT BS. PATIENT FEELS NAUSEAED. OFFERED ZOFRAN. PATIENT REFUSED MED.
--- NOTE | 2019-06-03 13:58 | NUR ---
RESTING IN BED AT THIS TIME. STILL IN ROOM. DOES NOT FEEL LIKE GETTING UP FOR SHOWER.
[2019-06-03 15:57] VITALS: BP 150/72
--- NOTE | 2019-06-03 17:08 | NUR ---
NO CHANGE IN ASSESSMENT. NO C/O PAIN. CL IN REACH.
[2019-06-03 19:30] VITALS: BP 159/69
--- NOTE | 2019-06-03 19:46 | NUR ---
PT LYING IN BED WATCHING TV. CL IN REACH. DENIES NEEDS AT THIS TIME. BED IN LOW SIDE RAILS X2. RESP EVEN AND UNLABORED. O2 ON 2L VIA NC. LUNGS ON LEFT SIDE HAVE SLIGHT RUB IN UPPER LEFT LOBE WHEN BREATHING OUT. ASKED PT IF HE HAS BEEN COUGHING HE STATED YES. ENCOURAGED DEEP BREATHING AND COUGHING. ASSESSMENT COMPLETED. WILL CONTINUE TO MONITOR. BOWEL ACTIVE X4.
--- NOTE | 2019-06-03 22:52 | NUR ---
PT HOUSE DESIGNER LIGHT ASKING FOR ASSISTANCE WITH ELIZABETH ON BUTTOCK AND BENGAY ON MID BACK AREA. DENIES FURTHER NEEDS. CL IN REACH. CPOC
--- NOTE | 2019-06-04 02:15 | NUR ---
WHILE TAKING PT NEXT DOOR TO BATHROOM THIS PT ASKED FOR ASSISTENCE APPLYING BENGAY TO HIS BACK. ASSISTED PT WITH APPLYING CREAM. DENIES FURTHER NEEDS. CPOC
--- NOTE | 2019-06-04 03:57 | NUR ---
I have reviewed this patient and I concur with the Shift Assessment completed by the Licensed Practical Nurse today this shift.
--- NOTE | 2019-06-04 07:40 | NUR ---
NO CHANGE IN ASSESSMENT. NO C/O PAIN. CL IN REACH.
[2019-06-04 08:04] VITALS: BP 146/75
[2019-06-04 09:08] VITALS: BP 133/70
[2019-06-04 09:09] VITALS: BP 126/70
[2019-06-04 09:10] VITALS: BP 118/60
--- NOTE | 2019-06-04 09:11 | NUR ---
REQUESTED AMALIA FROM PHARMACY. NONE IN [facility] OR [facility]. UNABLE TO GIVE AT THIS TIME.
--- NOTE | 2019-06-04 10:53 | NUR ---
RESTING WO DISTRESS. NO C/O PAIN. CL IN REACH.
--- NOTE | 2019-06-04 13:07 | NUR ---
GOT PATIENT UP IN WC WHILE I CHANGED LINENS. WAS GOING TO GIVE HIM A SHOWER. HE FELT DIZZY AND WEAK AND WAS PLACED BACK IN BED IN [place]. STARTED TO FEEL BETTER. CLEANED PATIENT UP WHILE IN BED. AT BS. WILL LET DR HINTON KNOW. PATIENT HAS BEEN BEEN FEELING DIZZY AND NAUSESED AT TIMES. DR HINTON AWARE OF THIS AND CARDIOLOGY HAS BEEN CONSULTED LAST WEEK.
--- NOTE | 2019-06-04 16:06 | NUR ---
NO CHANGE IN ASSESSMENT. AT BS. RESTING IN BED. CL IN REACH.
[2019-06-04 16:09] VITALS: BP 134/68
--- NOTE | 2019-06-04 19:15 | NUR ---
ASSISTED TO AND FROM BATHROOM. BM NOTED. BACK IN BED NO PROBLEMS. NO DIZZY SPELL. MIN ASSIST. BACK IN BED. CL IN REACH. DENIES FURTHER NEEDS. RESP EVEN AND UNLABORED. ASSESSMENT COMPLETED. WCTM
[2019-06-04 20:08] VITALS: BP 143/69
--- NOTE | 2019-06-05 00:11 | NUR ---
I have reviewed this patient and I concur with the Shift Assessment completed by the Licensed Practical Nurse today this shift.
--- NOTE | 2019-06-05 03:10 | NUR ---
ASSISTED PT CHANGING UNDERWEAR AND PJ PANTS DUE TO SPILLING OF URINAL. DENIES FURTHER NEEDS. CPOC
[2019-06-05 07:14] LABS: ANION GAP 10.1 mmol/L (8-16); CARBON DIOXIDE 26.4 mmol/L (21.0-32.0); CREATININE - SERUM 1.6 mg/dL (0.6-1.3); POTASSIUM - SERUM 4.5 mmol/L (3.5-5.1)
[2019-06-05 07:19] LABS: BASOPHILS 0.5 % (0-2); EOSINOPHILS 8.2 % (0-7); HEMATOCRIT 31.8 % (42.0-54.0); HEMOGLOBIN 10.9 g/dL (13.5-17.5); IMMATURE GRANULOCYTES 1.1 % (0-5); MCH 29.5 pg (26.0-34.0); MCHC 34.3 g/dL (31.0-37.0); MCV 86.2 fL (80.0-100.0); MEAN PLATELET VOLUME 8.9 fL (7.4-10.4); MONOCYTES 7.4 % (2-11); NEUTROPHILS 54.8 % (40-80); PLATELET COUNT 169 10x3/uL (130-400); RBC 3.69 10x6/uL (4.20-6.10); RDW 15.6 % (11.5-14.5); WBC 7.5 10x3/uL (4.8-10.8)
[2019-06-05 08:00] VITALS: BP 173/73
[2019-06-05] MEDS ORDERED: COREG 3.1253.125 MG PO (09:03)
--- NOTE | 2019-06-05 09:03 | RHP ---
PATIENT: JETT LIMA MEDICAL RECORD: [id number] ACCOUNT: [id number] LOCATION:[facility] : 46 ADMISSION DATE: 05/25/19 REHABILITATION HISTORY AND PHYSICAL EXAMINATION POST ADMISSION PHYSICIAN EXAMINATION DATE OF ADMISSION: 05/25/2019. ADMITTING DIAGNOSIS: Critical illness myopathy. HISTORY OF PRESENT ILLNESS: The patient is a 69-year-old gentleman who has had some medical issues in the past contributing to his physical decline over the last couple of months. He fell in March, was seen by his PCP and began on outpatient therapy for shoulder pain. He was able to have a session, was admitted to the acute hospital after a fall, was found to have pneumonia on 03/30/2019. He had an extended stay here in the acute hospital. At that time he was found to have severe occlusive coronary artery disease with intervention of coronary artery bypass grafting due to have an anomalous coronary vessels that precluded percutaneous intervention with a heart catheterization. He was discharged on 04/11/2019 to recover from pneumonia. He was discharged on O2 at that time. He was admitted back to the acute hospital on 05/09/2019 and underwent coronary artery bypass grafting times 4 with a left internal mammary artery to the LAD, reverse saphenous vein graft from the aorta to the first diagonal aorta to the obtuse marginal and aorta to the right coronary artery and endoscopic saphenous vein harvest. His postop diagnosis was subacute myocardial infarction secondary to abnormal vessels. The patient has become quite debilitated during his stay and inpatient rehab was asked for by his back tender insulation board and cardiothoracic surgeon. COMORBIDITIES: Include lupus, chronic kidney disease, hypothyroidism, falls, CVA, diabetes, hypertension, iron deficient anemia, vitamin D deficiency. He is an ex-smoker, debility, acute pain and deconditioning, recent weight loss and impaired mobility, gait disturbance and O2 dependence. PAST MEDICAL HISTORY: Significant for CVA, cataracts, diabetes, thyroid problems, coronary artery disease, hypertension, lupus and arthritis. PAST SURGICAL HISTORY: Includes right foot surgery secondary to a sewing needle. He has had cataract surgery, dental extractions, thoracotomy, coronary artery bypass grafting. ALLERGIES: No known drug allergies. CURRENT MEDICATIONS: Include Colace 100 mg daily. He is on Cozaar 50 mg daily. He is on atorvastatin 10 mg daily, vitamin D 2000 units daily, Arava 20 mg daily, aspirin chewable 81 mg daily, metformin 500 mg b.i.d. with meals, Synthroid 112 mcg daily, amiodarone 400 mg b.i.d., Lopressor 25 mg b.i.d., Calmoseptine to apply b.i.d. p.r.n., MiraLax 17 grams in 8 ounces of water daily, and acetaminophen as needed. HABITS: Does have a history of tobacco use from 16 until to approximately 10 years ago. FAMILY HISTORY: Noncontributory. HISTORY AND PHYSICAL [id number] JETT LIMA SOCIAL HISTORY: The patient hopes to return back home and get back to his prior level of functioning. REVIEW OF SYSTEMS: GENERAL: Does complain of weakness and fatigue. HEENT: Denies cold, cough, or congestion. CARDIOVASCULAR: Denies any chest pain. PHYSICAL EXAMINATION: VITAL SIGNS: Stable, afebrile. GENERAL: Well-developed gentleman in no acute distress, alert upon exam. HEENT: Normocephalic and atraumatic. Mucosa moist. NECK: Supple. No lymphadenopathy. LUNGS: Clear in upper wetzel. HEART: Regular rate and rhythm. No murmurs, rubs or gallops. ABDOMEN: Soft, nontender, nondistended. Positive bowel sounds times 4. EXTREMITIES: No clubbing, cyanosis or edema. NEUROLOGIC: He does have noted proximal muscle weakness. LABORATORY DATA: His white count is 9.6, H&H of 11.9 and 34, and platelet count 314. Sodium is 121 today, potassium 5.1, BUN and creatinine of 19 and 1.6, and blood sugar is noted to be 96. ASSESSMENT: This is a 69-year-old gentleman admitted to the rehab with a working diagnosis of critical illness myopathy. The patient has potential to make improvement. We instituted the following multidisciplinary therapies including, but not limited to physical, occupational, respiratory, speech, nutritional services, prosthetics and orthotics. Given his complex medical conditions and risks for more complications, rehabilitation services cannot be provided at a low level of care such as skilled nurse facility. PLAN: 1. Admit to [facility] rehab to include the following disciplines: A. Physical therapy to improve gait, all transfer skills and bed mobility to a modified independent level. B. Occupational therapy to improve activities of daily living to a modified independent level. C. Case management to assist with discharge planning and placement options. D. Nutrition to assist with nutritional needs. E. Rehabilitation nursing to assist in monitoring the patient's underlying medical conditions and to assist with any type of bowel and bladder management. 2. The patient's current medication and medical care will be continued. 3. The patient will be placed on standard fall precautions. 4. The patient's estimated length of stay is approximately 7-10 days. 5. I am going to go ahead and stop his Cozaar secondary to his decreased sodium. I am going to add some sodium and replace his Cozaar with a little bit of carvedilol for blood pressure control and I will see again in the a.m. TRANSINT:[id number] Voice Confirmation ID: [id number] DOCUMENT ID: [id number] MIGUEL notes whether there has been none or any medical/functional change since admission: - No change since preadmission screen. HISTORY AND PHYSICAL [id number] JETT LIMA attests patient continues to be appropriate for IRF: - Continues to be approrpiate. SAM HINTON MD at 0903 CC: [id number] DICTATION DATE: 05/26/19 0836 COIL STRAPPER: 05/26/19 0909 ADM IN [place] [id number] [place] [id number]
[2019-06-05 09:21] VITALS: BP 173/73
--- NOTE | 2019-06-05 09:32 | NUR ---
PATIENT IS ALERT/ORIENT. CALL LIGHT WITHIN REACH. VOICES NO NEEDS AT THIS TIME. WILL CONTINUE WITH PLAN OF CARE
--- NOTE | 2019-06-05 09:55 | NUR ---
OCCUPATIONAL THERAPIST IN ROOM WITH PATIENT. PATIENT PASSED OUT IN SHOWER. TAKEN BACK TO BED. V/S B/P 148/54. P50, R 18, PO 96. DR Javier HINTON HERE. AWARE OF
--- NOTE | 2019-06-05 13:44 | NUR ---
Nutrition follow-up: Diet: ADA with Glucerna TID PO intake ~53% average of last 8 meals Pt still with dizziness. +BM Wt: 150# RDN following.
--- NOTE | 2019-06-05 14:05 | NUR ---
PATIENT RESTING IN BED AFTER THERAPY AND LUNCH. AT BEDSIDE
--- NOTE | 2019-06-05 19:42 | NUR ---
PT IN BED LOWEST POSITION, FAMILY AT BEDSIDE, NO IMMEDIATE NEEDS NOTED, NO FREE WATER, GATORADE AND CALL LIGHT WITHIN REACH
[2019-06-05 20:05] VITALS: BP 173/72
--- NOTE | 2019-06-06 01:20 | NUR ---
PT IN BED LOWEST POSITION, EYES CLOSED, AROUSES EASILY TO VOICE, RESPIRATIONS EVEN AND UNLABORED, NO IMMEDIATE NEEDS NOTED AT THIS TIME, FLUIDS AND CALL LIGHT WITHIN REACH
[2019-06-06 08:00] VITALS: BP 181/85
--- NOTE | 2019-06-06 08:45 | NUR ---
ALERT AND ORIENTED. CARDIOLOGY TO SEE PATIENT TODAY. SPOKE WITH . PATIENT WAS TO DC HOME TODAY. DC ON HOLD. PATIENT HAS EPISODES OF FAINTING ADN DECREASED CONSCIOUSNESS WHEN HE GETS IN SITTING POSITION. AND I WILL TELL PATIENT TOGETHER WHEN SHE ARRIVES TODAY OF DC ON HOLD.
--- NOTE | 2019-06-06 15:39 | NUR ---
RESTING QUIETLY. FAMILY HAS BEEN HERE THIS AM. WAITING TO SEE CARDIOLOGY.
[2019-06-06] MEDS ORDERED: AMIODARONE HCL200 MG PO (17:12)
--- NOTE | 2019-06-06 18:05 | NUR ---
REPORT GIVEN TO DONNA AREVALO.DC PATIENT TO ROOM 2115.
--- NOTE | 2019-07-13 10:44 | DS ---
PATIENT:JETT LIMA :[birth year] MEDICAL RECORD: [id number] DISCHARGE SUMMARY ADMISSION DATE: 05/25/19 DISCHARGE DATE: 06/06/19 This is a discharge dated 06/06/2019 from inpatient rehabilitation. PRIMARY DIAGNOSES: Decreased functional ability and ability to provide activities of daily living secondary to critical illness myopathy. SECONDARY DIAGNOSES: 1. Coronary artery disease, status post coronary artery bypass grafting. 2. Cerebrovascular accident. 3. Diabetes. 4. Hypertension. 5. Lupus. 6. Arthritis. 7. Chronic renal insufficiency. 8. Hypothyroidism. 9. Hyperlipidemia. 10. Anemia. 11. Vitamin D deficiency. 12. Hyponatremia. 13. Acute hypoxic respiratory failure. 14. Syncope. 15. Community-acquired pneumonia. 16. Urinary tract infection. CONSULTANTS FOLLOWING THIS HOSPITAL STAY HOSPITALIZATION: 1. Cardiology with Dr. Noriega. 2. Cardiovascular surgery with Dr. Nolan. HOSPITAL COURSE: Full H&P is located elsewhere on the chart on this 69-year-old male who was admitted to inpatient rehab for physical therapy and occupational therapy to improve gait, transfer skills, bed mobility, and activities of daily living to a modified independent level. He was evaluated by PT and OT and their plans of care were followed. He required assisted care for observation and assessment and medication administration as well as wound care and monitoring of surgical incisions. He remained on supplemental oxygen as needed to keep sats greater than 90%. Fingerstick blood sugars were monitored throughout his hospital stay with appropriate adjustment in medications as needed. Electrolytes were managed by protocol, he was cooperative with therapies, progressing towards goals; however, he developed some significant episodes of hypotension limiting therapies. He was seen by cardiovascular surgery and cardiology in followup. Medications were adjusted. These events persisted and he was transferred to the acute facility for higher level of care. He had made progress with OT and PT both. DISCHARGE MEDICATIONS: As per discharge medication reconciliation. DISCHARGE DISPOSITION: The patient is discharged to the acute hospital for higher level of care. He will continue to follow with primary care and specialists and will continue his current diet and level of activity. TRANSINT:[id number] Voice Confirmation ID: [id number] DOCUMENT ID: [id number] DISCHARGE SUMMARY REPORT [id number] JETT LIMA Dictated By: GUERA SEGURA I have interviewed/examined the above patient and agree with these documented findings. SAM HINTON MD at 1046 at 1044 CC: [id number] DICTATION DATE: 07/09/19 1530 LOG CHIPPER OPERATOR: 07/09/19 2252 DIS IN 06/06/19 [facility] [address] [place] [address]
== END 2019-06-06 18:34 | disposition short-term general hospital (02) | DRG 93 ==
LOC: D.REHAB 16:17
PROVIDERS: ADMIT Emergency Medicine; ATTEND Emergency Medicine
DX: G72.81 Critical illness myopathy (principal); I12.9 Hypertensive chronic kidney disease with stage 1 through stage 4 chronic kidney disease, or unspecified chronic kidney disease; E11.22 Type 2 diabetes mellitus with diabetic chronic kidney disease; N18.9 Chronic kidney disease, unspecified; M32.9 Systemic lupus erythematosus, unspecified; E03.9 Hypothyroidism, unspecified; D50.9 Iron deficiency anemia, unspecified; E55.9 Vitamin D deficiency, unspecified; R53.81 Other malaise; R63.4 Abnormal weight loss; R26.9 Unspecified abnormalities of gait and mobility; Z99.81 Dependence on supplemental oxygen

== ENCOUNTER 2019-06-06 16:16 | Inpatient (IN) | payer MEDICARE, BC ==
[~2019-06-06] VITALS: Ht 167.6 cm; Wt 63.6 kg
[~2019-06-06 16:16] MED LIST changes: +ACETAMINOPHEN500 M1 PO; +COREG 3.1253.125 MG PO; +SYNTHROID112 MCG PO
[2019-06-06] MEDS ORDERED: AMIODARONE HCL200 MG PO (17:12)
--- NOTE | 2019-06-06 18:22 | NUR ---
TRANSFER FROM REHAB BY BED. OREINTED TO ROOM. CALL LIGHT IN REACH. WILL CONT. PLAN OF CARE.
--- NOTE | 2019-06-06 19:29 | NUR ---
RESUMING PATIENT CARE. PATIENT ALERT AND ORIENTED. RESPIRATIONS ARE EVEN AND UNLABORED. NO S/S OF DISTRESS. NO C/O PAIN. DENIES NEEDS. CALL LIGHT WITHIN REACH. FAMILY AT BEDSIDE. WILL CPOC.
[2019-06-06 20:00] VITALS: BP 165/79
[2019-06-07] VITALS (25 sets, daily range): BP systolic 100–190; BP diastolic 53–90; Ht 167.6 cm; Wt 63.6 kg
--- NOTE | 2019-06-07 12:26 | NUR ---
ORTHOSTATIC B/P: LYING 170/90 70, SITTING 146/72 , AND STANDING 100/56. WILL MONITOR.
--- NOTE | 2019-06-07 13:00 | NUR ---
OP SIDE OF BED WITH PT ASSIST. ORSTHOSTATICS DONE BY PT.
--- NOTE | 2019-06-07 14:09 | NUR ---
EKG COMPLETED. SCDS ON. WILL CONT. PLAN OF CARE.
[2019-06-07 15:32] LABS: BASOPHILS 0.3 % (0-2); EOSINOPHILS 7.7 % (0-7); HEMATOCRIT 31.7 % (42.0-54.0); IMMATURE GRANULOCYTES 0.8 % (0-5); LYMPHOCYTES 25.2 % (15-50); MCH 29.5 pg (26.0-34.0); MCHC 34.7 g/dL (31.0-37.0); MEAN PLATELET VOLUME 8.4 fL (7.4-10.4); MONOCYTES 7.8 % (2-11); NEUTROPHILS 58.2 % (40-80); PLATELET COUNT 145 10x3/uL (130-400); RBC 3.73 10x6/uL (4.20-6.10); RDW 15.4 % (11.5-14.5); WBC 7.8 10x3/uL (4.8-10.8)
[2019-06-07 15:40] LABS: ANION GAP 11.3 mmol/L (8-16); CARBON DIOXIDE 26.9 mmol/L (21.0-32.0); CREATININE - SERUM 1.6 mg/dL (0.6-1.3); POTASSIUM - SERUM 4.2 mmol/L (3.5-5.1)
--- NOTE | 2019-06-07 17:09 | NUR ---
URINE SPECIMEN COLLECTED AND TAKEN TO LAB. WILL MONITOR.
[2019-06-07 18:09] LABS: CREATININE - URINE 106.2 mg/dL (30-125); PRO/CRE RATIO URINE 0.5 mg/g; PROTEIN - URINE 49.5 mg/dL (0.0-11.9)
--- NOTE | 2019-06-07 19:30 | NUR ---
RESUMING PATIENT CARE. PATIENT ALERT AND ORIENTED, RESTING COMFORTABLY IN BED. RESPIRATIONS ARE EVEN AND UNLABORED. NO S/S OF DISTRESS. NO C/O PAIN. DENIES NEEDS. FAMILY AT BEDSIDE. CALL LIGHT WITHIN REACH. WILL CPOC.
[2019-06-08] VITALS (34 sets, daily range): BP systolic 106–181; BP diastolic 61–85
[2019-06-08 06:02] LABS: BASOPHILS 0.2 % (0-2); EOSINOPHILS 8.5 % (0-7); HEMATOCRIT 29.5 % (42.0-54.0); HEMOGLOBIN 10.2 g/dL (13.5-17.5); IMMATURE GRANULOCYTES 0.8 % (0-5); LYMPHOCYTES 31.8 % (15-50); MCH 29.2 pg (26.0-34.0); MCHC 34.6 g/dL (31.0-37.0); MCV 84.5 fL (80.0-100.0); MEAN PLATELET VOLUME 8.6 fL (7.4-10.4); MONOCYTES 8.7 % (2-11); PLATELET COUNT 143 10x3/uL (130-400); RBC 3.49 10x6/uL (4.20-6.10); RDW 15.3 % (11.5-14.5); WBC 8.3 10x3/uL (4.8-10.8)
--- NOTE | 2019-06-08 06:05 | NUR ---
PT WENT TO XRAY. TOLERATED WELL. NO DIFFICULTY STNADING. NO S/S DISTRESS.
[2019-06-08 06:34] LABS: ANION GAP 10.9 mmol/L (8-16); CALCIUM 7.7 mg/dL (8.5-10.1); CARBON DIOXIDE 26.4 mmol/L (21.0-32.0); CREATININE - SERUM 1.4 mg/dL (0.6-1.3); MAGNESIUM - SERUM 1.2 mg/dL (1.8-2.4); PHOSPHOROUS 2.2 mg/dL (2.5-4.9); POTASSIUM - SERUM 4.3 mmol/L (3.5-5.1)
--- NOTE | 2019-06-08 08:03 | NUR ---
ORTHOSTATIC B/P: LYING 181/79 75, SITTING 141/70 75, STANDING 106/61 90.
--- NOTE | 2019-06-08 08:11 | NUR ---
IV STARTED TO LEFT FA BY SOPHIE AREVALO WITH 20 GAUGE CATH X 1 STICK. LINE IS PATENT. CT NOTIFIED.
--- NOTE | 2019-06-08 09:46 | MORECARE ---
CASE MANAGEMENT DISCHARGE SUMMARY PATIENT: JETT LIMA UNIT: [id number] ADM DATE: 06/06/19 AGE: 69 : 48 SEX: M ROOM/BED: D.2115 AUTHOR: JENNIFER CLARK PHYSICIAN: REFERRING PHYSICIAN: SAM HINTON MD DATE OF SERVICE: 06/08/19 Discharge Plan Patient Name: JETT LIMA Facility: [facility]:[place] : 1950 Planned Disposition: Home with Home Health Anticipated Discharge Date: Discharge Date: Expected LOS: Initial Reviewer: [email or web address] Initial Review Date: 06/08/2019 Generated: 06/08/19 10:46 am Coverage Notice Reviewer: [email or web address] - Timothy Enriquez Notice Issued Date-Time: 06/08/2019 9:35 Notice Type: Patient Choice Letter Notice Delivered To: Patient Relationship to Patient: Frame Stripper And Crusher Name: Delivery Method: HAND - Hand Delivered Marianna Days: Prior Verbal Notification: Recipient Understood Notice: Yes Recipient Signature: Yes Med Rec Note Co-signed by Attending: Coverage Notice Comment: [facility] Patient Name: JETT LIMA Page [id number] at 0946 All edits/amendments must be made on the electronic document DICTATION DATE: 06/08/19945 DEADENER: TAMIKO 06/08/19945 RPT#: [id number] DC DATE: STATUS: ADM IN [facility] [address] [place] [address] END OF REPORT
--- NOTE | 2019-06-08 09:53 | MORECARE ---
CASE MANAGEMENT DISCHARGE SUMMARY PATIENT: JETT LIMA UNIT: [id number] ADM DATE: 06/06/19 AGE: 69 : 48 SEX: M ROOM/BED: D.9205 AUTHOR: EDUARDODOC PHYSICIAN: REFERRING PHYSICIAN: SAM HINTON MD DATE OF SERVICE: 06/08/19 Discharge Plan Patient Name: JETT LIMA Facility: [facility]:[place] : 1950 Planned Disposition: Home with Home Health Anticipated Discharge Date: Discharge Date: Expected LOS: Initial Reviewer: [email or web address] Initial Review Date: 06/08/2019 Generated: 06/08/19 10:53 am DCPIA - Discharge Planning Initial Assessment Updated by [email or web address]: Timothy Enriquez on 06/08/19 9:51 am * Is the patient Alert and Oriented? Yes * How many steps to enter\exit or inside your home? * PCP DR. VILLAREAL * Pharmacy [address] * Preadmission Environment Home with Family * ADLs Independent * Equipment Oxygen Walker * Other Equipment HOME AND PORTABLE OXYGEN, UNKNOWN PROVIDER * List name and contact numbers for known caregivers / representatives who currently or will assist patient after discharge: VENESSA LIMA, SPOUSE, * Verbal permission to speak to the caregivers and representatives has been obtained from the patient. N/A * Community resources currently utilized Home Health * Please name any agencies selected above. [facility], NURSNG AND PHYSICAL THERAPY * Additional services required to return to the preadmission environment? No * Can the patient safely return to the preadmission environment? Yes * Has this patient been hospitalized within the prior 30 days at any hospital? Yes Coverage Notice Reviewer: [email or web address] - Timothy Enriquez Notice Issued Date-Time: 06/08/2019 9:35 Notice Type: Patient Choice Letter Notice Delivered To: Patient Relationship to Patient: Registered Phlebotomist Part Time Name: Delivery Method: HAND - Hand Delivered Marianna Days: Prior Verbal Notification: Recipient Understood Notice: Yes Recipient Signature: Yes Med Rec Note Co-signed by Attending: Coverage Notice Comment: [facility] Last DP export: 06/08/19 8:46 a Patient Name: JETT LIMA Page [phone] at 0953 All edits/amendments must be made on the electronic document DICTATION DATE: 06/08/19952 TITLE CLERK AUTOMOBILE: TAMIKO 06/08/19952 RPT#: [id number] DC DATE: STATUS: ADM IN [facility] [address] [place] [address] END OF REPORT
--- NOTE | 2019-06-08 10:00 | MORECARE ---
CASE MANAGEMENT DISCHARGE SUMMARY PATIENT: JETT LIMA UNIT: [id number] ADM DATE: 06/06/19 AGE: 69 : 48 SEX: M ROOM/BED: D.9472 AUTHOR: JENNIFER CLARK PHYSICIAN: REFERRING PHYSICIAN: SAM HINTON MD DATE OF SERVICE: 06/08/19 Discharge Plan Patient Name: JETT LIMA Facility: [facility]:[place] : 1950 Planned Disposition: Home with Home Health Anticipated Discharge Date: Discharge Date: Expected LOS: Initial Reviewer: [email or web address] Initial Review Date: 06/08/2019 Generated: 06/08/19 11:00 am Comments DCP- Discharge Planning Updated by [email or web address]: Timothy Enriquez on 06/08/19 9:[address] Patient Name: JETT LIMA Admission Status: Elective Accout number: [id number] Admission Date: 06-06-2019 : 1950 Admission Diagnosis:SYNCOPE AND COLLAPSE Attending: CINDI HINTON Current LOS: 2 Anticipated DC Date: Planned Disposition: Home with Home Health Primary Insurance: MEDICARE A & B PLANNED EXTERNAL PROVIDER: [facility] Discharge Planning Comments: CM MET WITH PT IN ROOM TO DISCUSS DISCHARGE PLANNING AND NEEDS. PT REPORTS LIVING AT HOME INDEPENDENTLY WITH HIS . PT HAS WALKER AND HOME / PORTABLE OXYGEN, CANNOT REMEMBER HIS MEDICAL EQUIPMENT PROVIDER. PT HAS [facility] FOR NURSING AND PHYSICAL THERAPY. PT WAS IN REHAB PRIOR TO ADMIT ON THE FLOOR BUT STATES HE IS NOT RETURNING TO REHAB, HE WILL GO HOME AND HAVE HOME HEALTH THERAPY. CM DISCUSSED AVAILABILITY OF HOME HEALTH, REHAB SERVICES AND MEDICAL EQUIPMENT. CM REVIEWED THERAPY NOTES IN DETAIL WITH PT. CM DISCUSSED PT'S ISSUES WITH BLOOD PRESSURE, DISCUSSED HAVING A SAFE DISCHARGE PLAN. PT INSISTS THAT HE IS SAFE AT HOME, FEELS STRONG ENOUGH TO GO HOME AT DISCHARGE AND WILL BE GOING HOME AT DISCHARGE. CHOICE FOR [facility] SIGNED. PT DENIES DISCHARGE NEEDS, OTHER THAN HOME HEALTH. PT REPORTS HIS WILL PICK HIM UP FOR DISCHARGE HOME. PT DOES NOT WANT TO RETURN TO INPATIENT REHAB. PT STATES HE WILL RETURN HOME WITH SPOUSE AND [facility] FOR HOME THERAPY. CM TO FOLLOW AND ASSIST NEEDED. Health Unit Clerk: Timothy Enriquez DCPIA - Discharge Planning Initial Assessment Updated by [email or web address]: Timothy Enriquez on 06/08/19 9:51 am * Is the patient Alert and Oriented? Yes * How many steps to enter\exit or inside your home? * PCP DR. VILLAREAL * Pharmacy [address] * Preadmission Environment Home with Family * ADLs Independent * Equipment Oxygen Walker * Other Equipment HOME AND PORTABLE OXYGEN, UNKNOWN PROVIDER * List name and contact numbers for known caregivers / representatives who currently or will assist patient after discharge: VENESSA LIMA, SPOUSE, * Verbal permission to speak to the caregivers and representatives has been obtained from the patient. N/A * Community resources currently utilized Home Health * Please name any agencies selected above. [facility], [facility]UR[facility] AND PHYSICAL THERAPY * Additional services required to return to the preadmission environment? No * Can the patient safely return to the preadmission environment? Yes * Has this patient been hospitalized within the prior 30 days at any hospital? Yes External Providers [facility] Next Contact Date: 06/08/2019 Service Request Date: Service Type: Resolution: Reviewer: Comments: Coverage Notice Reviewer: [id number] - Timothy Enriquez Notice Issued Date-Time: 06/08/2019 9:35 Notice Type: Patient Choice Letter Notice Delivered To: Patient Relationship to Patient: Sled Maker Name: Delivery Method: HAND - Hand Delivered Marianna Days: Prior Verbal Notification: Recipient Understood Notice: Yes Recipient Signature: Yes Med Rec Note Co-signed by Attending: Coverage Notice Comment: [facility] Last DP export: 06/08/19 8:53 a Patient Name: JETT LIMA Page [phone] at 1000 All edits/amendments must be made on the electronic document DICTATION DATE: 06/08/19 1000 AUTOMOBILE ASSEMBLER: TAMIKO 06/08/19 1000 RPT#: [id number] DC DATE: STATUS: ADM IN [facility] [address] [place] [address] END OF REPORT
--- NOTE | 2019-06-08 16:16 | NUR ---
ASSUMED PRIMARY CARE OF PATIENT, ROOM FULL OF VISTTORS. ON 2L PER NC. WILL FOLLOW AND ASSESS NEEDED.
--- NOTE | 2019-06-08 19:30 | NUR ---
RESUMING PATIENT CARE. PATIENT IS ALERT AND ORIENTED, RESTING COMFORTABLY IN BED. RESPIRATIONS ARE EVEN AND UNLABORED. NO S/S OF DISTRESS. NO C/O PAIN. CALL LIGHT WITHIN REACH. SHIFT ASSESSMENT COMPLETE. WILL CPOC.
[2019-06-09] VITALS (32 sets, daily range): BP systolic 104–154; BP diastolic 45–79
[2019-06-09 05:18] LABS: BASOPHILS 0.3 % (0-2); EOSINOPHILS 8.2 % (0-7); HEMATOCRIT 29.7 % (42.0-54.0); HEMOGLOBIN 10.4 g/dL (13.5-17.5); IMMATURE GRANULOCYTES 0.8 % (0-5); LYMPHOCYTES 13.9 % (15-50); MCH 29.4 pg (26.0-34.0); MCV 83.9 fL (80.0-100.0); MEAN PLATELET VOLUME 8.6 fL (7.4-10.4); MONOCYTES 6.3 % (2-11); NEUTROPHILS 70.5 % (40-80); PLATELET COUNT 144 10x3/uL (130-400); RBC 3.54 10x6/uL (4.20-6.10); RDW 15.2 % (11.5-14.5); WBC 8.6 10x3/uL (4.8-10.8)
[2019-06-09 05:22] LABS: APTT 39.2 SECONDS (22.8-39.4); INR 1.1 (0.85-1.17); PROTIME 13.7 SECONDS (11.6-15.0)
[2019-06-09 05:24] LABS: ANION GAP 10.3 mmol/L (8-16); CALCIUM 7.8 mg/dL (8.5-10.1); CARBON DIOXIDE 26.9 mmol/L (21.0-32.0); CREATININE - SERUM 1.4 mg/dL (0.6-1.3); PHOSPHOROUS 2.4 mg/dL (2.5-4.9); POTASSIUM - SERUM 4.2 mmol/L (3.5-5.1)
--- NOTE | 2019-06-09 09:22 | NUR ---
ORTHOSTATIC B/P: LYNG 126/67 95, SITTING 141/77 95, STANDING 92/46 107.
[2019-06-09 10:31] LABS: % SATURATION 15 % (15-55); IRON 19 ug/dl (35-150); TOTAL IRON BIND CAPACITY 126 ug/dl (260-445); UNSAT IRON BIND CAPACITY 107 ug/dl (150-375)
--- NOTE | 2019-06-09 10:38 | NUR ---
UP SOB WITH PT ASSIST. FAMILY AT BS. WILL CONT. PLAN OF CARE.
--- NOTE | 2019-06-09 13:14 | NUR ---
Nutrition Follow-up: NPO for CT bx of RUL mass today. Per chart review, PO intake prior to NPO status appears poor. BM: 06/07 Labs noted: PO4 2.4, Ca 7.8, Na 122, Mg 2.0 Meds noted: Humalog, Neutraphos, Mg Sulfate, Colace Following procedure, rec ADAT as medically feasible; offer nutrition supplements. RD following.
--- NOTE | 2019-06-09 13:17 | NUR ---
LEAVING FOR CT BY BED FOR LUNG BIOPSY.
--- NOTE | 2019-06-09 14:36 | NUR ---
BACK FROM IR. VS WNL. RIGHT CHEST BREE AU.
--- NOTE | 2019-06-09 19:29 | NUR ---
RECIEVED RESTING IN BED WITH EYES OPEN AND RT IN THE ROOM. ALERT AND ORIENTED X4. O2@ 2 LITERS PER N/C IN PLACE. ISMA HOSE AND SCD'S IN PLACE. TELEMETRY IN PLACE. IV TO RIGHT AND LEFT FA SL.. NO REDNESS OR SWELLING TO SITES WITH DSG'S INTACT. DENIES ANY NEEDS AT THIS TIME.
[2019-06-10] VITALS (26 sets, daily range): BP systolic 108–159; BP diastolic 56–78
[2019-06-10 05:34] LABS: BASOPHILS 0.2 % (0-2); EOSINOPHILS 10.6 % (0-7); HEMATOCRIT 28.3 % (42.0-54.0); HEMOGLOBIN 9.8 g/dL (13.5-17.5); IMMATURE GRANULOCYTES 0.4 % (0-5); LYMPHOCYTES 17.5 % (15-50); MCH 29.2 pg (26.0-34.0); MCHC 34.6 g/dL (31.0-37.0); MCV 84.2 fL (80.0-100.0); MEAN PLATELET VOLUME 8.8 fL (7.4-10.4); MONOCYTES 7.7 % (2-11); NEUTROPHILS 63.6 % (40-80); PLATELET COUNT 139 10x3/uL (130-400); RBC 3.36 10x6/uL (4.20-6.10); WBC 9.1 10x3/uL (4.8-10.8)
[2019-06-10 05:57] LABS: ANION GAP 11.8 mmol/L (8-16); CARBON DIOXIDE 24.8 mmol/L (21.0-32.0); CREATININE - SERUM 1.5 mg/dL (0.6-1.3); MAGNESIUM - SERUM 1.6 mg/dL (1.8-2.4); PHOSPHOROUS 2.8 mg/dL (2.5-4.9); POTASSIUM - SERUM 4.6 mmol/L (3.5-5.1)
--- NOTE | 2019-06-10 07:15 | NUR ---
RECEIVED PT IN BED EYES CLOSED RESP UNLABORED SKIN W/D COLOR WNL NAD NOTED
[2019-06-11] VITALS (27 sets, daily range): BP systolic 92–178; BP diastolic 51–80
[2019-06-11 05:10] LABS: BASOPHILS 0.4 % (0-2); EOSINOPHILS 11.1 % (0-7); HEMATOCRIT 26.8 % (42.0-54.0); HEMOGLOBIN 9.4 g/dL (13.5-17.5); IMMATURE GRANULOCYTES 0.3 % (0-5); LYMPHOCYTES 21.5 % (15-50); MCH 29.4 pg (26.0-34.0); MCHC 35.1 g/dL (31.0-37.0); MCV 83.8 fL (80.0-100.0); MEAN PLATELET VOLUME 8.4 fL (7.4-10.4); MONOCYTES 7.7 % (2-11); PLATELET COUNT 124 10x3/uL (130-400); RDW 15.1 % (11.5-14.5); WBC 7.9 10x3/uL (4.8-10.8)
[2019-06-11 05:29] LABS: ANION GAP 12.7 mmol/L (8-16); CALCIUM 8.3 mg/dL (8.5-10.1); CARBON DIOXIDE 25.9 mmol/L (21.0-32.0); CREATININE - SERUM 1.5 mg/dL (0.6-1.3); MAGNESIUM - SERUM 1.5 mg/dL (1.8-2.4); PHOSPHOROUS 2.5 mg/dL (2.5-4.9); POTASSIUM - SERUM 4.6 mmol/L (3.5-5.1)
--- NOTE | 2019-06-11 07:14 | NUR ---
RECEIVED PT IN BED AAOX4 RESP UNLABORED SKIN W/D GENERALIZED WEAKNESS NOTED WILL CONTINUE TO MONITOR
[2019-06-11 11:24] LABS: ALBUMIN 2.3 g/dL (3.4-5.0); BILIRUBIN - DIRECT 0.15 mg/dL (0.00-0.30); BILIRUBIN - INDIRECT 0.24 mg/dL (0.00-1.00); BILIRUBIN - TOTAL 0.39 mg/dL (0.2-1.3); PROTEIN - SERUM 6.1 g/dL (6.4-8.2)
--- NOTE | 2019-06-11 22:44 | NUR ---
RECIEVED LAYING IN BED WITH HOB ELEVATED AND EYES OPEN. ALERT AND ORIENTED X4. O2 @ 2 LITERS PER N/C. CONT TO DO Q1 HR V/S'S. IV TO RT AND LT ARM SL.. DENIES ANY NEEDS AT THIS TIME.
[2019-06-12] VITALS (24 sets, daily range): BP systolic 106–164; BP diastolic 45–100
[2019-06-12 05:29] LABS: BASOPHILS 0.3 % (0-2); EOSINOPHILS 10.8 % (0-7); HEMATOCRIT 26.9 % (42.0-54.0); HEMOGLOBIN 9.5 g/dL (13.5-17.5); IMMATURE GRANULOCYTES 0.4 % (0-5); LYMPHOCYTES 22.5 % (15-50); MCH 29.5 pg (26.0-34.0); MCHC 35.3 g/dL (31.0-37.0); MCV 83.5 fL (80.0-100.0); MEAN PLATELET VOLUME 8.4 fL (7.4-10.4); MONOCYTES 8.2 % (2-11); NEUTROPHILS 57.8 % (40-80); RBC 3.22 10x6/uL (4.20-6.10); RDW 14.9 % (11.5-14.5); WBC 6.9 10x3/uL (4.8-10.8)
[2019-06-12 05:46] LABS: PLATELET COUNT 151 10x3/uL (130-400)
[2019-06-12 05:51] LABS: ANION GAP 11.2 mmol/L (8-16); CALCIUM 8.1 mg/dL (8.5-10.1); CARBON DIOXIDE 25.7 mmol/L (21.0-32.0); CREATININE - SERUM 1.4 mg/dL (0.6-1.3); MAGNESIUM - SERUM 1.5 mg/dL (1.8-2.4); PHOSPHOROUS 2.7 mg/dL (2.5-4.9); POTASSIUM - SERUM 3.9 mmol/L (3.5-5.1)
--- NOTE | 2019-06-12 10:06 | NUR ---
ORTHOSTATIC VS: LYING 130/67 77, SITTING 112/60 87, STANDING 88/51 91. DONE BY PT WITH OPERATOR AUTOMATED PROCESS ASSIST.
--- NOTE | 2019-06-12 12:58 | NUR ---
Nutrition Follow-up: Pt reports fair appetite/PO intake; no change. Diet: AHA PO intake: 75% this AM BM: 06/11 Wt: 140# Labs noted: Ca 8.1, GFR 53, Na 122, Mg 1.5 Meds noted: MagOx, Nephrovite, Colace, Humalog Rec continue current diet as tolerated. Encourage PO intake. [place] food preferences within diet order. RD following.
--- NOTE | 2019-06-12 19:33 | NUR ---
RECIEVED UP IN BED WITH EYES OPENA ND TV ON. ALERT AND ORIENTED X4. REMAINS ON BEDREST. USES URINAL. CONT TO HAVE V/S'S Q1HR. IVETTE AREA TO COCCYX. EDUCATED PT ON TURNING AND REPOSITIONING TO RELIEVE PRESSURE. IV TO RT AND LT FA SL.. TELEMETRY IN PLACE. SCD'S IN PLACE. DENIES ANY NEEDS AT THIS TIME.
[2019-06-13] VITALS (26 sets, daily range): BP systolic 98–177; BP diastolic 53–86
--- NOTE | 2019-06-13 01:09 | NUR ---
RECIEVED REPORT FROM LINETTE AREVALO IN ER. ARRIVED TO FLOOR VIA STRETCHER ACCOMPANIED BY STAFF. TRANSFERED SELF TO BED. ALERT AND ORIENTED X4. UP AD SAVANA. LUNG SOUNDS CRACKLES IN UPPER LOBES BILATERALLY. DIMINISHED LOWER LOBES. EDEMA TO LOWER EXTREMITIES. IV TO LEFT HAND AND RIGHT FA SL.. TELEMETRY IN PLACE. DENIES ANY NEEDS AT THIS TIME.
[2019-06-13 05:12] LABS: BASOPHILS 0.5 % (0-2); EOSINOPHILS 11.7 % (0-7); HEMATOCRIT 26.7 % (42.0-54.0); HEMOGLOBIN 9.3 g/dL (13.5-17.5); IMMATURE GRANULOCYTES 0.3 % (0-5); MCH 29.2 pg (26.0-34.0); MCHC 34.8 g/dL (31.0-37.0); MEAN PLATELET VOLUME 8.2 fL (7.4-10.4); MONOCYTES 8.7 % (2-11); NEUTROPHILS 52.8 % (40-80); PLATELET COUNT 157 10x3/uL (130-400); RBC 3.18 10x6/uL (4.20-6.10); RDW 14.8 % (11.5-14.5); WBC 6.3 10x3/uL (4.8-10.8)
[2019-06-13 05:30] LABS: ANION GAP 9.9 mmol/L (8-16); CALCIUM 8.1 mg/dL (8.5-10.1); CARBON DIOXIDE 27.9 mmol/L (21.0-32.0); CREATININE - SERUM 1.4 mg/dL (0.6-1.3); PHOSPHOROUS 2.6 mg/dL (2.5-4.9); POTASSIUM - SERUM 3.8 mmol/L (3.5-5.1)
[2019-06-13 05:34] LABS: MAGNESIUM - SERUM 2.1 mg/dL (1.8-2.4)
--- NOTE | 2019-06-13 11:15 | NUR ---
ORTHOSTATIC B/P: LYING 153/71 76, SITTING 119/59 82, STANDING 96/53 89.
--- NOTE | 2019-06-13 13:37 | NUR ---
Nutrition follow-up: Chart reviewed. Pt is now assessed with severe malnutrition of chronic illness R/T renal insufficiency, CVA AEB ~12% weight loss over the last month (158# on May 11 and current wt June 11 140#) < 75% intake of estimated energy needs for > 1 month (pt is averaging ~50% of meals) moderate to severe fluid accumulation (Pt started on FR & salt tablets today) Will continue to provide food choices and honor food preferences within diet restrictions and offer nutritional supplements. Pt would benefit from nutrition support if wt loss continues. RDN following.
--- NOTE | 2019-06-13 16:11 | MORECARE ---
CASE MANAGEMENT DISCHARGE SUMMARY PATIENT: JETT LIMA UNIT: [id number] ADM DATE: 06/06/19 AGE: 69 : 48 SEX: M ROOM/BED: D.6098 AUTHOR: JENNIFER CLARK PHYSICIAN: REFERRING PHYSICIAN: SAM HINTON MD DATE OF SERVICE: 06/13/19 Discharge Plan Patient Name: JETT LIMA Facility: [facility] : 1950 Planned Disposition: Home with Home Health Anticipated Discharge Date: Discharge Date: Expected LOS: Initial Reviewer: [id number] Initial Review Date: 06/08/2019 Generated: 06/13/19 5:11 pm Comments DCP- Discharge Planning Updated by [id number]: Timothy Enriquez on 06/13/19 3:[address] Patient Name: JETT LIMA Encounter No: [id number] : 1950 Primary Insurance: MEDICARE A & B Anticipated DC Date: Planned Disposition: Home with Home Health External Planned Provider: [facility] DCP follow-up note: CM RECEIVED ORDER FOR INPATIENT REHAB, MET WITH PT IN ROOM, DISCUSSED REHAB OPTIONS, LOCATIONS AND PROVIDERS. PT REPORTS HE IS NOT GOING TO REHAB, HE IS GOING HOME WITH [facility] PREVIOUSLY STATED. CM SPOKE TO VIKY OF [facility], PROVIDED UPDATE. PT REFUSES REHAB PLACEMENT. FOR DISCHARGE HOME WITH HOME HEALTH, NOTIFY [facility], , FAX DISCHARGE INFORMATION TO [facility] AT [phone]. FAMILY TO TRANSPORT HOME. DIANA Massey DCP- Discharge Planning Updated by [email or web address]: Timothy Enriquez on 06/08/19 9:[address] Patient Name: JETT LIMA Admission Status: Elective Accout number: [id number] Admission Date: 06-06-2019 : 1950 Admission Diagnosis:SYNCOPE AND COLLAPSE Attending: CINDI HINTON Current LOS: 2 Anticipated DC Date: Planned Disposition: Home with Home Health Primary Insurance: MEDICARE A & B PLANNED EXTERNAL PROVIDER: [facility] Discharge Planning Comments: CM MET WITH PT IN ROOM TO DISCUSS DISCHARGE PLANNING AND NEEDS. PT REPORTS LIVING AT HOME INDEPENDENTLY WITH HIS . PT HAS WALKER AND HOME / PORTABLE OXYGEN, CANNOT REMEMBER HIS MEDICAL EQUIPMENT PROVIDER. PT HAS [facility] FOR NURSING AND PHYSICAL THERAPY. PT WAS IN REHAB PRIOR TO ADMIT ON THE FLOOR BUT STATES HE IS NOT RETURNING TO REHAB, HE WILL GO HOME AND HAVE HOME HEALTH THERAPY. CM DISCUSSED AVAILABILITY OF HOME HEALTH, REHAB SERVICES AND MEDICAL EQUIPMENT. CM REVIEWED THERAPY NOTES IN DETAIL WITH PT. CM DISCUSSED PT'S ISSUES WITH BLOOD PRESSURE, DISCUSSED HAVING A SAFE DISCHARGE PLAN. PT INSISTS THAT HE IS SAFE AT HOME, FEELS STRONG ENOUGH TO GO HOME AT DISCHARGE AND WILL BE GOING HOME AT DISCHARGE. CHOICE FOR [facility] SIGNED. PT DENIES DISCHARGE NEEDS, OTHER THAN HOME HEALTH. PT REPORTS HIS WILL PICK HIM UP FOR DISCHARGE HOME. PT DOES NOT WANT TO RETURN TO INPATIENT REHAB. PT STATES HE WILL RETURN HOME WITH SPOUSE AND [facility] FOR HOME THERAPY. CM TO FOLLOW AND ASSIST NEEDED. Picker Packer: Timothy Enriquez DCPIA - Discharge Planning Initial Assessment Updated by [id number]: Timothy Enriquez on 06/08/19 9:51 am * Is the patient Alert and Oriented? Yes * How many steps to enter\exit or inside your home? * PCP DR. VILLAREAL * Pharmacy [address] * Preadmission Environment Home with Family * ADLs Independent * Equipment Oxygen Walker * Other Equipment HOME AND PORTABLE OXYGEN, UNKNOWN PROVIDER * List name and contact numbers for known caregivers / representatives who currently or will assist patient after discharge: VENESSA LIMA, SPOUSE, * Verbal permission to speak to the caregivers and representatives has been obtained from the patient. N/A * Community resources currently utilized Home Health * Please name any agencies selected above. [facility], NURSNG AND PHYSICAL THERAPY * Additional services required to return to the preadmission environment? No * Can the patient safely return to the preadmission environment? Yes * Has this patient been hospitalized within the prior 30 days at any hospital? Yes Coverage Notice Reviewer: [id number] Rosalba Enriquez Notice Issued Date-Time: 06/08/2019 9:35 Notice Type: Patient Choice Letter Notice Delivered To: Patient Relationship to Patient: Mobile Ui/Ux Designer Name: Delivery Method: HAND - Hand Delivered Marianna Days: Prior Verbal Notification: Recipient Understood Notice: Yes Recipient Signature: Yes Med Rec Note Co-signed by Attending: Coverage Notice Comment: [facility] Reviewer: [id number] Rosalba Enriquez Notice Issued Date-Time: 06/13/2019 11:35 Notice Type: IM Discharge Notice Notice Delivered To: Patient Relationship to Patient: Mobile Ui/Ux Designer Name: Delivery Method: HAND - Hand Delivered Marianna Days: Prior Verbal Notification: Recipient Understood Notice: Yes Recipient Signature: Yes Med Rec Note Co-signed by Attending: Coverage Notice Comment: Last DP export: 06/08/19 9:00 a Patient Name: JETT LIMA Page [phone] at 1611 All edits/amendments must be made on the electronic document DICTATION DATE: 06/13/19 1611 FINANCIAL SALES ASSISTANT: TAMIKO 06/13/19 1611 RPT#: [id number] DC DATE: STATUS: ADM IN [facility] [address] [place] [address] END OF REPORT
--- NOTE | 2019-06-13 16:19 | NUR ---
Rehab Note- Acute Inpatient Rehab prescreen order received. The patient was just recently discharged from our acute inpatient rehab unit & stayed his full stay & cannot be readmitted to the acute inpatient rehab at this time. Thank you for this referral! Princess Hdez RN Clinical Liaison, [facility] Rehab
--- NOTE | 2019-06-13 19:30 | NUR ---
RECEIVED REPORT, WILL CPOC. PATIENT IS A/OX4, UP WITH ASSIST. RR EVEN AND UNLABORED, NO S/SX OF DISTRESS NOTED. PATIENT HAS A RT AND LT IV BOTH SL AND BREEGS C/D/I. 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 ISMA SONA AND SCD'S ON, CL IN REACH, BED LOCKED AND LOWERED. PATIENT DENIES FURTHER NEEDS. WILL CTM.
[2019-06-14] VITALS (27 sets, daily range): BP systolic 122–168; BP diastolic 48–89
--- NOTE | 2019-06-14 02:40 | NUR ---
I have reviewed this patient and I concur with the Shift Assessment completed by the Licensed Practical Nurse today this shift.
--- NOTE | 2019-06-14 07:54 | NUR ---
ORTHOSTATIC B/P: LYIN/73, SITTING 129/86 79, STANDING 131/72 89.
--- NOTE | 2019-06-14 09:25 | NUR ---
UP AMBULATING HALLWAY WITH PT ASSIST.
--- NOTE | 2019-06-14 13:36 | NUR ---
VS STABLE. UP AMBULATING HALLWAY WITH PT ASSIST.
--- NOTE | 2019-06-14 19:31 | NUR ---
RESUMING PATIENT CARE. PATIENT IS ALERT AND ORIENTED, RESTING COMFORTABLY IN BED. RESPIRATIONS ARE EVEN AND UNALBORED. PATIENT REMAINS ON 2L NC. NO S/S OF DISTRESS. NO C/O PAIN. DENIES NEEDS. CALL LIGHT WITHIN REACH. WILL CPOC.
[2019-06-15] VITALS (17 sets, daily range): BP systolic 107–167; BP diastolic 59–80
[2019-06-15 06:05] LABS: BASOPHILS 0.8 % (0-2); EOSINOPHILS 10.6 % (0-7); HEMATOCRIT 27.1 % (42.0-54.0); HEMOGLOBIN 9.5 g/dL (13.5-17.5); IMMATURE GRANULOCYTES 0.8 % (0-5); MCH 29.6 pg (26.0-34.0); MCHC 35.1 g/dL (31.0-37.0); MCV 84.4 fL (80.0-100.0); MEAN PLATELET VOLUME 8.3 fL (7.4-10.4); MONOCYTES 9.6 % (2-11); NEUTROPHILS 50.2 % (40-80); PLATELET COUNT 164 10x3/uL (130-400); RBC 3.21 10x6/uL (4.20-6.10); RDW 14.8 % (11.5-14.5); WBC 5.3 10x3/uL (4.8-10.8)
[2019-06-15 06:32] LABS: ANION GAP 11.8 mmol/L (8-16); CALCIUM 8.3 mg/dL (8.5-10.1); CARBON DIOXIDE 26.4 mmol/L (21.0-32.0); CREATININE - SERUM 1.3 mg/dL (0.6-1.3); POTASSIUM - SERUM 4.2 mmol/L (3.5-5.1)
--- NOTE | 2019-06-15 07:15 | NUR ---
RECEIVED PT IN BED AAOX4 RESP UNLABORED SKIN W/D COLOR PALE PT STATES HE FEELS STRONGER THIS MORNING DENIES AND NEEDS OR DISCOMFORT WILL CONTINUE TO MONITOE
[2019-06-15] MEDS ORDERED: MIDODRINE HCL5 MG PO (11:30)
[2019-06-15] MEDS ORDERED: THERMOTABS 1 GM1 GM (12:33)
--- NOTE | 2019-06-15 12:40 | NUR ---
I CALLED JORDYN OZUNA APN FOR NEW MEDS FROM PROGRESS NOTE OF [facility] CHLORIDE [facility] AND WHEN NEEDING FOLLOW UP. NEW ORDERS RECEIVED.
--- NOTE | 2019-06-15 13:59 | MORECARE ---
CASE MANAGEMENT DISCHARGE SUMMARY PATIENT: JETT LIMA UNIT: [id number] ADM DATE: 06/06/19 AGE: 69 : 48 SEX: M ROOM/BED: D.4931 AUTHOR: EDUARDODOC PHYSICIAN: REFERRING PHYSICIAN: ZAC BRENNAN MD DATE OF SERVICE: 06/15/19 Discharge Plan Patient Name: JETT LIMA Facility: [facility]:[place] : 1950 Planned Disposition: Home with Home Health Anticipated Discharge Date: 06/15/19 Discharge Date: Expected LOS: 9 Initial Reviewer: [id number] Initial Review Date: 06/08/2019 Generated: 06/15/19 2:59 pm Comments DCP- Discharge Planning Updated by [id number]: Timothy Enriquez on 06/15/19 12:[address] Patient Name: JETT LIMA Encounter No: [id number] : 1950 Primary Insurance: MEDICARE A & B Anticipated DC Date: 06-15-2019 Planned Disposition: Home with Home Health External Planned Provider: [facility] DCP follow-up note: CM RECEIVED DISCHARGE ORDER, NOTIFIED [facility] OF [facility], , FAXED DISCHARGE INFORMATION TO [facility] AT [phone]. FAMILY TO TRANSPORT HOME. DIANA Massey DCP- Discharge Planning Updated by [id number]: Timothy Enriquez on 06/13/19 3:[address] Patient Name: JETT LIMA Encounter No: [id number] : 1950 Primary Insurance: MEDICARE A & B Anticipated DC Date: Planned Disposition: Home with Home Health External Planned Provider: [facility] DCP follow-up note: CM RECEIVED ORDER FOR INPATIENT REHAB, MET WITH PT IN ROOM, DISCUSSED REHAB OPTIONS, LOCATIONS AND PROVIDERS. PT REPORTS HE IS NOT GOING TO REHAB, HE IS GOING HOME WITH [facility] PREVIOUSLY STATED. CM SPOKE TO VI[facility] OF [facility], PROVIDED UPDATE. PT REFUSES REHAB PLACEMENT. FOR DISCHARGE HOME WITH HOME HEALTH, NOTIFY [facility], , FAX DISCHARGE INFORMATION TO [facility] AT [phone]. FAMILY TO TRANSPORT HOME. Timothy Enriquez, CASE MANAGEMENT DCP- Discharge Planning Updated by [id number]: Timothy Enriquez on 06/08/19 9:[address] Patient Name: JETT LIMA Admission Status: Elective Accout number: [id number] Admission Date: 06-06-2019 : 1950 Admission Diagnosis:SYNCOPE AND COLLAPSE Attending: CINDI HINTON Current LOS: 2 Anticipated DC Date: Planned Disposition: Home with Home Health Primary Insurance: MEDICARE A & B PLANNED EXTERNAL PROVIDER: [facility] Discharge Planning Comments: CM MET WITH PT IN ROOM TO DISCUSS DISCHARGE PLANNING AND NEEDS. PT REPORTS LIVING AT HOME INDEPENDENTLY WITH HIS . PT HAS WALKER AND HOME / PORTABLE OXYGEN, CANNOT REMEMBER HIS MEDICAL EQUIPMENT PROVIDER. PT HAS [facility] FOR NURSING AND PHYSICAL THERAPY. PT WAS IN REHAB PRIOR TO ADMIT ON THE FLOOR BUT STATES HE IS NOT RETURNING TO REHAB, HE WILL GO HOME AND HAVE HOME HEALTH THERAPY. CM DISCUSSED AVAILABILITY OF HOME HEALTH, REHAB SERVICES AND MEDICAL EQUIPMENT. CM REVIEWED THERAPY NOTES IN DETAIL WITH PT. CM DISCUSSED PT'S ISSUES WITH BLOOD PRESSURE, DISCUSSED HAVING A SAFE DISCHARGE PLAN. PT INSISTS THAT HE IS SAFE AT HOME, FEELS STRONG ENOUGH TO GO HOME AT DISCHARGE AND WILL BE GOING HOME AT DISCHARGE. CHOICE FOR [facility] SIGNED. PT DENIES DISCHARGE NEEDS, OTHER THAN HOME HEALTH. PT REPORTS HIS WILL PICK HIM UP FOR DISCHARGE HOME. PT DOES NOT WANT TO RETURN TO INPATIENT REHAB. PT STATES HE WILL RETURN HOME WITH SPOUSE AND [facility] FOR HOME THERAPY. CM TO FOLLOW AND ASSIST NEEDED. House Moving Supervisor: Timothy Enriquez DCPIA - Discharge Planning Initial Assessment Updated by [id number]: Timothy Enriquez on 06/08/19 9:51 am * Is the patient Alert and Oriented? Yes * How many steps to enter\exit or inside your home? * PCP DR. VILLAREAL * Pharmacy [address] * Preadmission Environment Home with Family * ADLs Independent * Equipment Oxygen Walker * Other Equipment HOME AND PORTABLE OXYGEN, UNKNOWN PROVIDER * List name and contact numbers for known caregivers / representatives who currently or will assist patient after discharge: VENESSA LIMA, SPOUSE, * Verbal permission to speak to the caregivers and representatives has been obtained from the patient. N/A * Community resources currently utilized Home Health * Please name any agencies selected above. [facility], NURSNG AND PHYSICAL THERAPY * Additional services required to return to the preadmission environment? No * Can the patient safely return to the preadmission environment? Yes * Has this patient been hospitalized within the prior 30 days at any hospital? Yes Coverage Notice Reviewer: [id number] Rosalba Enriquez Notice Issued Date-Time: 06/08/2019 9:35 Notice Type: Patient Choice Letter Notice Delivered To: Patient Relationship to Patient: Plate Painter Name: Delivery Method: HAND - Hand Delivered Marianna Days: Prior Verbal Notification: Recipient Understood Notice: Yes Recipient Signature: Yes Med Rec Note Co-signed by Attending: Coverage Notice Comment: [facility] Reviewer: [id number] Rosalba Enriquez Notice Issued Date-Time: 06/13/2019 11:35 Notice Type: IM Discharge Notice Notice Delivered To: Patient Relationship to Patient: Plate Painter Name: Delivery Method: HAND - Hand Delivered Marianna Days: Prior Verbal Notification: Recipient Understood Notice: Yes Recipient Signature: Yes Med Rec Note Co-signed by Attending: Coverage Notice Comment: Last DP export: 06/13/19 3:11 p Patient Name: JETT LIMA Page [phone] at 1359 All edits/amendments must be made on the electronic document DICTATION DATE: 06/15/19 135 MYSQL DATABASE ADMINISTRATOR: TAMIKO 06/15/19 1359 RPT#: [id number] DC DATE: STATUS: ADM IN [facility] [address] [place] [address] END OF REPORT
--- NOTE | 2019-06-15 15:15 | NUR ---
REVIEWED DISCHARGE INSTRUCTIONS PT AND STATES UNDERSTANDING COPY GIVEN SALINE LOCKS DCD TO RT AND LT FOREAMS WITH IV CATHETERS INTACT SITES FREE OF REDNESS OR EDEMA PT DISCHARGED HOME LEFT UNIT VIA W/C IN STABLE CONDITION ON 2 LPM NC OF HOME O2 ALL BELONGINGS WITH PT
== END 2019-06-15 15:15 | disposition home health service (06) | DRG 312 ==
LOC: D.M2 16:16
PROVIDERS: Family Medicine; Internal Medicine Nephrology; Internal Medicine Pulmonary Disease; Radiology Diagnostic Radiology; ADMIT Internal Medicine Nephrology; ATTEND Internal Medicine Nephrology
PROC: 0BBC3ZX Excision of Right Upper Lung Lobe, Percutaneous Approach, Diagnostic (ICD-10-PCS; principal; 2019-06-09 13:40)
DX: I95.1 Orthostatic hypotension (principal); E43 Unspecified severe protein-calorie malnutrition; N17.9 Acute kidney failure, unspecified; E87.1 Hypo-osmolality and hyponatremia; C34.11 Malignant neoplasm of upper lobe, right bronchus or lung; E22.2 Syndrome of inappropriate secretion of antidiuretic hormone; E11.9 Type 2 diabetes mellitus without complications; I25.10 Atherosclerotic heart disease of native coronary artery without angina pectoris; I10 Essential (primary) hypertension; E03.9 Hypothyroidism, unspecified; M32.9 Systemic lupus erythematosus, unspecified; Z86.73 Personal history of transient ischemic attack (TIA), and cerebral infarction without residual deficits; Z68.21 Body mass index [BMI] 21.0-21.9, adult

== ENCOUNTER → 2019-06-28 11:02 | Outpatient (CLI) | payer MEDICARE, BC ==
[2019-06-07 13:00] VITALS: BMI 21.7
[~2019-06-28 11:02] MED LIST changes: +MIDODRINE HCL5 MG PO; +POLY-VI-SOL W/I50 ML PO; +THERMOTABS 1 GM1 GM
[2019-06-28 12:02] LABS: HEMATOCRIT 28.9 % (42.0-54.0); HEMOGLOBIN 9.9 g/dL (13.5-17.5); MCH 29.5 pg (26.0-34.0); MCHC 34.3 g/dL (31.0-37.0); MEAN PLATELET VOLUME 8.3 fL (7.4-10.4); RBC 3.36 10x6/uL (4.20-6.10); RDW 14.8 % (11.5-14.5); WBC 9.2 10x3/uL (4.8-10.8)
[2019-06-28 12:03] LABS: ANION GAP 12.2 mmol/L (8-16); CALCIUM 8.4 mg/dL (8.5-10.1); CARBON DIOXIDE 26.8 mmol/L (21.0-32.0); CREATININE - SERUM 1.6 mg/dL (0.6-1.3)
== END | disposition home or self-care (01) ==
LOC: D.RAD 11:02
PROVIDERS: ATTEND Thoracic Surgery (Cardiothoracic Vascular Surgery)
DX: Z01.812 Encounter for preprocedural laboratory examination (principal); I25.10 Atherosclerotic heart disease of native coronary artery without angina pectoris

== ENCOUNTER 2019-07-10 07:11 | Day surgery (SDC) | payer MEDICARE, BC ==
[~2019-07-10] VITALS: Ht 167.6 cm; Wt 62.1 kg
[~2019-07-10 07:11] MED LIST changes: -POLY-VI-SOL W/I50 ML PO
[2019-07-10 07:41] LABS: HEMOGLOBIN 10.3 g/dL (13.5-17.5); MCH 28.8 pg (26.0-34.0); MCHC 33.2 g/dL (31.0-37.0); MCV 86.6 fL (80.0-100.0); MEAN PLATELET VOLUME 7.8 fL (7.4-10.4); RBC 3.58 10x6/uL (4.20-6.10); RDW 15.6 % (11.5-14.5); WBC 7.9 10x3/uL (4.8-10.8)
[2019-07-10 07:50] LABS: ANION GAP 12.8 mmol/L (8-16); CALCIUM 8.8 mg/dL (8.5-10.1); CARBON DIOXIDE 25.7 mmol/L (21.0-32.0); CREATININE - SERUM 1.4 mg/dL (0.6-1.3); POTASSIUM - SERUM 4.5 mmol/L (3.5-5.1)
[2019-07-10 07:51] LABS: APTT 37.1 SECONDS (22.8-39.4); INR 1.06 (0.85-1.17); PROTIME 13.3 SECONDS (11.6-15.0)
[2019-07-10] MEDS ORDERED: POLY-VI-SOL W/I50 ML PO (08:50)
[2019-07-10 08:58] VITALS: BP 183/100; Ht 167.6 cm; Wt 62.1 kg
[2019-07-10 09:22] LABS: APPEARANCE CLEAR (CLEAR); BILIRUBIN NEGATIVE (NEGATIVE); COLOR YELLOW (YELLOW); GLUCOSE NEGATIVE (NEGATIVE); KETONE NEGATIVE (NEGATIVE); NITRITE NEGATIVE (NEGATIVE); PROTEIN NEGATIVE (NEGATIVE); SPECIFIC GRAVITY 1.005 (1.005-1.020); UROBILINOGEN NORMAL (NORMAL)
--- NOTE | 2019-07-10 16:10 | NUR ---
PT DC INSTRUCTIONS REVIEWED AT THIS TIME, PT VERBALIZES UNDERSTANDING. PT IV REMOVED AT THIS TIME, INTACT, NO REDNESS OR SWELLING NOTED AT SITE.
--- NOTE | 2019-07-10 16:15 | NUR ---
PT LEAVING OPS AT THIS TIME VIA WC. NAD NOTED, RESPIRATIONS EVEN UNLABORED.
--- NOTE | 2019-07-11 13:43 | OP ---
PATIENT NAME: JETT LIMA MEDICAL RECORD: [id number] :[birth year] LOCATION:D.OPS ADMISSION DATE: SURGEON: ISABELLA ROSALES MD DATE OF OPERATION: 07/10/2019 SURGEON: Isabella Rosales MD MAIL SUPERINTENDENT: Cody Gutierrez. OPERATION PERFORMED: Insertion of port via left subclavian vein. PREOPERATIVE DIAGNOSIS: Neoplasm, right chest. POSTOPERATIVE DIAGNOSIS: Neoplasm, right chest. ANESTHESIA: General and 0.25% Marcaine. COMPLICATIONS: None. SPECIMENS: None. BLOOD LOSS: Minimal. CONDITION: Stable. DISPOSITION: Outpatient surgery. FINDINGS: Good blood return and catheter position by fluoroscopy. INDICATION: Enlarging right chest mass with biopsy, positive for neoplasm for chemotherapy. DESCRIPTION OF PROCEDURE: The patient supine and under anesthesia, the left and right chest were sterilely prepped and draped. A 0.25% Marcaine was used and a port site was created below the left clavicle. The left subclavian was cannulated. Guidewire was passed. Fluoroscopy confirmed the position. Introducer was placed. Then, the catheter was measured to length and cut, brought through the introducer, connected the port. The peel-away sheath was removed. The port was placed in the pocket and sutured in place. Good blood return was noted. The area was irrigated with antibiotic irrigation and closed in 2 layers including Dermabond on the skin. The patient's port was again flushed and he was stable after chest x-ray performed. TRANSINT:[id number] Voice Confirmation ID: [id number] DOCUMENT ID: [id number] ISABELLA ROSALES MD at 1343 CC: [id number] DICTATION DATE: 07/10/19 1451 CERTIFIED GREEN BUILDING ENGINEER: 07/10/[address] [facility] 07/10/19 [place] [id number] [place] [id number]
== END 2019-07-10 16:15 | disposition home or self-care (01) ==
LOC: D.OPS 07:11
PROVIDERS: ATTEND Thoracic Surgery (Cardiothoracic Vascular Surgery)
DX: C34.91 Malignant neoplasm of unspecified part of right bronchus or lung (principal); Z01.812 Encounter for preprocedural laboratory examination